=== PATIENT | male | born 1955 | race Two or more races ===

== ENCOUNTER 2020-04-18 20:25 | Inpatient (IN) | payer MEDICARE ==
[~2020-04-18] VITALS: Ht 165.1 cm; Wt 60.8 kg
[2020-04-18] MEDS: D5NS 1,000 ML IV SCH ×2 (20:00)
[2020-04-18 20:25] VITALS: BP 151/90
[2020-04-18] MEDS ORDERED: levETIRAcetam 1,000mg/NS100ml 100 ML IVPB ONE ×2 (20:30→20:47)
--- NOTE | 2020-04-18 20:45 | Emergency Room Report ---
History of Present Illness General Chief Complaint: Seizure Present Illness HPI Disclaimer: Please note that this report is being documented using [employer] technology. This can lead to erroneous entry secondary to incorrect interpretation by the dictating instrument. HPI: 64-year-old male history of seizure disorder, CVA, presents for recurrent seizure. Patient apparently has been noncompliant with his medications at his intermediate facility and had multiple seizures today lasting approximately 1 minute. On EMS arrival patient was actively seizing and given Versed by EMS. Patient does take Keppra. Patient is a full code. Patient was postictal on arrival and could not provide any history. Allergies: Coded Allergies: No Known Allergies (Unverified , 04/18/20) COVID-19 Screening Contact w/high risk pt: No Experienced COVID-19 symptoms?: No COVID-19 Testing performed [employer]: Yes COVID-19 Screening: Negative COVID-19 COVID-19 Testing Source: 04/06 Patient History Reviewed Nursing Documentation: PMH: Agreed; PSxH: Agreed Review of Systems All Other Systems: limited - Patient postictal on arrival Physical Exam Vital Signs Date Time Temp Pulse Resp B/P (MAP) Pulse Ox O2 Delivery O2 Flow Rate FiO2 04/18/20 20:11 144 20 196/102 (133) 100 Non-Rebreather 15.0 Sp02 EP Interpretation: reviewed, other - Normal O2 on oxygen General Appearance: well appearing, no apparent distress Head: normocephalic, atraumatic Eyes: bilateral eye PERRL, bilateral eye EOMI ENT: no angioedema, moist mucus membranes Neck: full range of motion, supple Respiratory: lungs clear, normal breath sounds, no rhonchi, no respiratory distress, no retraction, no wheezing Cardiovascular #1: normal peripheral pulses, no murmur, tachycardia Gastrointestinal: non tender, soft, non-distended, no guarding Musculoskeletal: other - Lower extremities contracted Neurologic: other - Patient lethargic, withdraws to pain, makes incomprehensible sounds, extremities contracted Skin: normal color, warm/dry Medical Decision Making Diagnostic Impression: Primary Impression: Recurrent seizures Additional Impression: Hypokalemia ER Course MDM: Differential included but not limited to medication noncompliance, breakthrough seizure, atrial fibrillation, dehydration potassium repletion ordered for evidence of hypokalemia. Clinical course-IV inserted cardiac monitoring pulse oximetry, IV Keppra ordered. Patient did have A. fib with RVR requiring diltiazem as well. Rate was controlled with IV diltiazem. Has patient had multiple recurrent seizures, hypokalemia, and A. fib with RVR will require admission the hospital for further observation and treatment. Will be admitted to the telemetry floor. At time of me leaving my shift patient pending admission and will be signed out to oncoming physician to discuss with admitting physician. Labs - Laboratory Tests Test 04/18/20 20:45 04/18/20 21:18 White Blood Count 11.0 K/UL (4.8-10.8) H Red Blood Count 4.19 M/UL (4.70-6.10) L Hemoglobin 12.7 G/DL (14.2-18.0) L Hematocrit 38.5 % (42.0-52.0) L Mean Corpuscular Volume 92 FL (80-99) Mean Corpuscular Hemoglobin 30.4 PG (27.0-31.0) Mean Corpuscular Hemoglobin Concent 33.1 G/DL (32.0-36.0) Red Cell Distribution Width 13.6 % (11.6-14.8) Platelet Count 197 K/UL (150-450) Mean Platelet Volume 14.3 FL (6.5-10.1) H Neutrophils (%) (Auto) 69.6 % (45.0-75.0) Lymphocytes (%) (Auto) 20.2 % (20.0-45.0) Monocytes (%) (Auto) 5.3 % (1.0-10.0) Eosinophils (%) (Auto) 3.9 % (0.0-3.0) H Basophils (%) (Auto) 1.0 % (0.0-2.0) Sodium Level 142 MMOL/L (136-145) Potassium Level 2.7 MMOL/L (3.5-5.1) *L Chloride Level 105 MMOL/L (98-107) Carbon Dioxide Level 32 MMOL/L (21-32) Anion Gap 6 mmol/L (5-15) Blood Urea Nitrogen 14 mg/dL (7-18) Creatinine 1.2 MG/DL (0.55-1.30) Estimated Glomerular Filtration Rate > 60 mL/min (>60) Glucose Level 269 MG/DL (74-106) H Calcium Level 8.8 MG/DL (8.5-10.1) Magnesium Level Pending Total Bilirubin 0.3 MG/DL (0.2-1.0) Aspartate Amino Transferase (AST) 77 U/L (15-37) H Alanine Aminotransferase (ALT) 68 U/L (12-78) Alkaline Phosphatase 138 U/L (46-116) H Total Protein 6.9 G/DL (6.4-8.2) Albumin 2.8 G/DL (3.4-5.0) L Globulin 4.1 g/dL Albumin/Globulin Ratio 0.7 (1.0-2.7) L POC Whole Blood Glucose 251 MG/DL (74-106) H Microbiology Date/Time Source Procedure Growth Status 04/18/20 20:45 Nasopharynx SARS-CoV-2 RdRp Gene Assay - Final Complete On reevaluation: Patient resting comfortably in no acute distress Plan-admission to the telemetry floor EKG Diagnostic Results Rate: tachycardiac Rhythm: other - Atrial fibrillation Other Impression Atrial fibrillation with RVR Chest X-Ray Diagnostic Results Chest X-Ray Diagnostic Results : Chest X-Ray Ordered: Yes # of Views/Limited/Complete: 1 View Indication: Shortness of Breath Interpretation: no consolidation, no effusion, no pneumothorax Impression: No acute disease Electronically Signed by: Deonte Babin MD Last Vital Signs Date Time Temp Pulse Resp B/P (MAP) Pulse Ox O2 Delivery O2 Flow Rate FiO2 04/18/20 20:11 144 20 196/102 (133) 100 Non-Rebreather 15.0 Status: improved Disposition: ADMITTED INPATIENT Condition: Serious Deonte Babin M.D. Apr 18, 2020 20:45
[2020-04-18] MEDS ORDERED: dilTIAZem HCl 25mg/5ml Inj IVP ONE (21:00)
[2020-04-18 21:08] LABS: EOSINOPHILS % (AUTO) 3.9 % (0.0-3.0); HEMATOCRIT 38.5 % (42.0-52.0); HEMOGLOBIN 12.7 G/DL (14.2-18.0); LYMPHOCYTES % (AUTO) 20.2 % (20.0-45.0); MEAN CORPUSCULAR VOLUME 92 FL (80-99); MONOCYTES % (AUTO) 5.3 % (1.0-10.0); NEUTROPHILS % (AUTO) 69.6 % (45.0-75.0); PLATELET COUNT 197 K/UL (150-450); RED BLOOD COUNT 4.19 M/UL (4.70-6.10); RED CELL DISTRIBUTION WIDTH 13.6 % (11.6-14.8)
[2020-04-18] MEDS ORDERED: AMLODIPINE BESYL5 MG ORAL (21:41)
[2020-04-18] MEDS ORDERED: MILK OF MA400 MG/51 ORAL (21:41)
[2020-04-18] MEDS ORDERED: LOSARTAN POTASS50 MG ORAL (21:41)
[2020-04-18] MEDS ORDERED: LEVETIRACETAM1000 MG ORAL (21:41)
[2020-04-18] MEDS ORDERED: BISACODYL5 MG ORAL (21:41)
[2020-04-18] MEDS ORDERED: NORCO 5-325 TA1 EAC1 ORAL (21:41)
[2020-04-18] MEDS ORDERED: HUMALOG100 UNIT/3 SUBQ (21:41)
[2020-04-18] MEDS ORDERED: INVANZ1 G1 IM (21:41)
[2020-04-18 21:45] LABS: ALANINE AMINOTRANSFERASE 68 U/L (12-78); ALBUMIN 2.8 G/DL (3.4-5.0); ALBUMIN/GLOBULIN RATIO 0.7 (1.0-2.7); ALKALINE PHOSPHATASE 138 U/L (46-116); ANION GAP 6 mmol/L (5-15); ASPARTATE AMINO TRANSFERASE 77 U/L (15-37); BILIRUBIN,TOTAL 0.3 MG/DL (0.2-1.0); BLOOD UREA NITROGEN 14 mg/dL (7-18); CALCIUM 8.8 MG/DL (8.5-10.1); CARBON DIOXIDE 32 MMOL/L (21-32); CHLORIDE 105 MMOL/L (98-107); CREATININE 1.2 MG/DL (0.55-1.30); SODIUM 142 MMOL/L (136-145)
[2020-04-18 21:46] LABS: POTASSIUM 2.7 MMOL/L (3.5-5.1)
[2020-04-18] MEDS ORDERED: LORazepam Inj 2mg/ml 1ml IV ONE (22:45)
[2020-04-18] MEDS ORDERED: traMADol 50mg tab ORAL PRN (23:00)
[2020-04-18] MEDS ORDERED: LORazepam 1mg tab ORAL PRN (23:00)
[2020-04-18 23:14] VITALS: BP 151/90
[2020-04-19] MEDS ORDERED: LORazepam Inj 2mg/ml 1ml IV PRN (00:30)
[2020-04-19] MEDS: levETIRAcetam 500mg/NS100ml 100 ML IVPB SCH ×3 (00:40→21:00)
[2020-04-19] MEDS: dilTIAZem HCl 25mg/5ml Inj IVP SCH ×6 (01:25→21:00)
[2020-04-19] MEDS ORDERED: traMADol 50mg tab ORAL PRN (01:45)
[2020-04-19 01:52] VITALS: BP 173/91
[2020-04-19 04:00] VITALS: BP 173/90
[2020-04-19 06:48] LABS: HEMATOCRIT 39.5 % (42.0-52.0); HEMOGLOBIN 12.7 G/DL (14.2-18.0); MEAN CORPUSCULAR VOLUME 95 FL (80-99); PLATELET COUNT 165 K/UL (150-450); RED BLOOD COUNT 4.15 M/UL (4.70-6.10); RED CELL DISTRIBUTION WIDTH 13.6 % (11.6-14.8); WHITE BLOOD COUNT 10.6 K/UL (4.8-10.8)
[2020-04-19 07:28] LABS: ALANINE AMINOTRANSFERASE 54 U/L (12-78); ALBUMIN 2.6 G/DL (3.4-5.0); ALBUMIN/GLOBULIN RATIO 0.6 (1.0-2.7); ALKALINE PHOSPHATASE 123 U/L (46-116); ANION GAP 6 mmol/L (5-15); ASPARTATE AMINO TRANSFERASE 43 U/L (15-37); BILIRUBIN,TOTAL 0.4 MG/DL (0.2-1.0); BLOOD UREA NITROGEN 11 mg/dL (7-18); CALCIUM 8.6 MG/DL (8.5-10.1); CARBON DIOXIDE 29 MMOL/L (21-32); CHLORIDE 106 MMOL/L (98-107); CHOLESTEROL 131 MG/DL (< 200); HDL CHOLESTEROL 43 MG/DL (40-60); POTASSIUM 3.3 MMOL/L (3.5-5.1); SODIUM 141 MMOL/L (136-145); TRIGLYCERIDES 43 MG/DL (30-150)
[2020-04-19 08:00] VITALS: BP 159/73
--- NOTE | 2020-04-19 08:06 | History & Physical ---
History and Physical History & Physicial Seen and examined. Full Dictation completed on 800 hrs. David Kaplan MD Apr 19, 2020 08:06
--- NOTE | 2020-04-19 08:08 | General Progress Note ---
Subjective Allergies: Coded Allergies: No Known Allergies (Unverified , 04/18/20) Objective Last 24 Hour Vital Signs Date Time Temp Pulse Resp B/P (MAP) Pulse Ox O2 Delivery O2 Flow Rate FiO2 04/19/20 05:21 81 173/90 04/19/20 04:00 99.0 73 20 173/90 (117) 100 04/19/20 01:52 Nasal Cannula 4.0 04/19/20 01:52 99.1 78 20 173/91 (118) 100 04/19/20 01:52 93 04/19/20 01:25 85 162/84 04/18/20 23:30 98.8 85 18 150/91 100 Nasal Cannula 4.0 04/18/20 23:14 98.8 83 18 151/90 100 Nasal Cannula 4.0 04/18/20 23:12 83 18 151/90 100 04/18/20 22:42 98 16 136/81 98 04/18/20 20:53 128 150/79 04/18/20 20:25 98.8 144 20 151/90 100 Nasal Cannula 4.0 04/18/20 20:25 144 20 Non-Rebreather 15.0 04/18/20 20:11 144 20 196/102 (133) 100 Non-Rebreather 15.0 Intake and Output 04/18/20 04/19/20 19:00 07:00 Intake Total 1100 ml Balance 1100 ml Intake IV Total 1100 ml # Voids 4 Laboratory Tests 04/18/20 20:30: Troponin I 0.290H 04/18/20 20:45: White Blood Count 11.0H, Red Blood Count 4.19L, Hemoglobin 12.7L, Hematocrit 38.5L, Mean Corpuscular Volume 92, Mean Corpuscular Hemoglobin 30.4, Mean Corpuscular Hemoglobin Concent 33.1, Red Cell Distribution Width 13.6, Platelet Count 197, Mean Platelet Volume 14.3H, Neutrophils (%) (Auto) 69.6, Lymphocytes (%) (Auto) 20.2, Monocytes (%) (Auto) 5.3, Eosinophils (%) (Auto) 3.9H, Basophils (%) (Auto) 1.0, Sodium Level 142, Potassium Level 2.7*L, Chloride Level 105, Carbon Dioxide Level 32, Anion Gap 6, Blood Urea Nitrogen 14, Creatinine 1.2, Estimat Glomerular Filtration Rate > 60, Glucose Level 269H, Hemoglobin A1c 6.3H, Calcium Level 8.8, Magnesium Level 1.8, Total Bilirubin 0.3, Aspartate Amino Transf (AST/SGOT) 77H, Alanine Aminotransferase (ALT/SGPT) 68, Alkaline Phosphatase 138H, Total Protein 6.9, Albumin 2.8L, Globulin 4.1, Albumin/Globulin Ratio 0.7L 04/18/20 21:18: POC Whole Blood Glucose 251H 04/19/20 05:50: White Blood Count 10.6, Red Blood Count 4.15L, Hemoglobin 12.7L, Hematocrit 39.5L, Mean Corpuscular Volume 95, Mean Corpuscular Hemoglobin 30.6, Mean Corpus cular Hemoglobin Concent 32.2, Red Cell Distribution Width 13.6, Platelet Count 165, Mean Platelet Volume 13.1H, Neutrophils (%) (Auto) , Lymphocytes (%) (Auto) , Monocytes (%) (Auto) , Eosinophils (%) (Auto) , Basophils (%) (Auto) , Sodium Level 141, Potassium Level 3.3L, Chloride Level 106, Carbon Dioxide Level 29, Anion Gap 6, Blood Urea Nitrogen 11, Creatinine 1.0, Estimat Glomerular Filtration Rate > 60, Glucose Level 283H, Calcium Level 8.6, Total Bilirubin 0.4, Aspartate Amino Transf (AST/SGOT) 43H, Alanine Aminotransferase (ALT/SGPT) 54, Alkaline Phosphatase 123H, Total Protein 7.2, Albumin 2.6L, Globulin 4.6, Albumin/Globulin Ratio 0.6L, Neutrophils % (Manual) [Pending], Lymphocytes % (Manual) [Pending], Platelet Estimate [Pending], Platelet Morphology [Pending], Pro-B-Type Natriuretic Peptide 1001H, Triglycerides Level 43, Cholesterol Level 131, LDL Cholesterol 75, HDL Cholesterol 43, Cholesterol/HDL Ratio 3.0L, Thyroid Stimulating Hormone (TSH) 1.006 Height (Feet): 5 Height (Inches): 5.00 Weight (Pounds): 134 Assessment/Plan Assessment/Plan: Seen and examined. Full Dictation in progress Plan: 1- Sz D/o 2- Abd troponin 3. Non compliance with meds Nephro Cardio ID are consulted and notified David Kaplan MD Apr 19, 2020 08:08
--- NOTE | 2020-04-19 08:52 | Infectious Diseases Prog Note ---
Assessment/Plan Problems: (1) Suspected 2019 novel coronavirus infection Assessment & Plan: will send PCR test to confirm , place in isolation for now (2) Fever Assessment & Plan: rule out infectious etiology , will send blood culture x 2 and UA , obtain COVID 19 PCR test to confirm , start vancomycin and aztreonam empirically (3) Recurrent seizures Assessment & Plan: reloaded with meds, watch out for breakthrough , neurology eval, aspiration precaution (4) Hypoxemia requiring supplemental oxygen Assessment & Plan: rule out viral etiology with negative CXR for infiltration , will send COVID 19 PCR test to confirm and influenza A&B . keep in isolation, monitor CXR and ABG Subjective Allergies: Coded Allergies: No Known Allergies (Unverified , 04/18/20) Objective Last 24 Hour Vital Signs Date Time Temp Pulse Resp B/P (MAP) Pulse Ox O2 Delivery O2 Flow Rate FiO2 04/19/20 05:21 81 173/90 04/19/20 04:00 99.0 73 20 173/90 (117) 100 04/19/20 01:52 Nasal Cannula 4.0 04/19/20 01:52 99.1 78 20 173/91 (118) 100 04/19/20 01:52 93 04/19/20 01:25 85 162/84 04/18/20 23:30 98.8 85 18 150/91 100 Nasal Cannula 4.0 04/18/20 23:14 98.8 83 18 151/90 100 Nasal Cannula 4.0 04/18/20 23:12 83 18 151/90 100 04/18/20 22:42 98 16 136/81 98 04/18/20 20:53 128 150/79 04/18/20 20:25 98.8 144 20 151/90 100 Nasal Cannula 4.0 04/18/20 20:25 144 20 Non-Rebreather 15.0 04/18/20 20:11 144 20 196/102 (133) 100 Non-Rebreather 15.0 Height (Feet): 5 Height (Inches): 5.00 Weight (Pounds): 134 Microbiology Date/Time Source Procedure Growth Status 04/18/20 20:45 Rectal Mucosa Received 04/18/20 20:45 Nasopharynx SARS-CoV-2 RdRp Gene Assay - Final Complete Laboratory Tests Test 04/18/20 20:30 04/18/20 20:45 04/18/20 21:18 04/19/20 05:50 Troponin I 0.290 ng/mL (0.000-0.056) White Blood Count 11.0 K/UL (4.8-10.8) H 10.6 K/UL (4.8-10.8) Red Blood Count 4.19 M/UL (4.70-6.10) L 4.15 M/UL (4.70-6.10) L Hemoglobin 12.7 G/DL (14.2-18.0) L 12.7 G/DL (14.2-18.0) L Hematocrit 38.5 % (42.0-52.0) L 39.5 % (42.0-52.0) L Mean Corpuscular Volume 92 FL (80-99) 95 FL (80-99) Mean Corpuscular Hemoglobin 30.4 PG (27.0-31.0) 30.6 PG (27.0-31.0) Mean Corpuscular Hemoglobin Concent 33.1 G/DL (32.0-36.0) 32.2 G/DL (32.0-36.0) Red Cell Distribution Width 13.6 % (11.6-14.8) 13.6 % (11.6-14.8) Platelet Count 197 K/UL (150-450) 165 K/UL (150-450) Mean Platelet Volume 14.3 FL (6.5-10.1) H 13.1 FL (6.5-10.1) H Neutrophils (%) (Auto) 69.6 % (45.0-75.0) % (45.0-75.0) Lymphocytes (%) (Auto) 20.2 % (20.0-45.0) % (20.0-45.0) Monocytes (%) (Auto) 5.3 % (1.0-10.0) % (1.0-10.0) Eosinophils (%) (Auto) 3.9 % (0.0-3.0) H % (0.0-3.0) Basophils (%) (Auto) 1.0 % (0.0-2.0) % (0.0-2.0) Sodium Level 142 MMOL/L (136-145) 141 MMOL/L (136-145) Potassium Level 2.7 MMOL/L (3.5-5.1) *L 3.3 MMOL/L (3.5-5.1) L Chloride Level 105 MMOL/L (98-107) 106 MMOL/L (98-107) Carbon Dioxide Level 32 MMOL/L (21-32) 29 MMOL/L (21-32) Anion Gap 6 mmol/L (5-15) 6 mmol/L (5-15) Blood Urea Nitrogen 14 mg/dL (7-18) 11 mg/dL (7-18) Creatinine 1.2 MG/DL (0.55-1.30) 1.0 MG/DL (0.55-1.30) Estimat Glomerular Filtration Rate > 60 mL/min (>60) > 60 mL/min (>60) Glucose Level 269 MG/DL (74-106) H 283 MG/DL (74-106) H Hemoglobin A1c 6.3 % (4.3-6.0) H Calcium Level 8.8 MG/DL (8.5-10.1) 8.6 MG/DL (8.5-10.1) Magnesium Level 1.8 MG/DL (1.8-2.4) Total Bilirubin 0.3 MG/DL (0.2-1.0) 0.4 MG/DL (0.2-1.0) Aspartate Amino Transf (AST/SGOT) 77 U/L (15-37) H 43 U/L (15-37) H Alanine Aminotransferase (ALT/SGPT) 68 U/L (12-78) 54 U/L (12-78) Alkaline Phosphatase 138 U/L (46-116) H 123 U/L (46-116) H Total Protein 6.9 G/DL (6.4-8.2) 7.2 G/DL (6.4-8.2) Albumin 2.8 G/DL (3.4-5.0) L 2.6 G/DL (3.4-5.0) L Globulin 4.1 g/dL 4.6 g/dL Albumin/Globulin Ratio 0.7 (1.0-2.7) L 0.6 (1.0-2.7) L POC Whole Blood Glucose 251 MG/DL (74-106) H Neutrophils % (Manual) Pending Lymphocytes % (Manual) Pending Platelet Estimate Pending Platelet Morphology Pending Pro-B-Type Natriuretic Peptide 1001 pg/mL (0-125) H Triglycerides Level 43 MG/DL (30-150) Cholesterol Level 131 MG/DL (< 200) LDL Cholesterol 75 mg/dL (<100) HDL Cholesterol 43 MG/DL (40-60) Cholesterol/HDL Ratio 3.0 (3.3-4.4) L Thyroid Stimulating Hormone (TSH) 1.006 uiU/mL (0.358-3.740) Current Medications Medications (Trade) Dose Ordered Sig/[place] Route PRN Reason Start Time Stop Time Status Last Admin Dose Admin Dextrose (Dextrose 50%) 25 ml Q30M PRN IV Hypoglycemia 04/19/20 07:30 07/18/20 07:29 Dextrose (Dextrose 50%) 50 ml Q30M PRN IV Hypoglycemia 04/19/20 07:30 07/18/20 07:29 Diltiazem HCl (Cardizem) 25 mg Q4HR IVP 04/19/20 01:00 05/19/20 00:59 04/19/20 05:21 Enoxaparin Sodium (Lovenox) 60 mg EVERY 12 HOURS SUBQ 04/19/20 09:00 07/18/20 08:59 Insulin Aspart (NovoLOG) BEFORE MEALS AND HS SUBQ 04/19/20 11:30 07/18/20 11:29 Levetiracetam 100 ml @ 400 mls/hr Q12HR IVPB 04/19/20 00:00 07/18/20 00:00 04/19/20 00:40 Lorazepam (Ativan 2mg/ml 1ml) 1 mg Q1H PRN IV For Seizures 04/19/20 00:30 04/26/20 00:29 Pantoprazole (Protonix) 40 mg DAILY IVP 04/19/20 09:00 05/19/20 08:59 Sodium Chloride 1,000 ml @ 75 mls/hr [id number] IV 04/19/20 08:30 05/19/20 08:29 Tramadol HCl (Ultram) 25 mg BID PRN ORAL For Pain 04/19/20 01:45 04/25/20 22:59 Hermann Blue M.D. Apr 19, 2020 08:52
[2020-04-19] MEDS: Pantoprazole Inj IVP SCH (08:55)
[2020-04-19] MEDS ORDERED: Enoxaparin 40mg Inj SUBQ SCH (09:00)
[2020-04-19] MEDS: Enoxaparin 60mg Inj SUBQ SCH ×2 (09:01→21:00)
[2020-04-19] MEDS ORDERED: Vancomycin 1.5gm/NS Premix IVPB ONE (10:00)
[2020-04-19] MEDS: Nitroglycerin 2% oint pkt TOPIC SCH (10:24)
--- NOTE | 2020-04-19 10:30 | History and Physical Report ---
DATE OF ADMISSION: 04/18/2020 SOURCE OF INFORMATION: EMR. HISTORY OF PRESENT ILLNESS: The patient is a 64-year-old male with history of seizure disorder who was transferred from the intermediate facility after presentation of recurrent seizure. Reportedly, per the emergency room ER attending dictation, the patient had been noncompliant with medications. At the time of evaluation in the emergency room, the patient remained delirious. However, he appears comfortable. No abnormal bleeding or trauma has been reported. ALLERGIES: NKDA. FAMILY HISTORY: Cannot be obtained. SOCIAL HISTORY: The patient is residing in a intermediate facility. Remainder of information cannot be obtained. MEDICATIONS: Current hospital medications including, but not including to tramadol, lorazepam, Keppra, diltiazem. PAST MEDICAL AND SURGICAL HISTORY: Including but not limited to HIV, diabetes, seizure disorder, noncompliance with medication, hypertension. PHYSICAL EXAMINATION: VITAL SIGNS: Blood pressure 200/100, pulse rate 140, respiratory rate 18, temperature 98.8. HEAD AND NECK: Atraumatic and normocephalic. CHEST: Diffuse bronchial breathing sounds. HEART: S1 and S2. Irregular rate and rhythm. ABDOMEN: Soft. No organomegaly. MUSCULOSKELETAL: Spontaneous movement in all four extremities. Limited evaluation. NEUROLOGY: The patient is delirious. LABORATORY DATA: Dated April 18, 2020 shows WBC 11, hemoglobin of 12.7, platelet count of 197. Sodium 142, potassium 2.7, BUN 14, and creatinine 1.2, glucose 269. ASSESSMENT: 1. Breakthrough seizure secondary to noncompliance with medications. 2. Leukocytosis, likely reactive. 3. Chronic anemia. 4. Hypokalemia. 5. Diabetes type 2. 6. Abnormal troponin. 7. Atrial flutter. 8. GI and DVT prophylaxis. 9. We will continue with antiepileptic medication. 10. Continue with neuro checks. 11. We will start the patient on aspirin. 12. We will monitor off the antibiotic for now. 13. Obtain 2D echo. 14. Cardiology, Dr. Ojeda, Nephrology Dr. Doyle, Infectious Diseases, Dr. Blue, they have been consulted and notified. Time of this dictation does not reflect the actual time of encounter occurred on April 18, 2020 at 11 p.m. Millerammamary Kaplan M.D. DR: Jesus JOB#: [id number] CC:
--- NOTE | 2020-04-19 11:45 | Consultation ---
DATE OF CONSULTATION: 04/19/2020 PULMONARY CONSULTATION CONSULTING PHYSICIAN: Saturnino Dalal MD. REFERRING PHYSICIAN: David Kaplan MD. REASON FOR CONSULTATION: 1. Seizure. 2. Rule out COVID. HISTORY OF PRESENT ILLNESS: This is a 64-year-old alf resident with a previous history of CVA and seizure disorder. The patient has been noncompliant with medications per documentation. He was found to have multiple seizures at the nursing facility. When paramedics arrived, he was given Versed. He was a Full Code. He was brought to the hospital. The patient at this time is lethargic, unable to answer questions. PAST MEDICAL HISTORY: Notable for seizure disorder, previous CVA, alf resident. REVIEW OF SYSTEMS: Not reliable. PAST SURGICAL HISTORY: None reported. SOCIAL HISTORY: [facility] resident. HOME MEDICATIONS: Include Keppra. PHYSICAL EXAMINATION: GENERAL: Reveals a 64-year-old male. VITAL SIGNS: Blood pressure 150/70, heart rate 84, respiratory rate 18, O2 saturation saturation 100% on room air. HEENT: Unremarkable. CHEST: Clear breath sounds bilaterally. ABDOMEN: Soft. EXTREMITIES: There is no edema. NEUROLOGIC: Nonfocal. LABORATORY DATA: Lab testing shows white count 10.6, hemoglobin 12.7, . Glucose 251, potassium 3.3. Troponin 0.773. Alkaline phosphatase 123. The patient's rapid COVID-19 testing was negative. IMPRESSION: 1. Low suspicion for COVID-19 pneumonia. 2. Recurrent seizures. 3. Medication noncompliance. 4. CVA. 5. [facility] resident. DISCUSSION: At this point does not need to be isolated for COVID-19 as this is low suspicion and rapid gene assay is negative. Continue medications for seizures. Currently, Keppra would be appropriate 500 mg twice a day. Empiric antibiotics for 24 hours. DVT prophylaxis. We will follow. Saturnino Dalal M.D. DR: Sapphire JOB#: [id number] CC:
[2020-04-19 12:00] VITALS: BP 151/82
[2020-04-19] MEDS: NovoLOG Insulin Flexpen SUBQ SCH ×4 (12:29→21:00)
[2020-04-19 13:09] LABS: APPEARANCE,URINE CLEAR; BILIRUBIN, URINE NEGATIVE (NEGATIVE); COLOR,URINE PALE YELLOW; GLUCOSE, URINE (UA) 4+ (NEGATIVE); KETONES,URINE NEGATIVE (NEGATIVE); LEUKOCYTE ESTERASE ,URINE NEGATIVE (NEGATIVE); NITRITE,URINE NEGATIVE (NEGATIVE); PH,URINE 6 (4.5-8.0); PROTEIN,URINE 3+ (NEGATIVE); UROBILINOGEN,URINE NORMAL MG/DL (0.0-1.0)
[2020-04-19] MEDS: Aztreonam Inj 2 GM in D5W 110 ML IVPB SCH ×2 (13:42→22:23)
--- NOTE | 2020-04-19 14:46 | Cardiology Report ---
APPROVED REPORT EXAM: Two-dimensional and M-mode echocardiogram with Doppler and color Doppler. INDICATION A-FLUTTER M-Mode DIMENSIONS IVSd0.9 (0.7-1.1cm)Left Atrium (MM)3.5 (1.6-4.0cm) LVDd4.3 (3.5-5.6cm)Aortic Root2.6 (2.0-3.7cm) PWd0.9 (0.7-1.1cm)Aortic Cusp Exc.1.8 (1.5-2.0cm) IVSs1.7 cm LVDs2.6 (2.5-4.0cm) PWs1.6 cm <Conclusion> Normal left ventricular chamber size, systolic function and wall motion. Left ventricular ejection fraction estimated to be 60%. Small posterior pericardial effusion. All other cardiac chamber sizes are within normal limits. Calcification of aortic valve with adequate cusp excursion. Moderate thickened mitral valve leaflets with normal excursion,echogenic material noted on anterior mitral valve leaflet. Mitral annulus and aortic root calcification. Pulmonic valve not well visualized. Normal tricuspid valve structure. IVC at normal size with physiologic collapse. A color flow and spectral Doppler study was performed and revealed: Trace mitral regurgitation. Mitral diastolic velocities suggest reduced left ventricular relaxation c/w mild LV diastolic dysfunction (Grade I ). Trace tricuspid regurgitation. Tricuspid systolic velocities suggests peak right ventricular systolic pressure of 10 mmHg. Trace pulmonic regurgitation present.
[2020-04-19 16:00] VITALS: BP 165/78
--- NOTE | 2020-04-19 16:30 | Consultation ---
DATE OF CONSULTATION: 04/19/2020 INTERVENTIONAL CARDIOLOGY CONSULTATION NOTE CONSULTING PHYSICIAN: Andrez Ojeda MD CHIEF COMPLAINT: Seizures, hypokalemia, low fever, hypertensive urgency. HISTORY OF PRESENT ILLNESS: This is a 64-year-old male with past medical history significant for seizure disorder, cerebrovascular accident, aphagia, hypertension, and diabetes mellitus type 2 admitted through the ER after recurrent seizure. Patient was in a shelter facility. Apparently, he has been noncompliant with his medications resulting in a seizure prior to admission. Once in ER, patient was worked up, found to be in atrial fibrillation, atrial flutter with RVR, started on diltiazem, patient has since converted to sinus rhythm. Unclear cardiac history. Unknown whether he has undergone cardiac cath or PCI in the past. At the time of exam, patient is in sinus rhythm, rate controlled, hypertensive. Systolic blood pressure 150 to 160, lying in bed, unable to answer questions. ALLERGIES: No known drug allergies. TEST RESULTS: EKG on admission, AFib/AFlutter with RVR. EKG now, sinus rhythm, T-wave inversions V1, V2, V3. Echocardiogram pending. PAST MEDICAL HISTORY: Seizure disorder, diabetes mellitus type 2, hypertension. SOCIAL HISTORY: Lives at shelter facility. WORKING HISTORY: Unknown. LABORATORY REVIEW: WBC 10.6, hemoglobin 12.7. Sodium 147, potassium 3.3, creatinine 1.0. BNP 1001. LDL 75. Magnesium 1.8. Troponin pending. HOME MEDICATIONS: Significant for amlodipine, insulin, losartan, given diltiazem for rhythm and Lovenox for AFib in the ER. PHYSICAL EXAMINATION: VITAL SIGNS: Blood pressure 173/90, respiratory rate of 18, heart rate 81, temperature 99. GENERAL: No acute distress, calm, lying in bed. HEENT: EOMs are intact. Nonicteric. NECK: No JVD. No bruit. CHEST: Symmetrical expansion. Crackles at lung bases. Bronchial breath sounds. No wheeze. CARDIOVASCULAR: Rhythmic and regular. S1 and S2. Quiet heart sounds. ABDOMEN: Soft, nondistended, nontender. EXTREMITIES: Somewhat contracted, thin, muscle wasting. No obvious lesion. NEUROLOGIC: Lethargic. Does not respond to a command. Unable to answer questions. ASSESSMENT AND PLAN: 1. AFib/AFlutter with RVR, now converted to sinus rhythm after IV diltiazem. 2. Hypertension and hypertensive urgency. 3. Seizure disorder with recent seizure activity due to noncompliance with medications. 4. Diabetes mellitus type 2 with hyperglycemia. 5. Hypokalemia. 6. hypomagnesemia. RECOMMENDATIONS: We will check troponin x3. Rule out acute cardiac syndrome as contributing factor, patient now in sinus rhythm after IV diltiazem. Once 24 hours of diltiazem has , we will transition to p.o. if patient is able to swallow at that time. Patient in fluid overload. Echocardiogram pending. We will start diuresis with Lasix to help alleviate fluid overload. Potassium, magnesium replaced. Chest x-ray pending. Further records to follow. The above assessment and plan was discussed with Dr. Ojeda and agreed to as above. Andrez Ojeda MD Larissa Tavares PA-C DR: SIMONA JOB#: [id number] CC:
--- NOTE | 2020-04-19 17:44 | Consultation ---
DATE OF CONSULTATION: 04/19/2020 INFECTIOUS DISEASE CONSULTATION CONSULTING PHYSICIAN: Hermann Blue MD REFERRING PHYSICIAN: David Kaplan MD REASON FOR CONSULTATION: Fever with hypoxemia, rule out viral etiology. HISTORY OF PRESENT ILLNESS: The patient is a 64-year-old male with past medical history of seizure disorder and CVA, with noncompliance to medication, who was sent [facility] for multiple seizure breakthrough episodes, which lasted 1 minute each. Upon arrival to the ED, the patient was actively seizing and was given Versed by EMS. He normally takes Keppra and he was in postictal state upon arrival with pulse of 144 and blood pressure of 196/102, saturating 100% on non-rebreather mask. The patient was having low-grade fever and he was hypoxemic upon arrival to the ED requiring high-flow oxygen. Chest x-ray showed no consolidation or effusion to explain his hypoxemia, had screening for COVID-19 with rapid gene assay test, the result of which was negative and his WBC was mildly elevated, so the patient was admitted to the medical/surgical floor for seizure breakthrough for further evaluation. Infectious Disease consultation was requested for fever and hypoxemia to rule out viral etiology. As of note, the patient is poor historian. Cannot provide good history at this time. All details were obtained from medical record and nursing staff. REVIEW OF SYSTEMS: Unable to obtain. The patient is poor historian. PAST MEDICAL HISTORY: Significant for seizure disorder and CVA. PAST SURGICAL HISTORY: Not on record. FAMILY HISTORY: Unable to obtain. SOCIAL HISTORY: He is a care home resident. No recent drugs, tobacco, or alcohol. ALLERGIES: No known drug allergies. MEDICATIONS: He is on Keppra, Lasix, nitroglycerin, Lovenox, and Protonix. LABORATORY AND DIAGNOSTIC DATA: Labs showed WBC of 11,000, hemoglobin of 12.7, platelet count of 197,000; neutrophils of 69. BUN of 14, creatinine of 1.2. AST of 77, alkaline phosphatase of 138. Radiology, chest x-ray showed no infiltration or consolidation. Microbiology screening for COVID-19 came back negative. PHYSICAL EXAMINATION: VITAL SIGNS: Temperature 98.8, pulse 98, respirations 16, blood pressure 136/81, saturation 98% on 4 L nasal cannula. GENERAL: Middle-aged male, lying in bed, comfortable, not in acute distress, unresponsive to verbal commands. HEENT: Normocephalic and atraumatic. Pupils are reactive to light, equal. Moist oral mucosa. No exudate or thrush. NECK: Supple. No lymphadenopathy. CARDIOVASCULAR: He was tachycardic. S1, S2 normal. No murmur or gallop. LUNGS: Clear bilaterally. Diminished breathing sounds at the bases. No wheezing or rhonchi. ABDOMEN: Soft, nontender, nondistended. Normal bowel sounds. No hepatosplenomegaly or ascites. EXTREMITIES: No edema or cyanosis. SKIN: No rash. No hives. No ulceration. ASSESSMENT AND RECOMMENDATION: 1. Suspected 2019 novel coronavirus infection. We will send PCR test to confirm and place the patient on isolation for now. Oxygen supplement as needed. 2. Fever, rule out infectious etiology. We will send blood culture x2 and UA, obtain COVID-19 PCR test to confirm. Start vancomycin and aztreonam empiric coverage. 3. Recurrent seizure. The patient was re-loaded with medications. Watch out for breakthrough. Neurology evaluation. Aspiration precaution. 4. Hypoxemia, requiring supplemental oxygen, rule out viral etiology with negative chest x-ray for the infiltration. We will send COVID-19 PCR test to confirm and influenza screening A and B, keep the patient in enhanced droplet isolation for now. Monitor chest x-ray and ABG. Thank you for the consult. ID will continue to follow. Please feel free to call with any question. Hermann Blue M.D. DR: Eliza JOB#: [id number] CC: RIAT
[2020-04-19 20:00] VITALS: BP 164/82
[2020-04-19] MEDS ORDERED: Vancomycin 500mg/D5W 110ml IVPB SCH ×2 (22:00)
[2020-04-19] MEDS: Vancomycin 750mg/NS 275ml IVPB SCH ×2 (22:24)
[2020-04-20] VITALS: BP 145/78
[2020-04-20] MEDS: dilTIAZem HCl 25mg/5ml Inj IVP SCH ×6 (01:22→20:24)
[2020-04-20 04:00] VITALS: BP 150/82
[2020-04-20] MEDS: Aztreonam Inj 2 GM in D5W 110 ML IVPB SCH ×3 (05:39→21:56)
[2020-04-20] MEDS: NovoLOG Insulin Flexpen SUBQ SCH ×4 (06:31→20:26)
[2020-04-20 07:36] LABS: ALANINE AMINOTRANSFERASE 38 U/L (12-78); ALBUMIN 2.5 G/DL (3.4-5.0); ALBUMIN/GLOBULIN RATIO 0.6 (1.0-2.7); ALKALINE PHOSPHATASE 102 U/L (46-116); ANION GAP 7 mmol/L (5-15); ASPARTATE AMINO TRANSFERASE 23 U/L (15-37); BILIRUBIN,TOTAL 0.6 MG/DL (0.2-1.0); BLOOD UREA NITROGEN 8 mg/dL (7-18); CALCIUM 8.1 MG/DL (8.5-10.1); CARBON DIOXIDE 29 MMOL/L (21-32); CHLORIDE 104 MMOL/L (98-107); CREATINE KINASE 287 U/L (26-308); CREATININE 0.8 MG/DL (0.55-1.30); SODIUM 138 MMOL/L (136-145)
[2020-04-20 07:38] LABS: POTASSIUM 2.6 MMOL/L (3.5-5.1)
[2020-04-20 07:41] LABS: BASOPHILS % (AUTO) 0.5 % (0.0-2.0); EOSINOPHILS % (AUTO) 1.4 % (0.0-3.0); HEMATOCRIT 34.8 % (42.0-52.0); HEMOGLOBIN 11.3 G/DL (14.2-18.0); LYMPHOCYTES % (AUTO) 23.1 % (20.0-45.0); MEAN CORPUSCULAR VOLUME 92 FL (80-99); MONOCYTES % (AUTO) 6.5 % (1.0-10.0); NEUTROPHILS % (AUTO) 68.5 % (45.0-75.0); PLATELET COUNT 132 K/UL (150-450); RED CELL DISTRIBUTION WIDTH 13.2 % (11.6-14.8); WHITE BLOOD COUNT 10.5 K/UL (4.8-10.8)
[2020-04-20 08:00] VITALS: BP 183/92
[2020-04-20] MEDS ORDERED: Potassium Phosphate 20 MM in NS 275 ML IV ONE (09:00)
[2020-04-20] MEDS: Pantoprazole Inj IVP SCH (09:10)
[2020-04-20] MEDS: Potassium Chloride 40 MEQ in 1/2 NS 1000ml 1,000 ML IV SCH (09:11)
[2020-04-20] MEDS: Enoxaparin 60mg Inj SUBQ SCH ×2 (09:12→20:25)
[2020-04-20] MEDS: Nitroglycerin 2% oint pkt TOPIC SCH (09:26)
--- NOTE | 2020-04-20 09:54 | General Progress Note ---
Subjective Allergies: Coded Allergies: No Known Allergies (Unverified , 04/18/20) Objective Last 24 Hour Vital Signs Date Time Temp Pulse Resp B/P (MAP) Pulse Ox O2 Delivery O2 Flow Rate FiO2 04/20/20 09:26 183/92 04/20/20 09:09 67 183/92 04/20/20 08:00 98.8 67 18 183/92 (122) 98 04/20/20 04:55 65 150/82 04/20/20 04:00 98.8 65 20 150/82 (104) 100 04/20/20 04:00 68 04/20/20 01:22 76 145/78 04/20/20 00:00 82 04/20/20 00:00 99.3 76 16 145/78 (100) 99 04/19/20 21:00 82 164/82 04/19/20 21:00 Nasal Cannula 4.0 04/19/20 20:00 99.9 82 20 164/82 (109) 100 04/19/20 17:12 81 165/78 04/19/20 16:00 98.6 81 20 165/78 (107) 98 04/19/20 16:00 90 04/19/20 13:41 83 151/82 04/19/20 12:00 74 04/19/20 12:00 99.3 83 20 151/82 (105) 98 04/19/20 10:24 159/73 Intake and Output 04/19/20 04/20/20 19:00 07:00 Output Total 625 ml 550 ml Balance -625 ml -550 ml Output Urine Total 625 ml 550 ml # Voids 2 # Bowel Movements 1 3 Laboratory Tests 04/19/20 11:08: Urine Color Pale yellow, Urine Appearance Clear, Urine pH 6, Urine Specific [place] 1.015, Urine Protein 3+H, Urine Glucose (UA) 4+H, Urine Ketones Negative, Urine Blood 3+H, Urine Nitrite Negative, Urine Bilirubin Negative, Urine Urobilinogen Normal, Urine Leukocyte Esterase Negative, Urine RBC 2-4H, Urine WBC 0-2, Urine Squamous Epithelial Cells Occasional, Urine Bacteria Occasional, Urine Yeast OccasionalH 04/19/20 11:50: POC Whole Blood Glucose 243H 04/19/20 15:03: Potassium Level 3.0L, Magnesium Level 2.1 11/8/20 16:35: POC Whole Blood Glucose 145H 04/20/20 04:00: White Blood Count 10.5, Red Blood Count 3.80L, Hemoglobin 11.3L, Hematocrit 34.8L, Mean Corpuscular Volume 92, Mean Corpuscular Hemoglobin 29.8, Mean Corpuscular Hemoglobin Concent 32.6, Red Cell Distribution Width 13.2, Platelet Count 132L, Mean Platelet Volume 13.4H, Neutrophils (%) (Auto) 68.5, Lymphocytes (%) (Auto) 23.1, Monocytes (%) (Auto) 6.5, Eosinophils (%) (Auto) 1.4, Basophils (%) (Auto) 0.5, Sodium Level 138, Potassium Level 2.6*L, Chloride Level 104, Carbon Dioxide Level 29, Anion Gap 7, Blood Urea Nitrogen 8, Creatinine 0.8, Estimat Glomerular Filtration Rate > 60, Glucose Level 148#H, Uric Acid 3.1, Calcium Level 8.1L, Phosphorus Level 2.0L, Magnesium Level 1.7L, Total Bilirubin 0.6, Aspartate Amino Transf (AST/SGOT) 23, Alanine Aminotransferase (ALT/SGPT) 38, Alkaline Phosphatase 102, Total Creatine Kinase 287, C-Reactive Protein, Quantitative 4.9H, Pro-B-Type Natriuretic Peptide 533H, Total Protein 6.7, Albumin 2.5L, Globulin 4.2, Albumin/Globulin Ratio 0.6L Height (Feet): 5 Height (Inches): 5.00 Weight (Pounds): 134 Assessment/Plan Assessment/Plan: S, O: Limited, patient is delirious PHYSICAL EXAMINATION:HEAD AND NECK: Atraumatic and normocephalic. CHEST: Diffuse bronchial breathing sounds.HEART: S1 and S2. Irregular rate and rhythm. ABDOMEN: Soft. No organomegaly.MUSCULOSKELETAL: Spontaneous movement in all four extremities. Limited evaluation.NEUROLOGY: The patient is delirious. Meds: reviewed and reconciled ASSESSMENT: 1. Breakthrough seizure secondary to noncompliance with medications. 2. Leukocytosis, likely reactive. 3. Chronic anemia. 4. Hypokalemia. 5. Diabetes type 2. 6. Abnormal troponin. 7. Atrial flutter. 8. GI and DVT prophylaxis. 9. We will continue with antiepileptic medication. 10. Continue with neuro checks. 11. We will start the patient on aspirin. 12. We will monitor off the antibiotic for now. 13. Obtain 2D echo. Plan: current empirical abx isolation per ID will optimize BP med, followup with cardiology David Kaplan MD Apr 20, 2020 09:54
[2020-04-20] MEDS ORDERED: HydrALAZINE 25mg tab ORAL SCH (09:58)
[2020-04-20] MEDS: levETIRAcetam 500mg/NS100ml 100 ML IVPB SCH ×2 (10:11→20:24)
--- NOTE | 2020-04-20 10:46 | Pulmonology Progress Note ---
Subjective Interval Events: None new Constitutional: Reports: no symptoms HEENT: Repors: no symptoms Respiratory: Reports: no symptoms Cardiovascular: Reports: no symptoms Gastrointestinal/Abdominal: Reports: no symptoms Allergies: Coded Allergies: No Known Allergies (Unverified , 04/18/20) Objective Last 24 Hour Vital Signs Date Time Temp Pulse Resp B/P (MAP) Pulse Ox O2 Delivery O2 Flow Rate FiO2 04/20/20 09:26 183/92 04/20/20 09:09 67 183/92 04/20/20 08:00 98.8 67 18 183/92 (122) 98 04/20/20 04:55 65 150/82 04/20/20 04:00 98.8 65 20 150/82 (104) 100 04/20/20 04:00 68 04/20/20 01:22 76 145/78 04/20/20 00:00 82 04/20/20 00:00 99.3 76 16 145/78 (100) 99 04/19/20 21:00 82 164/82 04/19/20 21:00 Nasal Cannula 4.0 04/19/20 20:00 99.9 82 20 164/82 (109) 100 04/19/20 17:12 81 165/78 04/19/20 16:00 98.6 81 20 165/78 (107) 98 04/19/20 16:00 90 04/19/20 13:41 83 151/82 04/19/20 12:00 74 04/19/20 12:00 99.3 83 20 151/82 (105) 98 Intake and Output 04/19/20 04/20/20 19:00 07:00 Output Total 625 ml 550 ml Balance -625 ml -550 ml Output Urine Total 625 ml 550 ml # Voids 2 # Bowel Movements 1 3 General Appearance: no acute distress HEENT: normocephalic Respiratory: chest wall non-tender, lungs clear Cardiovascular: normal peripheral pulses Abdomen: normal bowel sounds Microbiology Date/Time Source Procedure Growth Status 04/19/20 14:06 Nasopharynx - Final Complete 04/19/20 14:06 Nasopharynx - Final Complete 04/18/20 20:45 Rectal Mucosa Received 04/18/20 20:45 Nasopharynx SARS-CoV-2 RdRp Gene Assay - Final Complete Laboratory Tests 04/19/20 11:08: Urine Color Pale yellow, Urine Appearance Clear, Urine pH 6, Urine Specific [place] 1.015, Urine Protein 3+H, Urine Glucose (UA) 4+H, Urine Ketones Negative, Urine Blood 3+H, Urine Nitrite Negative, Urine Bilirubin Negative, Urine Urobilinogen Normal, Urine Leukocyte Esterase Negative, Urine RBC 2-4H, Urine WBC 0-2, Urine Squamous Epithelial Cells Occasional, Urine Bacteria Occasional, Urine Yeast OccasionalH 04/19/20 11:50: POC Whole Blood Glucose 243H 04/19/20 15:03: Potassium Level 3.0L, Magnesium Level 2.1 04/19/20 16:35: POC Whole Blood Glucose 145H 04/20/20 04:00: White Blood Count 10.5, Red Blood Count 3.80L, Hemoglobin 11.3L, Hematocrit 34.8L, Mean Corpuscular Volume 92, Mean Corpuscular Hemoglobin 29.8, Mean Corpuscular Hemoglobin Concent 32.6, Red Cell Distribution Width 13.2, Platelet Count 132L, Mean Platelet Volume 13.4H, Neutrophils (%) (Auto) 68.5, Lymphocytes (%) (Auto) 23.1, Monocytes (%) (Auto) 6.5, Eosinophils (%) (Auto) 1.4, Basophils (%) (Auto) 0.5, Sodium Level 138, Potassium Level 2.6*L, Chloride Level 104, Carbon Dioxide Level 29, Anion Gap 7, Blood Urea Nitrogen 8, Creatinine 0.8, Estimat Glomerular Filtration Rate > 60, Glucose Level 148#H, Uric Acid 3.1, Calcium Level 8.1L, Phosphorus Level 2.0L, Magnesium Level 1.7L, Total Bilirubin 0.6, Aspartate Amino Transf (AST/SGOT) 23, Alanine Aminotransferase (ALT/SGPT) 38, Alkaline Phosphatase 102, Total Creatine Kinase 287, C-Reactive Protein, Quantitative 4.9H, Pro-B-Type Natriuretic Peptide 533H, Total Protein 6.7, Albumin 2.5L, Globulin 4.2, Albumin/Globulin Ratio 0.6L Current Medications Medications (Trade) Dose Ordered Sig/Kamron Route PRN Reason Start Time Stop Time Status Last Admin Dose Admin Aztreonam 2 gm/ Dextrose 110 ml @ 220 mls/hr Q8HR IVPB 04/19/20 11:00 04/26/20 10:59 04/20/20 05:39 Dextrose (Dextrose 50%) 25 ml Q30M PRN IV Hypoglycemia 04/19/20 07:30 07/18/20 07:29 Dextrose (Dextrose 50%) 50 ml Q30M PRN IV Hypoglycemia 04/19/20 07:30 07/18/20 07:29 Diltiazem HCl (Cardizem) 25 mg Q4HR IVP 04/19/20 01:00 05/19/20 00:59 04/20/20 09:09 Enoxaparin Sodium (Lovenox) 60 mg EVERY 12 HOURS SUBQ 04/19/20 09:00 07/18/20 08:59 04/20/20 09:12 Hydralazine HCl (Apresoline) 25 mg Q6HR ORAL 04/20/20 09:58 07/19/20 09:57 Insulin Aspart (NovoLOG) BEFORE MEALS AND HS SUBQ 04/19/20 11:30 07/18/20 11:29 04/20/20 06:31 Levetiracetam 100 ml @ 400 mls/hr Q12HR IVPB 04/19/20 00:00 07/18/20 00:00 04/20/20 10:11 Lorazepam (Ativan 2mg/ml 1ml) 1 mg Q1H PRN IV For Seizures 04/19/20 00:30 04/26/20 00:29 Nitroglycerin (Nitro-Bid) 1 inch DAILY TOPIC 04/19/20 09:30 05/19/20 09:29 04/20/20 09:26 Pantoprazole (Protonix) 40 mg DAILY IVP 04/19/20 09:00 05/19/20 08:59 04/20/20 09:10 Potassium Chloride 40 meq/ Sodium Chloride 1,020 ml @ 75 mls/hr [id number] IV 04/20/20 09:00 05/20/20 08:59 04/20/20 09:11 Potassium Phosphate 20 mm/ Sodium Chloride 281.6667 ml @ 46.944 m... ONCE ONCE IV 04/20/20 09:00 04/20/20 14:59 04/20/20 09:11 Tramadol HCl (Ultram) 25 mg BID PRN ORAL For Pain 04/19/20 01:45 04/25/20 22:59 Vancomycin HCl (Vanco pharmacy to dose) 1 ea DAILY PRN MISC Per rx protocol 04/19/20 08:45 05/19/20 08:44 Vancomycin HCl 750 mg/Sodium Chloride 275 ml @ 183.333 mls/hr Q12H IVPB 04/19/20 22:00 04/24/20 21:59 04/19/20 22:24 Assessment/Plan Assessment/Plan IMPRESSION: 1. Low suspicion for COVID-19 pneumonia. 2. Recurrent seizures. 3. Medication noncompliance. 4. CVA. 5. [facility] resident. DISCUSSION: Continue medications for seizures. Currently, Keppra would be appropriate 500 mg twice a day. Empiric antibiotics for for 24 hours. DVT prophylaxis. I will follow. Eddie Miller Omar Syed MD Apr 20, 2020 10:46
[2020-04-20] MEDS: Vancomycin 750mg/NS 275ml IVPB SCH ×2 (10:47)
[2020-04-20 12:00] VITALS: BP 172/86
--- NOTE | 2020-04-20 14:31 | Consultation ---
Consult Note Consult Note Asked to evaluate the patient at the request of Dr. Kaplan for fluid and electrolyte management Chief Complaint: Seizure HPI: 64-year-old male history of seizure disorder, CVA, presents for recurrent seizure. Patient apparently has been noncompliant with his medications at his detention facility and had multiple seizures today lasting approximately 1 minute. On EMS arrival patient was actively seizing and given Versed by EMS. Patient does take Keppra. Patient is a full code. Patient was postictal on arrival and could not provide any history. 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 GENERAL: No acute distress, calm, lying in bed. HEENT: EOMs are intact. Nonicteric. NECK: No JVD. No bruit. CHEST: Symmetrical expansion. Crackles at lung bases. Bronchial breath sounds. No wheeze. CARDIOVASCULAR: Rhythmic and regular. S1 and S2. Quiet heart sounds. ABDOMEN: Soft, nondistended, nontender. EXTREMITIES: Somewhat contracted, thin, muscle wasting. No obvious lesion. NEUROLOGIC: Lethargic. Does not respond to a command. Unable to answer questions. LABORATORY AND DIAGNOSTIC DATA: Labs showed WBC of 11,000, hemoglobin of 12.7, platelet count of 197,000; neutrophils of 69. BUN of 14, creatinine of 1.2. AST of 77, alkaline phosphatase of 138. Radiology, chest x-ray showed no infiltration or consolidation. Microbiology screening for COVID-19 came back negative. . Assessment/Plan Electrolyte imbalance Recurrent seizures. Medication noncompliance. CVA. detention resident. Elevated troponin I Sugg: Magnesium, phosphorus, potassium chloride supplement as needed Monitor electrolytes Continue per consultants Reymundo Doyle MD Apr 20, 2020 14:30
--- NOTE | 2020-04-20 14:40 | Infectious Diseases Prog Note ---
Assessment/Plan Problems: (1) Suspected 2019 novel coronavirus infection Assessment & Plan: await PCR test to confirm , place in isolation for now (2) Fever Assessment & Plan: rule out infectious etiology , monitor blood culture x 2 and UA , await COVID 19 PCR test to confirm , continue vancomycin and aztreonam empirically (3) Recurrent seizures Assessment & Plan: reloaded with meds, watch out for breakthrough , neurology eval, aspiration precaution (4) Hypoxemia requiring supplemental oxygen Assessment & Plan: rule out viral etiology with negative CXR for infiltration , await COVID 19 PCR test to confirm, influenza A&B are both negative. keep in isolation, monitor CXR and ABG Subjective ROS Limited/Unobtainable: Yes Allergies: Coded Allergies: No Known Allergies (Unverified , 04/18/20) he was lying in bed lethargic and minimally responsive, had no fever or chills, no cough or shortness of breath and no diarrhea. Objective Last 24 Hour Vital Signs Date Time Temp Pulse Resp B/P (MAP) Pulse Ox O2 Delivery O2 Flow Rate FiO2 04/20/20 13:24 78 163/87 04/20/20 12:00 97.5 87 18 172/86 (114) 100 04/20/20 10:46 175/92 04/20/20 09:26 183/92 04/20/20 09:09 67 183/92 04/20/20 09:00 Nasal Cannula 4.0 04/20/20 08:00 98.8 67 18 183/92 (122) 98 04/20/20 08:00 75 04/20/20 04:55 65 150/82 04/20/20 04:00 98.8 65 20 150/82 (104) 100 04/20/20 04:00 68 04/20/20 01:22 76 145/78 04/20/20 00:00 82 04/20/20 00:00 99.3 76 16 145/78 (100) 99 04/19/20 21:00 82 164/82 04/19/20 21:00 Nasal Cannula 4.0 04/19/20 20:00 99.9 82 20 164/82 (109) 100 04/19/20 17:12 81 165/78 04/19/20 16:00 98.6 81 20 165/78 (107) 98 04/19/20 16:00 90 Height (Feet): 5 Height (Inches): 5.00 Weight (Pounds): 134 General Appearance: WD/WN, no acute distress HEENT: normocephalic, atraumatic, anicteric, mucous membranes moist Respiratory/Chest: chest wall non-tender, lungs clear, normal breath sounds, no respiratory distress, no accessory muscle use Cardiovascular: normal peripheral pulses, normal rate, regular rhythm, no gallop/murmur, no JVD Abdomen: normal bowel sounds, soft, non tender, no organomegaly, non distended, no mass, no scars Genitourinary: normal external genitalia Extremities: no cyanosis, no clubbing Skin: no rash, no lesions, no ulcers Neurologic/Psychiatric: alert Lymphatic: no neck adenopathy, no groin adenopathy Musculoskeletal: normal muscle bulk, no effusion Microbiology Date/Time Source Procedure Growth Status 04/19/20 14:06 Nasopharynx - Final Complete 04/19/20 14:06 Nasopharynx - Final Complete 04/18/20 20:45 Rectal Mucosa Received 04/18/20 20:45 Nasopharynx SARS-CoV-2 RdRp Gene Assay - Final Complete Laboratory Tests Test 04/19/20 15:03 04/19/20 16:35 04/20/20 04:00 04/20/20 11:07 Potassium Level 3.0 MMOL/L (3.5-5.1) L 2.6 MMOL/L (3.5-5.1) *L Magnesium Level 2.1 MG/DL (1.8-2.4) 1.7 MG/DL (1.8-2.4) L POC Whole Blood Glucose 145 MG/DL (74-106) H 187 MG/DL (74-106) H White Blood Count 10.5 K/UL (4.8-10.8) Red Blood Count 3.80 M/UL (4.70-6.10) L Hemoglobin 11.3 G/DL (14.2-18.0) L Hematocrit 34.8 % (42.0-52.0) L Mean Corpuscular Volume 92 FL (80-99) Mean Corpuscular Hemoglobin 29.8 PG (27.0-31.0) Mean Corpuscular Hemoglobin Concent 32.6 G/DL (32.0-36.0) Red Cell Distribution Width 13.2 % (11.6-14.8) Platelet Count 132 K/UL (150-450) L Mean Platelet Volume 13.4 FL (6.5-10.1) H Neutrophils (%) (Auto) 68.5 % (45.0-75.0) Lymphocytes (%) (Auto) 23.1 % (20.0-45.0) Monocytes (%) (Auto) 6.5 % (1.0-10.0) Eosinophils (%) (Auto) 1.4 % (0.0-3.0) Basophils (%) (Auto) 0.5 % (0.0-2.0) Sodium Level 138 MMOL/L (136-145) Chloride Level 104 MMOL/L (98-107) Carbon Dioxide Level 29 MMOL/L (21-32) Anion Gap 7 mmol/L (5-15) Blood Urea Nitrogen 8 mg/dL (7-18) Creatinine 0.8 MG/DL (0.55-1.30) Estimat Glomerular Filtration Rate > 60 mL/min (>60) Glucose Level 148 MG/DL (74-106) #H Uric Acid 3.1 MG/DL (2.6-7.2) Calcium Level 8.1 MG/DL (8.5-10.1) L Phosphorus Level 2.0 MG/DL (2.5-4.9) L Total Bilirubin 0.6 MG/DL (0.2-1.0) Aspartate Amino Transf (AST/SGOT) 23 U/L (15-37) Alanine Aminotransferase (ALT/SGPT) 38 U/L (12-78) Alkaline Phosphatase 102 U/L (46-116) Total Creatine Kinase 287 U/L (26-308) C-Reactive Protein, Quantitative 4.9 mg/dL (0.00-0.90) H Pro-B-Type Natriuretic Peptide 533 pg/mL (0-125) H Total Protein 6.7 G/DL (6.4-8.2) Albumin 2.5 G/DL (3.4-5.0) L Globulin 4.2 g/dL Albumin/Globulin Ratio 0.6 (1.0-2.7) L Current Medications Medications (Trade) Dose Ordered Sig/Kamron Route PRN Reason Start Time Stop Time Status Last Admin Dose Admin Aztreonam 2 gm/ Dextrose 110 ml @ 220 mls/hr Q8HR IVPB 04/19/20 11:00 04/26/20 10:59 04/20/20 05:39 Dextrose (Dextrose 50%) 25 ml Q30M PRN IV Hypoglycemia 04/19/20 07:30 07/18/20 07:29 Dextrose (Dextrose 50%) 50 ml Q30M PRN IV Hypoglycemia 04/19/20 07:30 07/18/20 07:29 Diltiazem HCl (Cardizem) 25 mg Q4HR IVP 04/19/20 01:00 05/19/20 00:59 04/20/20 13:24 Enoxaparin Sodium (Lovenox) 60 mg EVERY 12 HOURS SUBQ 04/19/20 09:00 07/18/20 08:59 04/20/20 09:12 Hydralazine HCl (Apresoline) 25 mg Q6HR ORAL 04/20/20 09:58 07/19/20 09:57 04/20/20 10:46 Insulin Aspart (NovoLOG) BEFORE MEALS AND HS SUBQ 04/19/20 11:30 07/18/20 11:29 04/20/20 13:14 Levetiracetam 100 ml @ 400 mls/hr Q12HR IVPB 04/19/20 00:00 07/18/20 00:00 04/20/20 10:11 Lorazepam (Ativan 2mg/ml 1ml) 1 mg Q1H PRN IV For Seizures 04/19/20 00:30 04/26/20 00:29 Nitroglycerin (Nitro-Bid) 1 inch DAILY TOPIC 04/19/20 09:30 05/19/20 09:29 04/20/20 09:26 Pantoprazole (Protonix) 40 mg DAILY IVP 04/19/20 09:00 05/19/20 08:59 04/20/20 09:10 Potassium Chloride 40 meq/ Sodium Chloride 1,020 ml @ 75 mls/hr [id number] IV 04/20/20 09:00 05/20/20 08:59 04/20/20 09:11 Potassium Phosphate 20 mm/ Sodium Chloride 281.6667 ml @ 46.944 m... ONCE ONCE IV 04/20/20 09:00 04/20/20 14:59 04/20/20 09:11 Tramadol HCl (Ultram) 25 mg BID PRN ORAL For Pain 04/19/20 01:45 04/25/20 22:59 Vancomycin HCl (Vanco pharmacy to dose) 1 ea DAILY PRN MISC Per rx protocol 04/19/20 08:45 05/19/20 08:44 Vancomycin HCl 750 mg/Sodium Chloride 275 ml @ 183.333 mls/hr Q12H IVPB 04/19/20 22:00 04/24/20 21:59 04/20/20 10:47 Hermann Blue M.D. Apr 20, 2020 14:40
[2020-04-20 16:00] VITALS: BP 161/88
[2020-04-20] MEDS: HydrALAZINE 50mg tab ORAL SCH ×2 (17:26→22:14)
--- NOTE | 2020-04-20 19:15 | Progress Note 2 Sig ---
DATE: 04/20/2020 INTERVENTIONAL CARDIOLOGY PROGRESS NOTE SUPERVISING PHYSICIAN: Andrez Ojeda MD REFERRING PHYSICIAN: David Kaplan MD HISTORY OF PRESENT ILLNESS: A 64-year-old male, originally admitted for recurrent seizures, hypertension, and atrial fibrillation with RVR. Currently rate controlled after IV Cardizem, now on beta-thomas. Afebrile. No acute events. REVIEW OF SYSTEMS: Unable to provide. LABORATORY REVIEW: Potassium 2.6, creatinine 0.8, magnesium 1.7. BNP 533. WBC 10.5, hemoglobin 11.3. IMAGING REVIEW: Echocardiogram ejection fraction 60%. PHYSICAL EXAMINATION: VITAL SIGNS: Blood pressure 163/87, respiratory rate 18, heart rate 78. GENERAL: No acute distress, clam, lying in bed. HEENT: EOMs intact. Sclerae anicteric. NECK: No JVD. No bruit. CHEST: Symmetrical expansion. Bronchial breath sounds. Shallow inspiration. CARDIOVASCULAR: Irregularly irregular rhythm. S1, S2. No significant murmur on auscultation. ABDOMEN: Soft, nondistended. EXTREMITIES: Upper extremities not contracted. Lower extremities, mild dependent edema bilaterally. No lesion. NEUROLOGIC: Unable to answer questions. ASSESSMENT AND PLAN: 1. AFib/AFlutter with RVR, in and out of sinus rhythm after IV diltiazem. 2. Hypertension and hypertensive urgency, on multiple antihypertensives. 3. Seizure disorder with recent seizure activity. 4. Diabetes mellitus type 2. 5. Hypokalemia. 6. Hypomagnesemia. 7. Congestive heart failure, acute on chronic diastolic heart failure with preserved ejection fraction. EF 60%. BNP elevated, diuresis with IV Lasix. RECOMMENDATION: Echocardiogram shows well-preserved left ventricular function. EF 60%, continue diuresis to help alleviate fluid overload. Patient in and out of sinus rhythm. Started on beta-thomas for rate and rhythm control. Antihypertensive regimen adjusted, magnesium and potassium will be replaced. Further recommendations to follow. The above assessment and plan was discussed with Dr. Ojeda who agrees with the above as outlined. Andrez Ojeda MD Larissa Tavares PA-C DR: SIMONA JOB#: [id number] CC:
[2020-04-20 20:00] VITALS: BP 155/77
[2020-04-20] MEDS ORDERED: Vancomycin 1gm/D5W 275ml IVPB SCH ×2 (22:00)
[2020-04-20] MEDS: Vancomycin 1 GM in NS 275 ML IVPB SCH (22:05)
[2020-04-21] VITALS: BP 127/61
[2020-04-21] MEDS: Potassium Chloride 40 MEQ in 1/2 NS 1000ml 1,000 ML IV SCH ×2 (00:02→12:28)
[2020-04-21] MEDS: dilTIAZem HCl 25mg/5ml Inj IVP SCH ×6 (01:07→21:26)
[2020-04-21 04:00] VITALS: BP 141/74
[2020-04-21 04:10] LABS: HEMATOCRIT 36.7 % (42.0-52.0); HEMOGLOBIN 12.1 G/DL (14.2-18.0); LYMPHOCYTES % (AUTO) 18.3 % (20.0-45.0); MEAN CORPUSCULAR VOLUME 93 FL (80-99); MONOCYTES % (AUTO) 7.9 % (1.0-10.0); NEUTROPHILS % (AUTO) 70.9 % (45.0-75.0); PLATELET COUNT 202 K/UL (150-450); RED BLOOD COUNT 3.96 M/UL (4.70-6.10); RED CELL DISTRIBUTION WIDTH 12.9 % (11.6-14.8); WHITE BLOOD COUNT 10.3 K/UL (4.8-10.8)
[2020-04-21 04:24] LABS: GAMMA GLUTAMYL TRANSPEPTIDASE 17 U/L (5-85)
[2020-04-21 04:31] LABS: % IRON SATURATION 16 % (15-50); IRON 31 ug/dL (50-175); TOTAL IRON BINDING CAPACITY 194 ug/dL (250-450)
[2020-04-21 04:39] LABS: ALANINE AMINOTRANSFERASE 27 U/L (12-78); ALBUMIN 2.4 G/DL (3.4-5.0); ALBUMIN/GLOBULIN RATIO 0.6 (1.0-2.7); ALKALINE PHOSPHATASE 94 U/L (46-116); ANION GAP 7 mmol/L (5-15); ASPARTATE AMINO TRANSFERASE 18 U/L (15-37); BILIRUBIN,TOTAL 0.6 MG/DL (0.2-1.0); BLOOD UREA NITROGEN 10 mg/dL (7-18); CALCIUM 8.2 MG/DL (8.5-10.1); CARBON DIOXIDE 25 MMOL/L (21-32); CHLORIDE 104 MMOL/L (98-107); CREATININE 0.8 MG/DL (0.55-1.30); FERRITIN 228 NG/ML (8-388); PHOSPHORUS 2.2 MG/DL (2.5-4.9); POTASSIUM 3.3 MMOL/L (3.5-5.1); SODIUM 136 MMOL/L (136-145)
[2020-04-21] MEDS: Spironolactone 25mg tab ORAL SCH (05:59)
[2020-04-21] MEDS: HydrALAZINE 50mg tab ORAL SCH ×3 (05:59→22:22)
[2020-04-21] MEDS: Aztreonam Inj 2 GM in D5W 110 ML IVPB SCH ×3 (06:00→22:20)
[2020-04-21] MEDS: NovoLOG Insulin Flexpen SUBQ SCH ×4 (06:03→22:22)
[2020-04-21 08:00] VITALS: BP 163/75
[2020-04-21] MEDS ORDERED: VITAMIN A & D113 GM TP (09:06)
[2020-04-21] MEDS ORDERED: ACETAMINOPHEN325 M1 ORAL (09:06)
[2020-04-21] MEDS ORDERED: ZINC OXIDE56.7 G1 TP (09:19)
[2020-04-21] MEDS ORDERED: GLUCOSE SHOT ORAL (09:19)
[2020-04-21] MEDS ORDERED: POVIDONE IODIN TP (09:19)
[2020-04-21] MEDS ORDERED: PRO-STAT LIQUID30 ML ORAL (09:19)
[2020-04-21] MEDS: Enoxaparin 60mg Inj SUBQ SCH ×2 (09:28→21:27)
[2020-04-21] MEDS: Vancomycin 1 GM in NS 275 ML IVPB SCH ×2 (09:29→22:21)
[2020-04-21] MEDS: Pantoprazole Inj IVP SCH (09:29)
[2020-04-21] MEDS: levETIRAcetam 500mg/NS100ml 100 ML IVPB SCH ×2 (09:30→21:26)
[2020-04-21] MEDS: Nitroglycerin 2% oint pkt TOPIC SCH (09:30)
[2020-04-21] MEDS: Potassium Phosphate 15mm/250ml 250 ML IVPB SCH ×2 (09:33→14:03)
--- NOTE | 2020-04-21 10:57 | Pulmonology Progress Note ---
Subjective ROS Limited/Unobtainable: Yes Interval Events: None new Constitutional: Reports: no symptoms HEENT: Repors: no symptoms Respiratory: Reports: no symptoms Cardiovascular: Reports: no symptoms Gastrointestinal/Abdominal: Reports: no symptoms Allergies: Coded Allergies: No Known Allergies (Unverified , 04/18/20) Objective Last 24 Hour Vital Signs Date Time Temp Pulse Resp B/P (MAP) Pulse Ox O2 Delivery O2 Flow Rate FiO2 04/21/20 09:30 94 163/75 04/21/20 09:30 163/75 04/21/20 09:28 94 163/75 04/21/20 08:00 99.0 94 20 163/75 (104) 96 04/21/20 05:59 135/69 04/21/20 05:06 76 141/74 04/21/20 04:00 76 04/21/20 04:00 98.6 76 17 141/74 (96) 97 04/21/20 01:07 77 144/66 04/21/20 00:00 76 04/21/20 00:00 98.8 77 18 127/61 (83) 96 04/20/20 22:14 147/80 04/20/20 21:00 Nasal Cannula 3.0 04/20/20 20:25 99 151/77 04/20/20 20:24 99 151/75 04/20/20 20:00 105 04/20/20 20:00 100.2 99 19 155/77 (103) 98 04/20/20 17:26 161/88 04/20/20 17:24 81 161/88 04/20/20 16:00 81 04/20/20 16:00 99.1 81 16 161/88 (112) 96 04/20/20 13:24 78 163/87 04/20/20 12:00 97.5 87 18 172/86 (114) 100 04/20/20 12:00 110 Intake and Output 04/20/20 04/21/20 19:00 07:00 Intake Total 1774.1667 ml 375 ml Output Total 1200 ml 300 ml Balance 574.1667 ml 75 ml Intake IV Total 1774.1667 ml 375 ml Output Urine Total 1200 ml 300 ml # Voids 1 # Bowel Movements 1 General Appearance: no acute distress HEENT: normocephalic Respiratory: chest wall non-tender, lungs clear Cardiovascular: normal peripheral pulses Abdomen: normal bowel sounds Microbiology Date/Time Source Procedure Growth Status 04/19/20 14:06 Nasopharynx - Final Complete 04/19/20 14:06 Nasopharynx - Final Complete 04/19/20 11:08 Urine,Clean Catch Urine Culture - Preliminary Gram Negative Pasquale Resulted 04/18/20 20:45 Rectum - Final NO CARBAPENEM-RESISTANT ENTEROBACTERI... Complete 04/18/20 20:45 Rectal Mucosa VRE Culture - Final Enterococcus Faecalis - Vre Complete 04/18/20 20:45 Nasopharynx SARS-CoV-2 RdRp Gene Assay - Final Complete Laboratory Tests 04/20/20 11:07: POC Whole Blood Glucose 187H 04/20/20 16:21: POC Whole Blood Glucose 151H 04/20/20 20:19: POC Whole Blood Glucose [Pending] 04/20/20 20:53: Magnesium Level 2.0, Troponin I 0.823H, Pro-B-Type Natriuretic Peptide 583H, Vancomycin Level Trough 12.8H 04/21/20 04:00: White Blood Count 10.3, Red Blood Count 3.96L, Hemoglobin 12.1L, Hematocrit 36.7L, Mean Corpuscular Volume 93, Mean Corpuscular Hemoglobin 30.5, Mean Corpuscular Hemoglobin Concent 32.9, Red Cell Distribution Width 12.9, Platelet Count 202#, Mean Platelet Volume 12.1H, Neutrophils (%) (Auto) 70.9, Lymphocytes (%) (Auto) 18.3L, Monocytes (%) (Auto) 7.9, Eosinophils (%) (Auto) 2.0, Basophils (%) (Auto) 1.0, Sodium Level 136, Potassium Level 3.3L, Chloride Level 104, Carbon Dioxide Level 25, Anion Gap 7, Blood Urea Nitrogen 10, Creatinine 0.8, Estimat Glomerular Filtration Rate > 60, Glucose Level 166H, Uric Acid 3.2, Calcium Level 8.2L, Phosphorus Level 2.2L, Magnesium Level 1.9, Iron Level 31L, Total Iron Binding Capacity 194L, Percent Iron Saturation 16, Unsaturated Iron Binding 163, Ferritin 228, Total Bilirubin 0.6, Gamma Glutamyl Transpeptidase 17, Aspartate Amino Transf (AST/SGOT) 18, Alanine Aminotransferase (ALT/SGPT) 27, Alkaline Phosphatase 94, C-Reactive Protein, Quantitative 4.8H, Pro-B-Type Natriuretic Peptide 683H, Total Protein 6.7, Albumin 2.4L, Globulin 4.3, Albumin/Globulin Ratio 0.6L, Vitamin B12 Level 433, Folate 3.6L 04/21/20 06:01: POC Whole Blood Glucose 164H Current Medications Medications (Trade) Dose Ordered Sig/Kamron Route PRN Reason Start Time Stop Time Status Last Admin Dose Admin Aztreonam 2 gm/ Dextrose 110 ml @ 220 mls/hr Q8HR IVPB 04/19/20 11:00 04/26/20 10:59 04/21/20 06:00 Dextrose (Dextrose 50%) 25 ml Q30M PRN IV Hypoglycemia 04/19/20 07:30 07/18/20 07:29 Dextrose (Dextrose 50%) 50 ml Q30M PRN IV Hypoglycemia 04/19/20 07:30 07/18/20 07:29 Diltiazem HCl (Cardizem) 25 mg Q4HR IVP 04/19/20 01:00 05/19/20 00:59 04/21/20 09:28 Enoxaparin Sodium (Lovenox) 60 mg EVERY 12 HOURS SUBQ 04/19/20 09:00 07/18/20 08:59 04/21/20 09:28 Folic Acid (Folate) 3 mg DAILY ORAL 04/21/20 09:00 05/21/20 08:59 04/21/20 09:28 Hydralazine HCl (Apresoline) 50 mg Q8HR ORAL 04/20/20 16:48 07/19/20 16:47 04/21/20 05:59 Insulin Aspart (NovoLOG) BEFORE MEALS AND HS SUBQ 04/19/20 11:30 07/18/20 11:29 04/21/20 06:03 Levetiracetam 100 ml @ 400 mls/hr Q12HR IVPB 04/19/20 00:00 07/18/20 00:00 04/21/20 09:30 Lorazepam (Ativan 2mg/ml 1ml) 1 mg Q1H PRN IV For Seizures 04/19/20 00:30 04/26/20 00:29 Metoprolol Tartrate (Lopressor) 25 mg Q12HR ORAL 04/20/20 21:00 07/19/20 20:59 04/21/20 09:30 Nitroglycerin (Nitro-Bid) 1 inch DAILY TOPIC 04/19/20 09:30 05/19/20 09:29 04/21/20 09:30 Pantoprazole (Protonix) 40 mg DAILY IVP 04/19/20 09:00 05/19/20 08:59 04/21/20 09:29 Potassium Chloride 40 meq/ Sodium Chloride 1,020 ml @ 75 mls/hr [id number] IV 04/20/20 09:00 05/20/20 08:59 04/21/20 00:02 Potassium Phosphate 250 ml @ 62.5 mls/hr Q4H IVPB 04/21/20 09:00 04/21/20 16:59 04/21/20 09:33 Spironolactone (Aldactone) 25 mg BEFORE BREAKFAST ORAL 04/21/20 06:30 05/21/20 06:29 04/21/20 05:59 Tramadol HCl (Ultram) 25 mg BID PRN ORAL For Pain 04/19/20 01:45 04/25/20 22:59 Vancomycin HCl ([facility] pharmacy to dose) 1 ea DAILY PRN MISC Per rx protocol 04/19/20 08:45 05/19/20 08:44 Vancomycin HCl 1 gm/Sodium Chloride 275 ml @ 183.708 mls/hr Q12HR@1000,2200 IVPB 04/20/20 22:00 04/25/20 21:59 04/21/20 09:29 Assessment/Plan Assessment/Plan IMPRESSION: 1. Negative COVID-19 pneumonia. 2. Recurrent seizures. 3. Medication noncompliance. 4. CVA. 5. skilled nursing resident. DISCUSSION: Continue medications for seizures. Currently, Keppra would be appropriate 500 mg twice a day. DVT prophylaxis. I will follow. Eddie Miller Omar Syed MD Apr 21, 2020 10:57
[2020-04-21 12:00] VITALS: BP 156/72
--- NOTE | 2020-04-21 13:24 | Nephrology Progress Note ---
Assessment/Plan Problem List: (1) Hypokalemia (2) Suspected 2019 novel coronavirus infection (3) Recurrent seizures (4) Elevated troponin I level Assessment Electrolyte imbalance Recurrent seizures. Medication noncompliance. CVA. [facility] resident. Elevated troponin I Plan Add Zestril for better BP control. Reviewed blood pressure medications. Magnesium, phosphorus, potassium chloride supplement as needed Monitor electrolytes Continue per consultants Subjective ROS Limited/Unobtainable: No Constitutional: Reports: malaise, weakness Objective Objective Last 24 Hour Vital Signs Date Time Temp Pulse Resp B/P (MAP) Pulse Ox O2 Delivery O2 Flow Rate FiO2 04/21/20 12:30 75 04/21/20 12:14 73 156/72 04/21/20 12:00 98.8 73 18 156/72 (100) 97 04/21/20 09:30 94 163/75 04/21/20 09:30 163/75 04/21/20 09:28 94 163/75 04/21/20 09:00 Nasal Cannula 3.0 04/21/20 08:00 99.0 94 20 163/75 (104) 96 04/21/20 07:45 89 04/21/20 05:59 135/69 04/21/20 05:06 76 141/74 04/21/20 04:00 76 04/21/20 04:00 98.6 76 17 141/74 (96) 97 04/21/20 01:07 77 144/66 04/21/20 00:00 76 04/21/20 00:00 98.8 77 18 127/61 (83) 96 04/20/20 22:14 147/80 04/20/20 21:00 Nasal Cannula 3.0 04/20/20 20:25 99 151/77 04/20/20 20:24 99 151/75 04/20/20 20:00 105 04/20/20 20:00 100.2 99 19 155/77 (103) 98 04/20/20 17:26 161/88 04/20/20 17:24 81 161/88 04/20/20 16:00 81 04/20/20 16:00 99.1 81 16 161/88 (112) 96 04/20/20 13:24 78 163/87 Intake and Output 04/20/20 04/21/20 19:00 07:00 Intake Total 1774.1667 ml 450 ml Output Total 1200 ml 300 ml Balance 574.1667 ml 150 ml Intake IV Total 1774.1667 ml 450 ml Output Urine Total 1200 ml 300 ml # Voids 1 # Bowel Movements 1 Current Medications Medications (Trade) Dose Ordered Sig/Kamron Route PRN Reason Start Time Stop Time Status Last Admin Dose Admin Aztreonam 2 gm/ Dextrose 110 ml @ 220 mls/hr Q8HR IVPB 04/19/20 11:00 04/26/20 10:59 04/21/20 06:00 Dextrose (Dextrose 50%) 25 ml Q30M PRN IV Hypoglycemia 04/19/20 07:30 07/18/20 07:29 Dextrose (Dextrose 50%) 50 ml Q30M PRN IV Hypoglycemia 04/19/20 07:30 07/18/20 07:29 Diltiazem HCl (Cardizem) 25 mg Q4HR IVP 04/19/20 01:00 05/19/20 00:59 04/21/20 12:14 Enoxaparin Sodium (Lovenox) 60 mg EVERY 12 HOURS SUBQ 04/19/20 09:00 07/18/20 08:59 04/21/20 09:28 Folic Acid (Folate) 3 mg DAILY ORAL 04/21/20 09:00 05/21/20 08:59 04/21/20 09:28 Hydralazine HCl (Apresoline) 50 mg Q8HR ORAL 04/20/20 16:48 07/19/20 16:47 04/21/20 05:59 Insulin Aspart (NovoLOG) BEFORE MEALS AND HS SUBQ 04/19/20 11:30 07/18/20 11:29 04/21/20 11:57 Levetiracetam 100 ml @ 400 mls/hr Q12HR IVPB 04/19/20 00:00 07/18/20 00:00 04/21/20 09:30 Lorazepam (Ativan 2mg/ml 1ml) 1 mg Q1H PRN IV For Seizures 04/19/20 00:30 04/26/20 00:29 Metoprolol Tartrate (Lopressor) 25 mg Q12HR ORAL 04/20/20 21:00 07/19/20 20:59 04/21/20 09:30 Nitroglycerin (Nitro-Bid) 1 inch DAILY TOPIC 04/19/20 09:30 05/19/20 09:29 04/21/20 09:30 Pantoprazole (Protonix) 40 mg DAILY IVP 04/19/20 09:00 05/19/20 08:59 04/21/20 09:29 Potassium Chloride 40 meq/ Sodium Chloride 1,020 ml @ 75 mls/hr [id number] IV 04/20/20 09:00 05/20/20 08:59 04/21/20 12:28 Potassium Phosphate 250 ml @ 62.5 mls/hr Q4H IVPB 04/21/20 09:00 04/21/20 16:59 04/21/20 09:33 Spironolactone (Aldactone) 25 mg BEFORE BREAKFAST ORAL 04/21/20 06:30 05/21/20 06:29 04/21/20 05:59 Tramadol HCl (Ultram) 25 mg BID PRN ORAL For Pain 04/19/20 01:45 04/25/20 22:59 Vancomycin HCl ([facility] pharmacy to dose) 1 ea DAILY PRN MISC Per rx protocol 04/19/20 08:45 05/19/20 08:44 Vancomycin HCl 1 gm/Sodium Chloride 275 ml @ 183.708 mls/hr Q12HR@1000,2200 IVPB 04/20/20 22:00 04/25/20 21:59 04/21/20 09:29 Laboratory Tests 04/20/20 16:21: POC Whole Blood Glucose 151H 04/20/20 20:19: POC Whole Blood Glucose [Pending] 04/20/20 20:53: Magnesium Level 2.0, Troponin I 0.823H, Pro-B-Type Natriuretic Peptide 583H, Vancomycin Level Trough 12.8H 04/21/20 04:00: Magnesium Level 1.9, Pro-B-Type Natriuretic Peptide 683H, White Blood Count 10.3, Red Blood Count 3.96L, Hemoglobin 12.1L, Hematocrit 36.7L, Mean Corpuscular Volume 93, Mean Corpuscular Hemoglobin 30.5, Mean Corpuscular Hemoglobin Concent 32.9, Red Cell Distribution Width 12.9, Platelet Count 202#, Mean Platelet Volume 12.1H, Neutrophils (%) (Auto) 70.9, Lymphocytes (%) (Auto) 18.3L, Monocytes (%) (Auto) 7.9, Eosinophils (%) (Auto) 2.0, Basophils (%) (Auto) 1.0, Sodium Level 136, Potassium Level 3.3L, Chloride Level 104, Carbon D ioxide Level 25, Anion Gap 7, Blood Urea Nitrogen 10, Creatinine 0.8, Estimat Glomerular Filtration Rate > 60, Glucose Level 166H, Uric Acid 3.2, Calcium Level 8.2L, Phosphorus Level 2.2L, Iron Level 31L, Total Iron Binding Capacity 194L, Percent Iron Saturation 16, Unsaturated Iron Binding 163, Ferritin 228, Total Bilirubin 0.6, Gamma Glutamyl Transpeptidase 17, Aspartate Amino Transf (AST/SGOT) 18, Alanine Aminotransferase (ALT/SGPT) 27, Alkaline Phosphatase 94, C-Reactive Protein, Quantitative 4.8H, Total Protein 6.7, Albumin 2.4L, Globulin 4.3, Albumin/Globulin Ratio 0.6L, Vitamin B12 Level 433, Folate 3.6L 04/21/20 06:01: POC Whole Blood Glucose 164H 04/21/20 11:13: POC Whole Blood Glucose 171H Height (Feet): 5 Height (Inches): 5.00 Weight (Pounds): 134 General Appearance: no apparent distress, lethargic Cardiovascular: normal rate Respiratory/Chest: decreased breath sounds Abdomen: soft Reymundo Doyle MD Apr 21, 2020 13:23
[2020-04-21] MEDS: Lisinopril 2.5mg tab ORAL SCH (14:02)
--- NOTE | 2020-04-21 14:47 | Infectious Diseases Prog Note ---
Assessment/Plan Problems: (1) Suspected 2019 novel coronavirus infection Assessment & Plan: await PCR test to confirm , keep in isolation for now (2) Fever Assessment & Plan: rule out infectious etiology , monitor blood culture x 2 and UA , await COVID 19 PCR test to confirm , continue vancomycin and aztreonam empirically (3) Recurrent seizures Assessment & Plan: reloaded with meds, watch out for breakthrough , neurology eval, aspiration precaution (4) Hypoxemia requiring supplemental oxygen Assessment & Plan: rule out viral etiology with negative CXR for infiltration , await COVID 19 PCR test to confirm, influenza A&B are both negative. keep in isolation, monitor CXR and ABG (5) Pseudomonas urinary tract infection Assessment & Plan: already on aztreonam Subjective ROS Limited/Unobtainable: Yes Allergies: Coded Allergies: No Known Allergies (Unverified , 04/18/20) he was lying in bed lethargic and minimally responsive, had no fever or chills, no cough or shortness of breath and no diarrhea. Objective Last 24 Hour Vital Signs Date Time Temp Pulse Resp B/P (MAP) Pulse Ox O2 Delivery O2 Flow Rate FiO2 04/21/20 14:02 156/72 04/21/20 14:02 156/72 04/21/20 12:30 75 04/21/20 12:14 73 156/72 04/21/20 12:00 98.8 73 18 156/72 (100) 97 04/21/20 09:30 94 163/75 04/21/20 09:30 163/75 04/21/20 09:28 94 163/75 04/21/20 09:00 Nasal Cannula 3.0 04/21/20 08:00 99.0 94 20 163/75 (104) 96 04/21/20 07:45 89 04/21/20 05:59 135/69 04/21/20 05:06 76 141/74 04/21/20 04:00 76 04/21/20 04:00 98.6 76 17 141/74 (96) 97 04/21/20 01:07 77 144/66 04/21/20 00:00 76 04/21/20 00:00 98.8 77 18 127/61 (83) 96 04/20/20 22:14 147/80 04/20/20 21:00 Nasal Cannula 3.0 04/20/20 20:25 99 151/77 04/20/20 20:24 99 151/75 04/20/20 20:00 105 04/20/20 20:00 100.2 99 19 155/77 (103) 98 04/20/20 17:26 161/88 04/20/20 17:24 81 161/88 04/20/20 16:00 81 04/20/20 16:00 99.1 81 16 161/88 (112) 96 Height (Feet): 5 Height (Inches): 5.00 Weight (Pounds): 134 General Appearance: WD/WN, no acute distress HEENT: normocephalic, atraumatic, anicteric, mucous membranes moist, PERRL Respiratory/Chest: chest wall non-tender, lungs clear, normal breath sounds, no respiratory distress, no accessory muscle use Cardiovascular: normal peripheral pulses, normal rate, regular rhythm, no gallop/murmur, no JVD Abdomen: normal bowel sounds, soft, non tender, no organomegaly, non distended, no mass, no scars Extremities: no cyanosis, no clubbing Skin: no rash, no lesions, no ulcers 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 Complete 04/18/20 20:45 Rectal Mucosa VRE Culture - Final Enterococcus Faecalis - Vre Complete 04/18/20 20:45 Nasal Nares MRSA Culture - Final NO METHICILLIN RESISTANT STAPH AUREUS... Complete 04/18/20 20:45 Nasopharynx SARS-CoV-2 RdRp Gene Assay - Final Complete Laboratory Tests Test 04/20/20 16:21 04/20/20 20:19 04/20/20 20:53 04/21/20 04:00 POC Whole Blood Glucose 151 MG/DL (74-106) H Pending Magnesium Level 2.0 MG/DL (1.8-2.4) 1.9 MG/DL (1.8-2.4) Troponin I 0.823 ng/mL (0.000-0.056) Pro-B-Type Natriuretic Peptide 583 pg/mL (0-125) H 683 pg/mL (0-125) H Vancomycin Level Trough 12.8 ug/mL (5.0-12.0) H White Blood Count 10.3 K/UL (4.8-10.8) Red Blood Count 3.96 M/UL (4.70-6.10) L Hemoglobin 12.1 G/DL (14.2-18.0) L Hematocrit 36.7 % (42.0-52.0) L Mean Corpuscular Volume 93 FL (80-99) Mean Corpuscular Hemoglobin 30.5 PG (27.0-31.0) Mean Corpuscular Hemoglobin Concent 32.9 G/DL (32.0-36.0) Red Cell Distribution Width 12.9 % (11.6-14.8) Platelet Count 202 K/UL (150-450) # Mean Platelet Volume 12.1 FL (6.5-10.1) H Neutrophils (%) (Auto) 70.9 % (45.0-75.0) Lymphocytes (%) (Auto) 18.3 % (20.0-45.0) L Monocytes (%) (Auto) 7.9 % (1.0-10.0) Eosinophils (%) (Auto) 2.0 % (0.0-3.0) Basophils (%) (Auto) 1.0 % (0.0-2.0) Sodium Level 136 MMOL/L (136-145) Potassium Level 3.3 MMOL/L (3.5-5.1) L Chloride Level 104 MMOL/L (98-107) Carbon Dioxide Level 25 MMOL/L (21-32) Anion Gap 7 mmol/L (5-15) Blood Urea Nitrogen 10 mg/dL (7-18) Creatinine 0.8 MG/DL (0.55-1.30) Estimat Glomerular Filtration Rate > 60 mL/min (>60) Glucose Level 166 MG/DL (74-106) H Uric Acid 3.2 MG/DL (2.6-7.2) Calcium Level 8.2 MG/DL (8.5-10.1) L Phosphorus Level 2.2 MG/DL (2.5-4.9) L Iron Level 31 ug/dL (50-175) L Total Iron Binding Capacity 194 ug/dL (250-450) L Percent Iron Saturation 16 % (15-50) Unsaturated Iron Binding 163 ug/dL (112-346) Ferritin 228 NG/ML (8-388) Total Bilirubin 0.6 MG/DL (0.2-1.0) Gamma Glutamyl Transpeptidase 17 U/L (5-85) Aspartate Amino Transf (AST/SGOT) 18 U/L (15-37) Alanine Aminotransferase (ALT/SGPT) 27 U/L (12-78) Alkaline Phosphatase 94 U/L (46-116) C-Reactive Protein, Quantitative 4.8 mg/dL (0.00-0.90) H Total Protein 6.7 G/DL (6.4-8.2) Albumin 2.4 G/DL (3.4-5.0) L Globulin 4.3 g/dL Albumin/Globulin Ratio 0.6 (1.0-2.7) L Vitamin B12 Level 433 PG/ML (193-986) Folate 3.6 NG/ML (8.6-58.9) L Test 04/21/20 06:01 04/21/20 11:13 POC Whole Blood Glucose 164 MG/DL (74-106) H 171 MG/DL (74-106) H Current Medications Medications (Trade) Dose Ordered Sig/Kamron Route PRN Reason Start Time Stop Time Status Last Admin Dose Admin Aztreonam 2 gm/ Dextrose 110 ml @ 220 mls/hr Q8HR IVPB 04/19/20 11:00 04/26/20 10:59 04/21/20 14:03 Dextrose (Dextrose 50%) 25 ml Q30M PRN IV Hypoglycemia 04/19/20 07:30 07/18/20 07:29 Dextrose (Dextrose 50%) 50 ml Q30M PRN IV Hypoglycemia 04/19/20 07:30 07/18/20 07:29 Diltiazem HCl (Cardizem) 25 mg Q4HR IVP 04/19/20 01:00 05/19/20 00:59 04/21/20 12:14 Enoxaparin Sodium (Lovenox) 60 mg EVERY 12 HOURS SUBQ 04/19/20 09:00 07/18/20 08:59 04/21/20 09:28 Folic Acid (Folate) 3 mg DAILY ORAL 04/21/20 09:00 05/21/20 08:59 04/21/20 09:28 Hydralazine HCl (Apresoline) 50 mg Q8HR ORAL 04/20/20 16:48 07/19/20 16:47 04/21/20 14:02 Insulin Aspart (NovoLOG) BEFORE MEALS AND HS SUBQ 04/19/20 11:30 07/18/20 11:29 04/21/20 11:57 Levetiracetam 100 ml @ 400 mls/hr Q12HR IVPB 04/19/20 00:00 07/18/20 00:00 04/21/20 09:30 Lisinopril (ZestriL) 2.5 mg DAILY ORAL 04/21/20 13:30 05/21/20 13:29 04/21/20 14:02 Lorazepam (Ativan 2mg/ml 1ml) 1 mg Q1H PRN IV For Seizures 04/19/20 00:30 04/26/20 00:29 Metoprolol Tartrate (Lopressor) 25 mg Q12HR ORAL 04/20/20 21:00 07/19/20 20:59 04/21/20 09:30 Nitroglycerin (Nitro-Bid) 1 inch DAILY TOPIC 04/19/20 09:30 05/19/20 09:29 04/21/20 09:30 Pantoprazole (Protonix) 40 mg DAILY IVP 04/19/20 09:00 05/19/20 08:59 04/21/20 09:29 Potassium Chloride 40 meq/ Sodium Chloride 1,020 ml @ 75 mls/hr [id number] IV 04/20/20 09:00 05/20/20 08:59 04/21/20 12:28 Potassium Phosphate 250 ml @ 62.5 mls/hr Q4H IVPB 04/21/20 09:00 04/21/20 16:59 04/21/20 14:03 Spironolactone (Aldactone) 25 mg BEFORE BREAKFAST ORAL 04/21/20 06:30 05/21/20 06:29 04/21/20 05:59 Tramadol HCl (Ultram) 25 mg BID PRN ORAL For Pain 04/19/20 01:45 04/25/20 22:59 Vancomycin HCl ([facility] pharmacy to dose) 1 ea DAILY PRN MISC Per rx protocol 04/19/20 08:45 05/19/20 08:44 Vancomycin HCl 1 gm/Sodium Chloride 275 ml @ 183.708 mls/hr Q12HR@1000,2200 IVPB 04/20/20 22:00 04/25/20 21:59 04/21/20 09:29 Hermann Blue M.D. Apr 21, 2020 14:47
[2020-04-21 16:00] VITALS: BP 145/70
--- NOTE | 2020-04-21 16:10 | General Progress Note ---
Subjective Allergies: Coded Allergies: No Known Allergies (Unverified , 04/18/20) Objective Last 24 Hour Vital Signs Date Time Temp Pulse Resp B/P (MAP) Pulse Ox O2 Delivery O2 Flow Rate FiO2 04/21/20 16:00 98.6 84 20 145/70 (95) 96 04/21/20 14:02 156/72 04/21/20 14:02 156/72 04/21/20 12:30 75 04/21/20 12:14 73 156/72 04/21/20 12:00 98.8 73 18 156/72 (100) 97 04/21/20 09:30 94 163/75 04/21/20 09:30 163/75 04/21/20 09:28 94 163/75 04/21/20 09:00 Nasal Cannula 3.0 04/21/20 08:00 99.0 94 20 163/75 (104) 96 04/21/20 07:45 89 04/21/20 05:59 135/69 04/21/20 05:06 76 141/74 04/21/20 04:00 76 04/21/20 04:00 98.6 76 17 141/74 (96) 97 04/21/20 01:07 77 144/66 04/21/20 00:00 76 04/21/20 00:00 98.8 77 18 127/61 (83) 96 04/20/20 22:14 147/80 04/20/20 21:00 Nasal Cannula 3.0 04/20/20 20:25 99 151/77 04/20/20 20:24 99 151/75 04/20/20 20:00 105 04/20/20 20:00 100.2 99 19 155/77 (103) 98 04/20/20 17:26 161/88 04/20/20 17:24 81 161/88 Intake and Output 04/20/20 04/21/20 19:00 07:00 Intake Total 1774.1667 ml 450 ml Output Total 1200 ml 300 ml Balance 574.1667 ml 150 ml Intake IV Total 1774.1667 ml 450 ml Output Urine Total 1200 ml 300 ml # Voids 1 # Bowel Movements 1 Laboratory Tests 04/20/20 16:21: POC Whole Blood Glucose 151H 04/20/20 20:19: POC Whole Blood Glucose [Pending] 04/20/20 20:53: Magnesium Level 2.0, Troponin I 0.823H, Pro-B-Type Natriuretic Peptide 583H, Vancomycin Level Trough 12.8H 04/21/20 04:00: Magnesium Level 1.9, Pro-B-Type Natriuretic Peptide 683H, White Blood Count 10.3, Red Blood Count 3.96L, Hemoglobin 12.1L, Hematocrit 36.7L, Mean Corpuscular Volume 93, Mean Corpuscular Hemoglobin 30.5, Mean Corpuscular Hemoglobin Concent 32.9, Red Cell Distribution Width 12.9, Platelet Count 202#, Mean Platelet Volume 12.1H, Neutrophils (%) (Auto) 70.9, Lymphocytes (%) (Auto) 18.3L, Monocytes (%) (Auto) 7.9, Eosinophils (%) (Auto) 2.0, Basophils (%) (Auto) 1.0, Sodium Level 136, Potassium Level 3.3L, Chloride Level 104, Carbon Dioxide Level 25, Anion Gap 7, Blood Urea Nitrogen 10, Creatinine 0.8, Estimat Glomerular Filtration Rate > 60, Glucose Level 166H, Uric Acid 3.2, Calcium Level 8.2L, Phosphorus Level 2.2L, Iron Level 31L, Total Iron Binding Capacity 194L, Percent Iron Saturation 16, Unsaturated Iron Binding 163, Ferritin 228, Total Bilirubin 0.6, Gamma Glutamyl Transpeptidase 17, Aspartate Amino Transf (AST/SGOT) 18, Alanine Aminotransferase (ALT/SGPT) 27, Alkaline Phosphatase 94, C-Reactive Protein, Quantitative 4.8H, Total Protein 6.7, Albumin 2.4L, Globulin 4.3, Albumin/Globulin Ratio 0.6L, Vitamin B12 Level 433, Folate 3.6L 04/21/20 06:01: POC Whole Blood Glucose 164H 04/21/20 11:13: POC Whole Blood Glucose 171H Height (Feet): 5 Height (Inches): 5.00 Weight (Pounds): 134 Assessment/Plan Assessment/Plan: S, O: Limited, patient is delirious PHYSICAL EXAMINATION:HEAD AND NECK: Atraumatic and normocephalic. CHEST: Diffuse bronchial breathing sounds.HEART: S1 and S2. Irregular rate and rhythm. ABDOMEN: Soft. No organomegaly.MUSCULOSKELETAL: Spontaneous movement in all four extremities. Limited evaluation.NEUROLOGY: The patient is delirious. Meds: reviewed and reconciled ASSESSMENT: 1. Breakthrough seizure secondary to noncompliance with medications. 2. Leukocytosis, likely reactive. 3. Chronic anemia. 4. Hypokalemia. 5. Diabetes type 2. 6. Abnormal troponin. 7. Atrial flutter. 8. GI and DVT prophylaxis. 9. We will continue with antiepileptic medication. 10. Continue with neuro checks. 11. We will start the patient on aspirin. 12. We will monitor off the antibiotic for now. 13. Obtain 2D echo. Plan: current empirical abx on isolation per ID, Pending COVID-PCR test will optimize BP med, followup with cardiology David Kaplan MD Apr 21, 2020 16:09
[2020-04-21 20:00] VITALS: BP 166/74
--- NOTE | 2020-04-21 23:31 | CDS Physician Query ---
Clarification is required for compliance, coding accuracy, and to reflect severity of illness for this patient. Dear Dr. David Kaplan MD Date: 04/21/20 CDIS: Edson Morris 64-year-old male with history of seizure disorder who was transferred from the [facility] facility after presentation of recurrent seizure. ASSESSMENT: 1. Breakthrough seizure secondary to noncompliance with medications. 2. Leukocytosis, likely reactive. 3. Chronic anemia. 4. Hypokalemia. 5. Diabetes type 2. 6. Abnormal troponin. 7. Atrial flutter. 8. GI and DVT prophylaxis. 9. We will continue with antiepileptic medication. The findings below have been reported on this patient's medical record: VITALS: Blood pressure 200/100, pulse rate 140, respiratory rate 18, temperature 98.8. LABS: (04/18) : WBC 11, hemoglobin of 12.7, platelet count of 197. \ Sodium 142, potassium 2.7, BUN 14, and creatinine 1.2, glucose 269. Troponin I 04/18 - 0.290, 04/19 - 0.773, 04/20 - 0.823 TEST RESULTS: EKG on admission, AFib/AFlutter with RVR. EKG now, sinus rhythm, T-wave inversions V1, V2, V3. Echocardiogram pending. Medication: Nitroglycerin 1 inch DAILY (04/19-05/19) Please Clarify the diagnosis associated with this finding: Diagnosis: Present on Admission: [] Yes [] No [x] Clinically Undetermined David Kaplan 04/22/20 Physician signature Date Please also document in your Progress Notes and/or Discharge Summary and indicate if the condition was present on admission. MTDD
[2020-04-22] VITALS (7 sets, daily range): BP systolic 127–158; BP diastolic 75–91
[2020-04-22] MEDS: dilTIAZem HCl 25mg/5ml Inj IVP SCH ×6 (01:00→22:46)
[2020-04-22] MEDS: Potassium Chloride 40 MEQ in 1/2 NS 1000ml 1,000 ML IV SCH (01:24)
[2020-04-22] MEDS: Aztreonam Inj 2 GM in D5W 110 ML IVPB SCH ×3 (05:26→22:14)
[2020-04-22] MEDS: Spironolactone 25mg tab ORAL SCH (05:27)
[2020-04-22] MEDS: NovoLOG Insulin Flexpen SUBQ SCH ×4 (06:08→21:00)
[2020-04-22] MEDS: HydrALAZINE 50mg tab ORAL SCH ×3 (06:09→22:15)
[2020-04-22 07:45] LABS: ALANINE AMINOTRANSFERASE 17 U/L (12-78); ALBUMIN 2.3 G/DL (3.4-5.0); ALBUMIN/GLOBULIN RATIO 0.5 (1.0-2.7); ALKALINE PHOSPHATASE 90 U/L (46-116); ANION GAP 9 mmol/L (5-15); ASPARTATE AMINO TRANSFERASE 20 U/L (15-37); BILIRUBIN,TOTAL 0.6 MG/DL (0.2-1.0); BLOOD UREA NITROGEN 10 mg/dL (7-18); CARBON DIOXIDE 24 MMOL/L (21-32); CHLORIDE 100 MMOL/L (98-107); CREATININE 0.8 MG/DL (0.55-1.30); PHOSPHORUS 2.6 MG/DL (2.5-4.9); POTASSIUM 3.5 MMOL/L (3.5-5.1); SODIUM 133 MMOL/L (136-145)
[2020-04-22] MEDS: Enoxaparin 60mg Inj SUBQ SCH ×2 (08:34→22:16)
[2020-04-22] MEDS: Pantoprazole Inj IVP SCH (08:35)
[2020-04-22] MEDS: Lisinopril 2.5mg tab ORAL SCH (08:37)
--- NOTE | 2020-04-22 08:40 | Nephrology Progress Note ---
Assessment/Plan Problem List: (1) Hypokalemia (2) Suspected 2019 novel coronavirus infection (3) Recurrent seizures (4) Elevated troponin I level Assessment Electrolyte imbalance Recurrent seizures. Medication noncompliance. CVA. half-way resident. Elevated troponin I Plan April 22: Blood pressure better controlled. Half-normal saline IV fluid discontinued. Continue to monitor electrolytes. Low magnesium replaced. C ontinue per consultants. Previously: Add Zestril for better BP control. Reviewed blood pressure medications. Magnesium, phosphorus, potassium chloride supplement as needed Monitor electrolytes Continue per consultants Subjective ROS Limited/Unobtainable: Yes Objective Objective Last 24 Hour Vital Signs Date Time Temp Pulse Resp B/P (MAP) Pulse Ox O2 Delivery O2 Flow Rate FiO2 04/22/20 08:37 131/90 04/22/20 08:37 96 131/90 04/22/20 08:37 96 131/90 04/22/20 08:00 97.0 96 20 131/90 (104) 97 04/22/20 06:09 158/78 04/22/20 05:26 80 158/78 04/22/20 04:01 80 04/22/20 04:00 98.8 87 20 158/78 (104) 100 04/22/20 01:00 75 158/81 04/22/20 00:00 98.6 74 20 147/75 (99) 98 04/22/20 00:00 75 04/21/20 22:22 166/74 04/21/20 21:26 94 166/74 04/21/20 21:26 94 166/74 04/21/20 21:00 Nasal Cannula 3.0 04/21/20 20:00 99.3 94 20 166/74 (104) 98 04/21/20 20:00 87 04/21/20 17:01 90 145/70 04/21/20 16:23 90 04/21/20 16:00 98.6 84 20 145/70 (95) 96 04/21/20 14:02 156/72 04/21/20 14:02 156/72 04/21/20 12:30 75 04/21/20 12:14 73 156/72 04/21/20 12:00 98.8 73 18 156/72 (100) 97 04/21/20 09:30 94 163/75 04/21/20 09:30 163/75 04/21/20 09:28 94 163/75 04/21/20 09:00 Nasal Cannula 3.0 Intake and Output 04/21/20 04/22/20 19:00 07:00 Intake Total 1610.0 ml Output Total 400 ml 500 ml Balance 1210.0 ml -500 ml Intake IV Total 1610.0 ml Output Urine Total 400 ml 500 ml # Bowel Movements 2 Laboratory Tests 04/21/20 11:13: POC Whole Blood Glucose 171H 04/21/20 16:25: POC Whole Blood Glucose 164H 04/21/20 21:38: POC Whole Blood Glucose [Pending] 04/22/20 05:39: POC Whole Blood Glucose [Pending] 04/22/20 06:12: Sodium Level 133L, Potassium Level 3.5, Chloride Level 100, Carbon Dioxide Level 24, Anion Gap 9, Blood Urea Nitrogen 10, Creatinine 0.8, Estimat Glomerular Filtration Rate > 60, Glucose Level 169H, Calcium Level 8.0L, Phosphorus Level 2.6, Magnesium Level 1.6L, Total Bilirubin 0.6, Aspartate Amino Transf (AST/SGOT) 20, Alanine Aminotransferase (ALT/SGPT) 17, Alkaline Phosphatase 90, Total Protein 6.8, Albumin 2.3L, Globulin 4.5, Albumin/Globulin Ratio 0.5L Height (Feet): 5 Height (Inches): 5.00 Weight (Pounds): 134 General Appearance: no apparent distress Cardiovascular: tachycardia Respiratory/Chest: decreased breath sounds Abdomen: distended Reymundo Doyle MD Apr 22, 2020 08:40
[2020-04-22] MEDS: Nitroglycerin 2% oint pkt TOPIC SCH (08:44)
[2020-04-22] MEDS: levETIRAcetam 500mg/NS100ml 100 ML IVPB SCH ×2 (09:03→22:14)
[2020-04-22] MEDS: Vancomycin 1 GM in NS 275 ML IVPB SCH ×2 (09:03→22:30)
--- NOTE | 2020-04-22 09:31 | Cardiology Progress Note ---
Assessment/Plan Status: stable Status Narrative Improving, hemodynamically stable Assessment/Plan 1. Seizure disorder with recent seizure, on Keppra 2. HTN, under better control 3. Afib/aflutter, converted to SR on diltiazem - rate controlled Lovenox for AC during hospitalization not a good candidate for DOAC due to seizure activity and increased risk of bleeding 4. HFpEF, acute on chronic diastolic HF IV Lasix for diuresis Subjective Cardiovascular: Reports: no symptoms Respiratory: Reports: no symptoms Gastrointestinal/Abdominal: Reports: difficulty swallowing Genitourinary: Reports: no symptoms Subjective no acute events, resting comfortably Objective Last 24 Hour Vital Signs Date Time Temp Pulse Resp B/P (MAP) Pulse Ox O2 Delivery O2 Flow Rate FiO2 04/22/20 08:44 131/90 04/22/20 08:37 131/90 04/22/20 08:37 96 131/90 04/22/20 08:37 96 131/90 04/22/20 08:00 97.0 96 20 131/90 (104) 97 04/22/20 06:09 158/78 04/22/20 05:26 80 158/78 04/22/20 04:01 80 04/22/20 04:00 98.8 87 20 158/78 (104) 100 04/22/20 01:00 75 158/81 04/22/20 00:00 98.6 74 20 147/75 (99) 98 04/22/20 00:00 75 04/21/20 22:22 166/74 04/21/20 21:26 94 166/74 04/21/20 21:26 94 166/74 04/21/20 21:00 Nasal Cannula 3.0 04/21/20 20:00 99.3 94 20 166/74 (104) 98 04/21/20 20:00 87 04/21/20 17:01 90 145/70 04/21/20 16:23 90 04/21/20 16:00 98.6 84 20 145/70 (95) 96 04/21/20 14:02 156/72 04/21/20 14:02 156/72 04/21/20 12:30 75 04/21/20 12:14 73 156/72 04/21/20 12:00 98.8 73 18 156/72 (100) 97 11/10/20 09:30 94 163/75 04/21/20 09:30 163/75 04/21/20 09:28 94 163/75 General Appearance: no apparent distress EENT: PERRL/EOMI, normal ENT inspection Neck: supple, normal inspection, no JVD Rhythm: NSR Cardiovascular: normal peripheral pulses Respiratory/Chest: normal breath sounds, no respiratory distress Abdomen: non tender, soft Extremities: trace edema Neurologic: motor weakness Intake and Output 04/21/20 04/22/20 19:00 07:00 Intake Total 1610.0 ml Output Total 400 ml 500 ml Balance 1210.0 ml -500 ml Intake IV Total 1610.0 ml Output Urine Total 400 ml 500 ml # Bowel Movements 2 Laboratory Tests Test 04/21/20 11:13 04/21/20 16:25 04/21/20 21:38 04/22/20 05:39 POC Whole Blood Glucose 171 MG/DL (74-106) H 164 MG/DL (74-106) H Pending Pending Test 04/22/20 06:12 Sodium Level 133 MMOL/L (136-145) L Potassium Level 3.5 MMOL/L (3.5-5.1) Chloride Level 100 MMOL/L (98-107) Carbon Dioxide Level 24 MMOL/L (21-32) Anion Gap 9 mmol/L (5-15) Blood Urea Nitrogen 10 mg/dL (7-18) Creatinine 0.8 MG/DL (0.55-1.30) Estimat Glomerular Filtration Rate > 60 mL/min (>60) Glucose Level 169 MG/DL (74-106) H Calcium Level 8.0 MG/DL (8.5-10.1) L Phosphorus Level 2.6 MG/DL (2.5-4.9) Magnesium Level 1.6 MG/DL (1.8-2.4) L Total Bilirubin 0.6 MG/DL (0.2-1.0) Aspartate Amino Transf (AST/SGOT) 20 U/L (15-37) Alanine Aminotransferase (ALT/SGPT) 17 U/L (12-78) Alkaline Phosphatase 90 U/L (46-116) Total Protein 6.8 G/DL (6.4-8.2) Albumin 2.3 G/DL (3.4-5.0) L Globulin 4.5 g/dL Albumin/Globulin Ratio 0.5 (1.0-2.7) L Microbiology Date/Time Source Procedure Growth Status 04/19/20 14:06 Nasopharynx - Final Complete 04/19/20 14:06 Nasopharynx - Final Complete 04/19/20 11:37 Nasopharynx Coronavirus COVID-19 PCR ([facility]) - Final Complete 04/19/20 11:08 Urine,Clean Catch Urine Culture - Final Pseudomonas Aeruginosa Complete Larissa Tavares PA-C Apr 22, 2020 09:31
--- NOTE | 2020-04-22 09:58 | Pulmonology Progress Note ---
Subjective ROS Limited/Unobtainable: Yes Interval Events: None new Constitutional: Reports: no symptoms HEENT: Repors: no symptoms Respiratory: Reports: no symptoms Cardiovascular: Reports: no symptoms Gastrointestinal/Abdominal: Reports: no symptoms Allergies: Coded Allergies: No Known Allergies (Unverified , 04/18/20) Objective Last 24 Hour Vital Signs Date Time Temp Pulse Resp B/P (MAP) Pulse Ox O2 Delivery O2 Flow Rate FiO2 04/22/20 08:44 131/90 04/22/20 08:37 131/90 04/22/20 08:37 96 131/90 04/22/20 08:37 96 131/90 04/22/20 08:00 97.0 96 20 131/90 (104) 97 04/22/20 06:09 158/78 04/22/20 05:26 80 158/78 04/22/20 04:01 80 04/22/20 04:00 98.8 87 20 158/78 (104) 100 04/22/20 01:00 75 158/81 04/22/20 00:00 98.6 74 20 147/75 (99) 98 04/22/20 00:00 75 04/21/20 22:22 166/74 04/21/20 21:26 94 166/74 04/21/20 21:26 94 166/74 04/21/20 21:00 Nasal Cannula 3.0 04/21/20 20:00 99.3 94 20 166/74 (104) 98 04/21/20 20:00 87 04/21/20 17:01 90 145/70 04/21/20 16:23 90 04/21/20 16:00 98.6 84 20 145/70 (95) 96 04/21/20 14:02 156/72 04/21/20 14:02 156/72 04/21/20 12:30 75 04/21/20 12:14 73 156/72 04/21/20 12:00 98.8 73 18 156/72 (100) 97 Intake and Output 04/21/20 04/22/20 19:00 07:00 Intake Total 1610.0 ml Output Total 400 ml 500 ml Balance 1210.0 ml -500 ml Intake IV Total 1610.0 ml Output Urine Total 400 ml 500 ml # Bowel Movements 2 General Appearance: no acute distress HEENT: normocephalic Respiratory: chest wall non-tender, lungs clear Cardiovascular: normal peripheral pulses Abdomen: normal bowel sounds Microbiology Date/Time Source Procedure Growth Status 04/19/20 14:06 Nasopharynx - Final Complete 04/19/20 14:06 Nasopharynx - Final Complete 04/19/20 11:37 Nasopharynx Coronavirus COVID-19 PCR ([facility]) - Final Complete 04/19/20 11:08 Urine,Clean Catch Urine Culture - Final Pseudomonas Aeruginosa Complete Laboratory Tests 04/21/20 11:13: POC Whole Blood Glucose 171H 04/21/20 16:25: POC Whole Blood Glucose 164H 04/21/20 21:38: POC Whole Blood Glucose [Pending] 04/22/20 05:39: POC Whole Blood Glucose [Pending] 04/22/20 06:12: Sodium Level 133L, Potassium Level 3.5, Chloride Level 100, Carbon Dioxide Level 24, Anion Gap 9, Blood Urea Nitrogen 10, Creatinine 0.8, Estimat Glomerular Filtration Rate > 60, Glucose Level 169H, Calcium Level 8.0L, Phosphorus Level 2.6, Magnesium Level 1.6L, Total Bilirubin 0.6, Aspartate Amino Transf (AST/SGOT) 20, Alanine Aminotransferase (ALT/SGPT) 17, Alkaline Phosphatase 90, Pro-B-Type Natriuretic Peptide [Pending], Total Protein 6.8, Albumin 2.3L, Globulin 4.5, Albumin/Globulin Ratio 0.5L Current Medications Medications (Trade) Dose Ordered Sig/Kamron Route PRN Reason Start Time Stop Time Status Last Admin Dose Admin Aztreonam 2 gm/ Dextrose 110 ml @ 220 mls/hr Q8HR IVPB 04/19/20 11:00 04/26/20 10:59 04/22/20 05:26 Dextrose (Dextrose 50%) 25 ml Q30M PRN IV Hypoglycemia 04/19/20 07:30 07/18/20 07:29 Dextrose (Dextrose 50%) 50 ml Q30M PRN IV Hypoglycemia 04/19/20 07:30 07/18/20 07:29 Diltiazem HCl (Cardizem) 25 mg Q4HR IVP 04/19/20 01:00 05/19/20 00:59 04/22/20 08:37 Enoxaparin Sodium (Lovenox) 60 mg EVERY 12 HOURS SUBQ 04/19/20 09:00 07/18/20 08:59 04/22/20 08:34 Folic Acid (Folate) 3 mg DAILY ORAL 04/21/20 09:00 05/21/20 08:59 04/22/20 08:37 Hydralazine HCl (Apresoline) 50 mg Q8HR ORAL 04/20/20 16:48 07/19/20 16:47 04/22/20 06:09 Insulin Aspart (NovoLOG) BEFORE MEALS AND HS SUBQ 04/19/20 11:30 07/18/20 11:29 04/22/20 06:08 Levetiracetam 100 ml @ 400 mls/hr Q12HR IVPB 04/19/20 00:00 07/18/20 00:00 04/22/20 09:03 Lisinopril (ZestriL) 2.5 mg DAILY ORAL 04/21/20 13:30 05/21/20 13:29 04/22/20 08:37 Lorazepam (Ativan 2mg/ml 1ml) 1 mg Q1H PRN IV For Seizures 04/19/20 00:30 04/26/20 00:29 Magnesium Sulfate 100 ml @ 100 mls/hr Q1H IVPB 04/22/20 09:00 04/22/20 10:59 04/22/20 09:03 Metoprolol Tartrate (Lopressor) 25 mg Q12HR ORAL 04/20/20 21:00 07/19/20 20:59 04/22/20 08:37 Nitroglycerin (Nitro-Bid) 1 inch DAILY TOPIC 04/19/20 09:30 05/19/20 09:29 04/22/20 08:44 Pantoprazole (Protonix) 40 mg DAILY IVP 04/19/20 09:00 05/19/20 08:59 04/22/20 08:35 Spironolactone (Aldactone) 25 mg BEFORE BREAKFAST ORAL 04/21/20 06:30 05/21/20 06:29 04/22/20 05:27 Tramadol HCl (Ultram) 25 mg BID PRN ORAL For Pain 04/19/20 01:45 04/25/20 22:59 Vancomycin HCl (Vanco pharmacy to dose) 1 ea DAILY PRN MISC Per rx protocol 04/19/20 08:45 05/19/20 08:44 Vancomycin HCl 1 gm/Sodium Chloride 275 ml @ 183.708 mls/hr Q12HR@1000,2200 IVPB 04/20/20 22:00 04/25/20 21:59 04/22/20 09:03 Assessment/Plan Assessment/Plan IMPRESSION: 1. Negative COVID-19 pneumonia. 2. Recurrent seizures. 3. Medication noncompliance. 4. CVA. 5. retirement resident. DISCUSSION: Continue medications for seizures. Currently, Keppra would be appropriate 500 mg twice a day. DVT prophylaxis. I will follow. Saturnino Dalal M.D. Saturnino Dalal MD Apr 22, 2020 09:58
--- NOTE | 2020-04-22 11:25 | General Progress Note ---
Subjective Allergies: Coded Allergies: No Known Allergies (Unverified , 04/18/20) Objective Last 24 Hour Vital Signs Date Time Temp Pulse Resp B/P (MAP) Pulse Ox O2 Delivery O2 Flow Rate FiO2 04/22/20 08:44 131/90 04/22/20 08:37 131/90 04/22/20 08:37 96 131/90 04/22/20 08:37 96 131/90 04/22/20 08:00 95 04/22/20 08:00 97.0 96 20 131/90 (104) 97 04/22/20 06:09 158/78 04/22/20 05:26 80 158/78 04/22/20 04:01 80 04/22/20 04:00 98.8 87 20 158/78 (104) 100 04/22/20 01:00 75 158/81 04/22/20 00:00 98.6 74 20 147/75 (99) 98 04/22/20 00:00 75 04/21/20 22:22 166/74 04/21/20 21:26 94 166/74 04/21/20 21:26 94 166/74 04/21/20 21:00 Nasal Cannula 3.0 04/21/20 20:00 99.3 94 20 166/74 (104) 98 04/21/20 20:00 87 04/21/20 17:01 90 145/70 04/21/20 16:23 90 04/21/20 16:00 98.6 84 20 145/70 (95) 96 04/21/20 14:02 156/72 04/21/20 14:02 156/72 04/21/20 12:30 75 04/21/20 12:14 73 156/72 04/21/20 12:00 98.8 73 18 156/72 (100) 97 Intake and Output 04/21/20 04/22/20 19:00 07:00 Intake Total 1610.0 ml Output Total 400 ml 500 ml Balance 1210.0 ml -500 ml Intake IV Total 1610.0 ml Output Urine Total 400 ml 500 ml # Bowel Movements 2 Laboratory Tests 04/21/20 16:25: POC Whole Blood Glucose 164H 04/21/20 21:38: POC Whole Blood Glucose [Pending] 04/22/20 05:39: POC Whole Blood Glucose [Pending] 04/22/20 06:12: Sodium Level 133L, Potassium Level 3.5, Chloride Level 100, Carbon Dioxide Level 24, Anion Gap 9, Blood Urea Nitrogen 10, Creatinine 0.8, Estimat Glomerular Filtration Rate > 60, Glucose Level 169H, Calcium Level 8.0L, Phosphorus Level 2.6, Magnesium Level 1.6L, Total Bilirubin 0.6, Aspartate Amino Transf (AST/SGOT) 20, Alanine Aminotransferase (ALT/SGPT) 17, Alkaline Phosphatase 90, Pro-B-Type Natriuretic Peptide 1356H, Total Protein 6.8, Albumin 2.3L, Globulin 4.5, Albumin/Globulin Ratio 0.5L Height (Feet): 5 Height (Inches): 5.00 Weight (Pounds): 134 Assessment/Plan Status: stable Assessment/Plan: S, O: Limited, patient is delirious PHYSICAL EXAMINATION:HEAD AND NECK: Atraumatic and normocephalic. CHEST: Diffuse bronchial breathing sounds.HEART: S1 and S2. Irregular rate and rhythm. ABDOMEN: Soft. No organomegaly.MUSCULOSKELETAL: Spontaneous movement in all four extremities. Limited evaluation.NEUROLOGY: The patient is delirious. Meds: reviewed and reconciled ASSESSMENT: 1. Sepsis 2. UTI- Pseudomonas 3. Breakthrough seizure secondary to noncompliance with medications. 2. Leukocytosis, likely reactive. 3. Chronic anemia. 4. Hypokalemia. 5. Diabetes type 2. 6. Abnormal troponin. 7. Atrial flutter. 8. GI and DVT prophylaxis. 9. We will continue with antiepileptic medication. 10. Continue with neuro checks. 11. We will start the patient on aspirin. 12. We will monitor off the antibiotic for now. 13. Obtain 2D echo. Plan: off isolation per ID, Pending COVID-PCR test High Troponin levels, followup with cardiology once clear by cardiology, may continue with current abx in [facility] David Kaplan MD Apr 22, 2020 11:25
[2020-04-22] MEDS ORDERED: Varibar Thin Liquid powder 148gm MC PRN (16:15)
[2020-04-22] MEDS ORDERED: Varibar Honey 250ml MC PRN (16:15)
[2020-04-22] MEDS ORDERED: Varibar Pudding 230ml MC PRN (16:15)
[2020-04-22] MEDS ORDERED: Varibar Nectar 240ml MC PRN (16:15)
--- NOTE | 2020-04-22 17:58 | Infectious Diseases Prog Note ---
Assessment/Plan Problems: (1) Suspected 2019 novel coronavirus infection Assessment & Plan: was ruled out with negative PCR test , MAY DISCONTINUE isolation for now (2) Fever Assessment & Plan: suspect due to UTI already on aztreonam (3) Recurrent seizures Assessment & Plan: reloaded with meds, watch out for breakthrough , neurology eval, aspiration precaution (4) Hypoxemia requiring supplemental oxygen Assessment & Plan: rule out viral etiology with negative CXR for infiltration , await COVID 19 PCR test to confirm, influenza A&B are both negative. keep in isolation, monitor CXR and ABG (5) Pseudomonas urinary tract infection Assessment & Plan: continue aztreonam for 7 days Subjective ROS Limited/Unobtainable: Yes Allergies: Coded Allergies: No Known Allergies (Unverified , 04/18/20) he was lying in bed lethargic and minimally responsive, had no fever or chills, no cough or shortness of breath and no diarrhea. Objective Last 24 Hour Vital Signs Date Time Temp Pulse Resp B/P (MAP) Pulse Ox O2 Delivery O2 Flow Rate FiO2 04/22/20 16:00 72 04/22/20 16:00 97.0 72 20 127/86 (100) 96 04/22/20 14:20 129/80 04/22/20 13:54 82 129/80 04/22/20 12:00 82 04/22/20 12:00 98.2 82 20 129/80 (96) 97 04/22/20 08:44 131/90 04/22/20 08:37 131/90 04/22/20 08:37 96 131/90 04/22/20 08:37 96 131/90 04/22/20 08:00 95 04/22/20 08:00 97.0 96 20 131/90 (104) 97 04/22/20 06:09 158/78 04/22/20 05:26 80 158/78 04/22/20 04:01 80 04/22/20 04:00 98.8 87 20 158/78 (104) 100 04/22/20 01:00 75 158/81 04/22/20 00:00 98.6 74 20 147/75 (99) 98 04/22/20 00:00 75 04/21/20 22:22 166/74 04/21/20 21:26 94 166/74 04/21/20 21:26 94 166/74 04/21/20 21:00 Nasal Cannula 3.0 04/21/20 20:00 99.3 94 20 166/74 (104) 98 04/21/20 20:00 87 Height (Feet): 5 Height (Inches): 5.00 Weight (Pounds): 134 General Appearance: WD/WN, no acute distress HEENT: normocephalic, atraumatic, anicteric, mucous membranes moist, PERRL Respiratory/Chest: chest wall non-tender, lungs clear, normal breath sounds, no respiratory distress, no accessory muscle use Cardiovascular: normal peripheral pulses, normal rate, regular rhythm, no gallop/murmur, no JVD Abdomen: normal bowel sounds, soft, non tender, no organomegaly, non distended, no mass, no scars Genitourinary: normal external genitalia Extremities: no cyanosis, no clubbing Skin: no rash, no lesions 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, alert, unresponsiveness Lymphatic: no neck adenopathy, no groin adenopathy Musculoskeletal: no effusion Laboratory Tests Test 04/21/20 21:38 04/22/20 05:39 04/22/20 06:12 04/22/20 11:46 POC Whole Blood Glucose Pending Pending 172 MG/DL (74-106) H Sodium Level 133 MMOL/L (136-145) L Potassium Level 3.5 MMOL/L (3.5-5.1) Chloride Level 100 MMOL/L (98-107) Carbon Dioxide Level 24 MMOL/L (21-32) Anion Gap 9 mmol/L (5-15) Blood Urea Nitrogen 10 mg/dL (7-18) Creatinine 0.8 MG/DL (0.55-1.30) Estimat Glomerular Filtration Rate > 60 mL/min (>60) Glucose Level 169 MG/DL (74-106) H Calcium Level 8.0 MG/DL (8.5-10.1) L Phosphorus Level 2.6 MG/DL (2.5-4.9) Magnesium Level 1.6 MG/DL (1.8-2.4) L Total Bilirubin 0.6 MG/DL (0.2-1.0) Aspartate Amino Transf (AST/SGOT) 20 U/L (15-37) Alanine Aminotransferase (ALT/SGPT) 17 U/L (12-78) Alkaline Phosphatase 90 U/L (46-116) Pro-B-Type Natriuretic Peptide 1356 pg/mL (0-125) H Total Protein 6.8 G/DL (6.4-8.2) Albumin 2.3 G/DL (3.4-5.0) L Globulin 4.5 g/dL Albumin/Globulin Ratio 0.5 (1.0-2.7) L Test 04/22/20 17:42 POC Whole Blood Glucose 147 MG/DL (74-106) H Current Medications Medications (Trade) Dose Ordered Sig/Kamron Route PRN Reason Start Time Stop Time Status Last Admin Dose Admin Aztreonam 2 gm/ Dextrose 110 ml @ 220 mls/hr Q8HR IVPB 04/19/20 11:00 04/26/20 10:59 04/22/20 13:50 Barium Sulfate (Varibar Honey) 250 ml NOW PRN RAD 04/22/20 16:15 04/25/20 16:13 Barium Sulfate (Varibar [place]) 240 ml NOW PRN RAD 04/22/20 16:15 04/25/20 16:13 Barium Sulfate (Varibar Pudding) 230 ml NOW PRN MC RAD 04/22/20 16:15 04/25/20 16:13 Barium Sulfate (Varibar Thin Liquid powder) 148 gm NOW PRN RAD 04/22/20 16:15 04/25/20 16:13 Chlorhexidine Gluconate (Haylie-Hex 2%) 1 applic DAILY@2000 TOPIC 04/22/20 20:00 07/21/20 19:59 Dextrose (Dextrose 50%) 25 ml Q30M PRN IV Hypoglycemia 04/19/20 07:30 07/18/20 07:29 Dextrose (Dextrose 50%) 50 ml Q30M PRN IV Hypoglycemia 04/19/20 07:30 07/18/20 07:29 Diltiazem HCl (Cardizem) 25 mg Q4HR IVP 04/19/20 01:00 05/19/20 00:59 04/22/20 13:54 Enoxaparin Sodium (Lovenox) 60 mg EVERY 12 HOURS SUBQ 04/19/20 09:00 07/18/20 08:59 04/22/20 08:34 Folic Acid (Folate) 3 mg DAILY ORAL 04/21/20 09:00 05/21/20 08:59 04/22/20 08:37 Hydralazine HCl (Apresoline) 50 mg Q8HR ORAL 04/20/20 16:48 07/19/20 16:47 04/22/20 14:20 Insulin Aspart (NovoLOG) BEFORE MEALS AND HS SUBQ 04/19/20 11:30 07/18/20 11:29 04/22/20 11:53 Levetiracetam 100 ml @ 400 mls/hr Q12HR IVPB 04/19/20 00:00 07/18/20 00:00 04/22/20 09:03 Lisinopril (ZestriL) 2.5 mg DAILY ORAL 04/21/20 13:30 05/21/20 13:29 04/22/20 08:37 Lorazepam (Ativan 2mg/ml 1ml) 1 mg Q1H PRN IV For Seizures 04/19/20 00:30 04/26/20 00:29 Metoprolol Tartrate (Lopressor) 25 mg Q12HR ORAL 04/20/20 21:00 07/19/20 20:59 04/22/20 08:37 Nitroglycerin (Nitro-Bid) 1 inch DAILY TOPIC 04/19/20 09:30 05/19/20 09:29 04/22/20 08:44 Pantoprazole (Protonix) 40 mg DAILY IVP 04/19/20 09:00 05/19/20 08:59 04/22/20 08:35 Spironolactone (Aldactone) 25 mg BEFORE BREAKFAST ORAL 04/21/20 06:30 05/21/20 06:29 04/22/20 05:27 Tramadol HCl (Ultram) 25 mg BID PRN ORAL For Pain 04/19/20 01:45 04/25/20 22:59 Vancomycin HCl (Vanco pharmacy to dose) 1 ea DAILY PRN MISC Per rx protocol 04/19/20 08:45 05/19/20 08:44 Vancomycin HCl 1 gm/Sodium Chloride 275 ml @ 183.708 mls/hr Q12HR@1000,2200 IVPB 04/20/20 22:00 04/25/20 21:59 04/22/20 09:03 Hermann Blue M.D. 11, 2020 17:58
[2020-04-22] MEDS ORDERED: Tubing IV Secondary IV ONE (21:51)
[2020-04-22] MEDS: Dyna-Hex 2% Top Sol 2oz TOPIC SCH (22:15)
[2020-04-23] MEDS: dilTIAZem HCl 25mg/5ml Inj IVP SCH ×2 (02:09→05:00)
[2020-04-23 04:00] VITALS: BP 143/71
[2020-04-23] MEDS: Spironolactone 25mg tab ORAL SCH (06:01)
[2020-04-23] MEDS: HydrALAZINE 50mg tab ORAL SCH ×2 (06:01→13:31)
[2020-04-23] MEDS: Aztreonam Inj 2 GM in D5W 110 ML IVPB SCH ×3 (06:29→22:34)
[2020-04-23] MEDS: NovoLOG Insulin Flexpen SUBQ SCH ×4 (06:30→22:17)
[2020-04-23 08:00] VITALS: BP 155/76
--- NOTE | 2020-04-23 08:44 | Nephrology Progress Note ---
Assessment/Plan Problem List: (1) Hypokalemia (2) Suspected 2019 novel coronavirus infection (3) Recurrent seizures (4) Elevated troponin I level Assessment Electrolyte imbalance Recurrent seizures. Medication noncompliance. CVA. [facility] resident. Elevated troponin I Plan April 23: Today's labs not drawn yet. Meds reviewed. Continue per consultants. April 22: Blood pressure better controlled. Half-normal saline IV fluid discontinued. Continue to monitor electrolytes. Low magnesium replaced. Continue per consultants. Previously: Add Zestril for better BP control. Reviewed blood pressure medications. Magnesium, phosphorus, potassium chloride supplement as needed Monitor electrolytes Continue per consultants Subjective ROS Limited/Unobtainable: No Constitutional: Reports: malaise Objective Objective Last 24 Hour Vital Signs Date Time Temp Pulse Resp B/P (MAP) Pulse Ox O2 Delivery O2 Flow Rate FiO2 04/23/20 06:01 154/87 04/23/20 05:00 73 142/71 04/23/20 04:00 97.5 75 18 143/71 (95) 97 04/23/20 02:09 81 153/77 04/22/20 23:16 98.1 88 20 140/77 (98) 98 04/22/20 22:46 89 157/91 04/22/20 22:15 89 157/91 04/22/20 22:15 157/91 04/22/20 21:00 Nasal Cannula 4.0 04/22/20 20:00 98.2 89 20 157/91 (113) 96 04/22/20 20:00 87 04/22/20 17:52 72 127/86 04/22/20 16:00 72 04/22/20 16:00 97.0 72 20 127/86 (100) 96 04/22/20 14:20 129/80 04/22/20 13:54 82 129/80 04/22/20 12:00 82 04/22/20 12:00 98.2 82 20 129/80 (96) 97 04/22/20 09:00 Nasal Cannula 4.0 04/22/20 08:44 131/90 Intake and Output 04/22/20 04/23/20 19:00 07:00 Intake Total 20 ml 20 ml Output Total 400 ml 300 ml Balance -380 ml -280 ml Intake Oral 20 ml 20 ml Output Urine Total 400 ml 300 ml # Voids 3 # Bowel Movements 1 Current Medications Medications (Trade) Dose Ordered Sig/Kamron Route PRN Reason Start Time Stop Time Status Last Admin Dose Admin Aztreonam 2 gm/ Dextrose 110 ml @ 220 mls/hr Q8HR IVPB 04/19/20 11:00 04/26/20 10:59 04/23/20 06:29 Barium Sulfate (Varibar Honey) 250 ml NOW PRN RAD 04/22/20 16:15 04/25/20 16:13 Barium Sulfate (Varibar [place]) 240 ml NOW PRN RAD 04/22/20 16:15 04/25/20 16:13 Barium Sulfate (Varibar Pudding) 230 ml NOW PRN RAD 04/22/20 16:15 04/25/20 16:13 Barium Sulfate (Varibar Thin Liquid powder) 148 gm NOW PRN RAD 04/22/20 16:15 04/25/20 16:13 Chlorhexidine Gluconate (Haylie-Hex 2%) 1 applic DAILY@2000 TOPIC 04/22/20 20:00 07/21/20 19:59 04/22/20 22:15 Dextrose (Dextrose 50%) 25 ml Q30M PRN IV Hypoglycemia 04/19/20 07:30 07/18/20 07:29 Dextrose (Dextrose 50%) 50 ml Q30M PRN IV Hypoglycemia 04/19/20 07:30 07/18/20 07:29 Diltiazem HCl (Cardizem Tab) 25 mg Q4HR ORAL 04/23/20 09:00 05/23/20 08:59 UNV Enoxaparin Sodium (Lovenox) 60 mg EVERY 12 HOURS SUBQ 04/19/20 09:00 07/18/20 08:59 04/22/20 22:16 Folic Acid (Folate) 3 mg DAILY ORAL 04/21/20 09:00 05/21/20 08:59 04/22/20 08:37 Hydralazine HCl (Apresoline) 50 mg Q8HR ORAL 04/20/20 16:48 07/19/20 16:47 04/23/20 06:01 Insulin Aspart (NovoLOG) BEFORE MEALS AND HS SUBQ 04/19/20 11:30 07/18/20 11:29 04/22/20 17:55 Levetiracetam 100 ml @ 400 mls/hr Q12HR IVPB 04/19/20 00:00 07/18/20 00:00 04/22/20 22:14 Lisinopril (ZestriL) 2.5 mg DAILY ORAL 04/21/20 13:30 05/21/20 13:29 04/22/20 08:37 Lorazepam (Ativan 2mg/ml 1ml) 1 mg Q1H PRN IV For Seizures 04/19/20 00:30 04/26/20 00:29 Metoprolol Tartrate (Lopressor) 25 mg Q12HR ORAL 04/20/20 21:00 07/19/20 20:59 04/22/20 22:15 Nitroglycerin (Nitro-Bid) 1 inch DAILY TOPIC 04/19/20 09:30 05/19/20 09:29 04/22/20 08:44 Pantoprazole (Protonix) 40 mg DAILY IVP 04/19/20 09:00 05/19/20 08:59 04/22/20 08:35 Spironolactone (Aldactone) 25 mg BEFORE BREAKFAST ORAL 04/21/20 06:30 05/21/20 06:29 04/23/20 06:01 Tramadol HCl (Ultram) 25 mg BID PRN ORAL For Pain 04/19/20 01:45 04/25/20 22:59 Vancomycin HCl ([facility] pharmacy to dose) 1 ea DAILY PRN MISC Per rx protocol 04/19/20 08:45 05/19/20 08:44 Vancomycin HCl 1 gm/Sodium Chloride 275 ml @ 183.708 mls/hr Q12HR@1000,2200 IVPB 04/20/20 22:00 04/25/20 21:59 04/22/20 22:30 Laboratory Tests 04/22/20 11:46: POC Whole Blood Glucose 172H 04/22/20 17:42: POC Whole Blood Glucose 147H 04/22/20 23:01: POC Whole Blood Glucose [Pending] 04/23/20 06:26: POC Whole Blood Glucose 166H Height (Feet): 5 Height (Inches): 5.00 Weight (Pounds): 134 General Appearance: no apparent distress Cardiovascular: normal rate Respiratory/Chest: decreased breath sounds Abdomen: soft Reymundo Doyle MD Apr 23, 2020 08:44
[2020-04-23] MEDS ORDERED: dilTIAZem HCl 30mg tab ORAL SCH (09:00)
--- NOTE | 2020-04-23 09:03 | Pulmonology Progress Note ---
Subjective ROS Limited/Unobtainable: No Interval Events: None new Constitutional: Reports: no symptoms HEENT: Repors: no symptoms Respiratory: Reports: no symptoms Cardiovascular: Reports: no symptoms Gastrointestinal/Abdominal: Reports: no symptoms Allergies: Coded Allergies: No Known Allergies (Unverified , 04/18/20) Objective Last 24 Hour Vital Signs Date Time Temp Pulse Resp B/P (MAP) Pulse Ox O2 Delivery O2 Flow Rate FiO2 04/23/20 06:01 154/87 04/23/20 05:00 73 142/71 04/23/20 04:00 97.5 75 18 143/71 (95) 97 04/23/20 02:09 81 153/77 04/22/20 23:16 98.1 88 20 140/77 (98) 98 04/22/20 22:46 89 157/91 04/22/20 22:15 89 157/91 04/22/20 22:15 157/91 04/22/20 21:00 Nasal Cannula 4.0 04/22/20 20:00 98.2 89 20 157/91 (113) 96 04/22/20 20:00 87 04/22/20 17:52 72 127/86 04/22/20 16:00 72 04/22/20 16:00 97.0 72 20 127/86 (100) 96 04/22/20 14:20 129/80 04/22/20 13:54 82 129/80 04/22/20 12:00 82 04/22/20 12:00 98.2 82 20 129/80 (96) 97 Intake and Output 04/22/20 04/23/20 19:00 07:00 Intake Total 20 ml 20 ml Output Total 400 ml 300 ml Balance -380 ml -280 ml Intake Oral 20 ml 20 ml Output Urine Total 400 ml 300 ml # Voids 3 # Bowel Movements 1 General Appearance: no acute distress HEENT: normocephalic Respiratory: chest wall non-tender, lungs clear Cardiovascular: normal peripheral pulses Abdomen: normal bowel sounds Laboratory Tests 04/22/20 11:46: POC Whole Blood Glucose 172H 04/22/20 17:42: POC Whole Blood Glucose 147H 04/22/20 23:01: POC Whole Blood Glucose [Pending] 04/23/20 06:26: POC Whole Blood Glucose 166H Current Medications Medications (Trade) Dose Ordered Sig/[place] Route PRN Reason Start Time Stop Time Status Last Admin Dose Admin Aztreonam 2 gm/ Dextrose 110 ml @ 220 mls/hr Q8HR IVPB 04/19/20 11:00 04/26/20 10:59 04/23/20 06:29 Barium Sulfate (Varibar Honey) 250 ml NOW PRN RAD 04/22/20 16:15 04/25/20 16:13 Barium Sulfate (Varibar [place]) 240 ml NOW PRN RAD 04/22/20 16:15 04/25/20 16:13 Barium Sulfate (Varibar Pudding) 230 ml NOW PRN RAD 04/22/20 16:15 04/25/20 16:13 Barium Sulfate (Varibar Thin Liquid powder) 148 gm NOW PRN RAD 04/22/20 16:15 04/25/20 16:13 Chlorhexidine Gluconate (Haylie-Hex 2%) 1 applic DAILY@2000 TOPIC 04/22/20 20:00 07/21/20 19:59 04/22/20 22:15 Dextrose (Dextrose 50%) 25 ml Q30M PRN IV Hypoglycemia 04/19/20 07:30 07/18/20 07:29 Dextrose (Dextrose 50%) 50 ml Q30M PRN IV Hypoglycemia 04/19/20 07:30 07/18/20 07:29 Diltiazem HCl (Cardizem Tab) 25 mg Q4HR ORAL 04/23/20 09:00 05/23/20 08:59 UNV Enoxaparin Sodium (Lovenox) 60 mg EVERY 12 HOURS SUBQ 04/19/20 09:00 07/18/20 08:59 04/22/20 22:16 Folic Acid (Folate) 3 mg DAILY ORAL 04/21/20 09:00 05/21/20 08:59 04/22/20 08:37 Hydralazine HCl (Apresoline) 50 mg Q8HR ORAL 04/20/20 16:48 07/19/20 16:47 04/23/20 06:01 Insulin Aspart (NovoLOG) BEFORE MEALS AND HS SUBQ 04/19/20 11:30 07/18/20 11:29 04/22/20 17:55 Levetiracetam 100 ml @ 400 mls/hr Q12HR IVPB 04/19/20 00:00 07/18/20 00:00 04/22/20 22:14 Lisinopril (ZestriL) 2.5 mg DAILY ORAL 04/21/20 13:30 05/21/20 13:29 04/22/20 08:37 Lorazepam (Ativan 2mg/ml 1ml) 1 mg Q1H PRN IV For Seizures 04/19/20 00:30 04/26/20 00:29 Metoprolol Tartrate (Lopressor) 25 mg Q12HR ORAL 04/20/20 21:00 07/19/20 20:59 04/22/20 22:15 Nitroglycerin (Nitro-Bid) 1 inch DAILY TOPIC 04/19/20 09:30 05/19/20 09:29 04/22/20 08:44 Pantoprazole (Protonix) 40 mg DAILY IVP 04/19/20 09:00 05/19/20 08:59 04/22/20 08:35 Spironolactone (Aldactone) 25 mg BEFORE BREAKFAST ORAL 04/21/20 06:30 05/21/20 06:29 04/23/20 06:01 Tramadol HCl (Ultram) 25 mg BID PRN ORAL For Pain 04/19/20 01:45 04/25/20 22:59 Vancomycin HCl ([facility] pharmacy to dose) 1 ea DAILY PRN MISC Per rx protocol 04/19/20 08:45 05/19/20 08:44 Vancomycin HCl 1 gm/Sodium Chloride 275 ml @ 183.708 mls/hr Q12HR@1000,2200 IVPB 04/20/20 22:00 04/25/20 21:59 04/22/20 22:30 Assessment/Plan Assessment/Plan IMPRESSION: 1. Negative COVID-19 pneumonia. 2. Recurrent seizures. 3. Medication noncompliance. 4. CVA. 5. [facility] resident. DISCUSSION: Continue medications for seizures. Currently, Keppra would be appropriate 500 mg twice a day. DVT prophylaxis. I will follow. Eddie Miller Omar Syed MD Apr 23, 2020 09:03
[2020-04-23 09:39] LABS: BASOPHILS % (AUTO) 0.8 % (0.0-2.0); EOSINOPHILS % (AUTO) 0.5 % (0.0-3.0); HEMATOCRIT 46.9 % (42.0-52.0); LYMPHOCYTES % (AUTO) 14.1 % (20.0-45.0); MEAN CORPUSCULAR VOLUME 95 FL (80-99); MONOCYTES % (AUTO) 5.7 % (1.0-10.0); PLATELET COUNT 239 K/UL (150-450); RED BLOOD COUNT 4.92 M/UL (4.70-6.10); RED CELL DISTRIBUTION WIDTH 11.1 % (11.6-14.8); WHITE BLOOD COUNT 10.9 K/UL (4.8-10.8)
--- NOTE | 2020-04-23 09:45 | Cardiology Progress Note ---
Assessment/Plan Status: progressing Status Narrative Improving, hemodynamically stable Transferrred to 4th floor, transitioned to PO Cardizem for rate and rhythm control Assessment/Plan 1. Seizure disorder with recent seizure, on Keppra 2. HTN, under better control 3. Afib/aflutter, converted to SR on diltiazem - rate controlled Lovenox for AC during hospitalization not a good candidate for DOAC due to seizure activity and increased risk of bleeding 4. HFpEF, acute on chronic diastolic HF IV Lasix for diuresis Subjective ROS Limited/Unobtainable: Yes Cardiovascular: Reports: no symptoms Subjective no acute events, resting comfortably Objective Last 24 Hour Vital Signs Date Time Temp Pulse Resp B/P (MAP) Pulse Ox O2 Delivery O2 Flow Rate FiO2 04/23/20 06:01 154/87 04/23/20 05:00 73 142/71 04/23/20 04:00 97.5 75 18 143/71 (95) 97 04/23/20 02:09 81 153/77 04/22/20 23:16 98.1 88 20 140/77 (98) 98 04/22/20 22:46 89 157/91 04/22/20 22:15 89 157/91 04/22/20 22:15 157/91 04/22/20 21:00 Nasal Cannula 4.0 04/22/20 20:00 98.2 89 20 157/91 (113) 96 04/22/20 20:00 87 04/22/20 17:52 72 127/86 04/22/20 16:00 72 04/22/20 16:00 97.0 72 20 127/86 (100) 96 04/22/20 14:20 129/80 04/22/20 13:54 82 129/80 04/22/20 12:00 82 04/22/20 12:00 98.2 82 20 129/80 (96) 97 General Appearance: no apparent distress EENT: normal ENT inspection Neck: non-tender, no JVD Rhythm: NSR Cardiovascular: normal rate, regular rhythm Respiratory/Chest: no respiratory distress, no accessory muscle use, decreased breath sounds Abdomen: normal bowel sounds, soft Intake and Output 04/22/20 04/23/20 19:00 07:00 Intake Total 20 ml 20 ml Output Total 400 ml 300 ml Balance -380 ml -280 ml Intake Oral 20 ml 20 ml Output Urine Total 400 ml 300 ml # Voids 3 # Bowel Movements 1 Laboratory Tests Test 04/22/20 11:46 04/22/20 17:42 04/22/20 23:01 04/23/20 06:26 POC Whole Blood Glucose 172 MG/DL (74-106) H 147 MG/DL (74-106) H Pending 166 MG/DL (74-106) H Test 04/23/20 09:10 White Blood Count Pending Red Blood Count Pending Hemoglobin Pending Hematocrit Pending Mean Corpuscular Volume Pending Mean Corpuscular Hemoglobin Pending Mean Corpuscular Hemoglobin Concent Pending Red Cell Distribution Width Pending Platelet Count Pending Mean Platelet Volume Pending Neutrophils (%) (Auto) Pending Lymphocytes (%) (Auto) Pending Monocytes (%) (Auto) Pending Eosinophils (%) (Auto) Pending Basophils (%) (Auto) Pending Sodium Level Pending Potassium Level Pending Chloride Level Pending Carbon Dioxide Level Pending Blood Urea Nitrogen Pending Creatinine Pending Estimat Glomerular Filtration Rate Pending Glucose Level Pending Uric Acid Pending Calcium Level Pending Phosphorus Level Pending Magnesium Level Pending Total Bilirubin Pending Aspartate Amino Transf (AST/SGOT) Pending Alanine Aminotransferase (ALT/SGPT) Pending Alkaline Phosphatase Pending Total Protein Pending Albumin Pending Globulin Pending Vancomycin Level Trough Pending Larissa Tavares PA-C Apr 23, 2020 09:45
[2020-04-23 09:58] LABS: ALANINE AMINOTRANSFERASE 234 U/L (12-78); ALBUMIN 4.2 G/DL (3.4-5.0); ALBUMIN/GLOBULIN RATIO 0.9 (1.0-2.7); ALKALINE PHOSPHATASE 90 U/L (46-116); ANION GAP 12 mmol/L (5-15); ASPARTATE AMINO TRANSFERASE 107 U/L (15-37); BILIRUBIN,TOTAL 2.6 MG/DL (0.2-1.0); BLOOD UREA NITROGEN 11 mg/dL (7-18); CALCIUM 9.5 MG/DL (8.5-10.1); CARBON DIOXIDE 24 MMOL/L (21-32); CHLORIDE 100 MMOL/L (98-107); PHOSPHORUS 3.2 MG/DL (2.5-4.9); POTASSIUM 3.8 MMOL/L (3.5-5.1); SODIUM 136 MMOL/L (136-145)
[2020-04-23] MEDS: Pantoprazole Inj IVP SCH (10:04)
[2020-04-23] MEDS: Enoxaparin 60mg Inj SUBQ SCH ×2 (10:06→22:10)
[2020-04-23] MEDS: Nitroglycerin 2% oint pkt TOPIC SCH (10:06)
[2020-04-23 10:07] LABS: BILIRUBIN,DIRECT 0.5 MG/DL (0.0-0.3)
[2020-04-23] MEDS: dilTIAZem HCl 30mg tab ORAL SCH ×2 (10:08→22:08)
[2020-04-23] MEDS: Lisinopril 10mg tab ORAL SCH (10:09)
[2020-04-23] MEDS: levETIRAcetam 500mg/NS100ml 100 ML IVPB SCH ×2 (10:13→21:47)
[2020-04-23] MEDS: Vancomycin 1 GM in NS 275 ML IVPB SCH (10:14)
[2020-04-23 12:00] VITALS: BP 150/87
[2020-04-23 16:00] VITALS: BP 147/89
[2020-04-23 20:00] VITALS: BP 145/91
--- NOTE | 2020-04-23 20:01 | Infectious Diseases Prog Note ---
Assessment/Plan Problems: (1) Suspected 2019 novel coronavirus infection Assessment & Plan: was ruled out with negative PCR test , MAY DISCONTINUE isolation for now (2) Fever Assessment & Plan: resolved , suspect due to UTI already on aztreonam (3) Recurrent seizures Assessment & Plan: reloaded with meds, watch out for breakthrough , neurology eval, aspiration precaution (4) Hypoxemia requiring supplemental oxygen Assessment & Plan: rule out viral etiology with negative CXR for infiltration , await COVID 19 PCR test to confirm, influenza A&B are both negative. keep in isolation, monitor CXR and ABG (5) Pseudomonas urinary tract infection Assessment & Plan: continue aztreonam for 7 days Subjective ROS Limited/Unobtainable: Yes Allergies: Coded Allergies: No Known Allergies (Unverified , 04/18/20) he was lying in bed lethargic and minimally responsive, had no fever or chills, no cough or shortness of breath and no diarrhea. Objective Last 24 Hour Vital Signs Date Time Temp Pulse Resp B/P (MAP) Pulse Ox O2 Delivery O2 Flow Rate FiO2 04/23/20 16:00 98.4 96 16 147/89 (108) 96 04/23/20 13:31 150/87 04/23/20 12:00 98.1 86 18 150/87 (108) 97 04/23/20 10:09 155/76 04/23/20 10:08 81 155/76 04/23/20 10:06 155/76 04/23/20 10:04 81 155/76 04/23/20 09:00 Room Air 4.0 04/23/20 08:00 98.8 81 18 155/76 (102) 97 04/23/20 06:01 154/87 04/23/20 05:00 73 142/71 04/23/20 04:00 97.5 75 18 143/71 (95) 97 04/23/20 02:09 81 153/77 04/22/20 23:16 98.1 88 20 140/77 (98) 98 04/22/20 22:46 89 157/91 04/22/20 22:15 89 157/91 04/22/20 22:15 157/91 04/22/20 21:00 Nasal Cannula 4.0 04/22/20 20:00 98.2 89 20 157/91 (113) 96 04/22/20 20:00 87 Height (Feet): 5 Height (Inches): 5.00 Weight (Pounds): 134 General Appearance: WD/WN, no acute distress HEENT: normocephalic, atraumatic, anicteric, mucous membranes moist, PERRL Respiratory/Chest: chest wall non-tender, lungs clear, normal breath sounds, no respiratory distress, no accessory muscle use Cardiovascular: normal peripheral pulses, normal rate, no gallop/murmur, no JVD Abdomen: normal bowel sounds, soft, non tender, no organomegaly, non distended, no mass, no scars Genitourinary: normal external genitalia Extremities: no cyanosis, no clubbing Skin: no rash, no lesions, no ulcers 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, alert Lymphatic: no neck adenopathy, no groin adenopathy Musculoskeletal: normal muscle bulk, no effusion Laboratory Tests Test 04/22/20 23:01 04/23/20 06:26 04/23/20 09:10 04/23/20 11:00 POC Whole Blood Glucose Pending 166 MG/DL (74-106) H White Blood Count 10.9 K/UL (4.8-10.8) H Red Blood Count 4.92 M/UL (4.70-6.10) Hemoglobin 16.0 G/DL (14.2-18.0) Hematocrit 46.9 % (42.0-52.0) Mean Corpuscular Volume 95 FL (80-99) Mean Corpuscular Hemoglobin 32.6 PG (27.0-31.0) H Mean Corpuscular Hemoglobin Concent 34.2 G/DL (32.0-36.0) Red Cell Distribution Width 11.1 % (11.6-14.8) L Platelet Count 239 K/UL (150-450) Mean Platelet Volume 6.9 FL (6.5-10.1) Neutrophils (%) (Auto) 79.0 % (45.0-75.0) H Lymphocytes (%) (Auto) 14.1 % (20.0-45.0) L Monocytes (%) (Auto) 5.7 % (1.0-10.0) Eosinophils (%) (Auto) 0.5 % (0.0-3.0) Basophils (%) (Auto) 0.8 % (0.0-2.0) Sodium Level 136 MMOL/L (136-145) Potassium Level 3.8 MMOL/L (3.5-5.1) Chloride Level 100 MMOL/L (98-107) Carbon Dioxide Level 24 MMOL/L (21-32) Anion Gap 12 mmol/L (5-15) Blood Urea Nitrogen 11 mg/dL (7-18) Creatinine 1.0 MG/DL (0.55-1.30) Estimat Glomerular Filtration Rate > 60 mL/min (>60) Glucose Level 110 MG/DL (74-106) H Uric Acid 5.1 MG/DL (2.6-7.2) Calcium Level 9.5 MG/DL (8.5-10.1) Phosphorus Level 3.2 MG/DL (2.5-4.9) Magnesium Level 2.1 MG/DL (1.8-2.4) Total Bilirubin 2.6 MG/DL (0.2-1.0) H Direct Bilirubin 0.5 MG/DL (0.0-0.3) H Aspartate Amino Transf (AST/SGOT) 107 U/L (15-37) H Alanine Aminotransferase (ALT/SGPT) 234 U/L (12-78) H Alkaline Phosphatase 90 U/L (46-116) Total Protein 9.0 G/DL (6.4-8.2) #H Albumin 4.2 G/DL (3.4-5.0) Globulin 4.8 g/dL Albumin/Globulin Ratio 0.9 (1.0-2.7) L Vancomycin Level Trough 0.3 ug/mL (5.0-12.0) L 11.3 ug/mL (5.0-12.0) Test 04/23/20 13:13 04/23/20 16:30 POC Whole Blood Glucose 159 MG/DL (74-106) H 245 MG/DL (74-106) H Current Medications Medications (Trade) Dose Ordered Sig/[place] Route PRN Reason Start Time Stop Time Status Last Admin Dose Admin Aztreonam 2 gm/ Dextrose 110 ml @ 220 mls/hr Q8HR IVPB 04/19/20 11:00 04/26/20 10:59 04/23/20 13:32 Barium Sulfate (Varibar Honey) 250 ml NOW PRN MC RAD 04/22/20 16:15 04/25/20 16:13 Barium Sulfate (Varibar [place]) 240 ml NOW PRN RAD 04/22/20 16:15 04/25/20 16:13 Barium Sulfate (Varibar [place]ud[place]) 230 ml NOW PRN RAD 04/22/20 16:15 04/25/20 16:13 Barium Sulfate (Varibar Thin Liquid powder) 148 gm NOW PRN RAD 04/22/20 16:15 04/25/20 16:13 Chlorhexidine Gluconate (Haylie-Hex 2%) 1 applic DAILY@2000 TOPIC 04/22/20 20:00 07/21/20 19:59 04/22/20 22:15 Dextrose (Dextrose 50%) 25 ml Q30M PRN IV Hypoglycemia 04/19/20 07:30 07/18/20 07:29 Dextrose (Dextrose 50%) 50 ml Q30M PRN IV Hypoglycemia 04/19/20 07:30 07/18/20 07:29 Diltiazem HCl (Cardizem Tab) 30 mg EVERY 12 HOURS ORAL 04/23/20 09:30 05/23/20 09:29 04/23/20 10:08 Enoxaparin Sodium (Lovenox) 60 mg EVERY 12 HOURS SUBQ 04/19/20 09:00 07/18/20 08:59 04/23/20 10:06 Folic Acid (Folate) 3 mg DAILY ORAL 04/21/20 09:00 05/21/20 08:59 04/23/20 10:02 Furosemide (Lasix) 40 mg DAILY IV 04/24/20 09:00 05/24/20 08:59 Hydralazine HCl (Apresoline) 50 mg Q8HR ORAL 04/20/20 16:48 07/19/20 16:47 04/23/20 13:31 Insulin Aspart (NovoLOG) BEFORE MEALS AND HS SUBQ 04/19/20 11:30 07/18/20 11:29 04/23/20 18:36 Levetiracetam 100 ml @ 400 mls/hr Q12HR IVPB 04/19/20 00:00 07/18/20 00:00 04/23/20 10:13 Lisinopril (ZestriL) 10 mg DAILY ORAL 04/23/20 09:30 05/23/20 09:29 04/23/20 10:09 Lorazepam (Ativan 2mg/ml 1ml) 1 mg Q1H PRN IV For Seizures 04/19/20 00:30 04/26/20 00:29 Metoprolol Tartrate (Lopressor) 25 mg Q12HR ORAL 04/20/20 21:00 07/19/20 20:59 04/23/20 10:04 Nitroglycerin (Nitro-Bid) 1 inch DAILY TOPIC 04/19/20 09:30 05/19/20 09:29 04/23/20 10:06 Pantoprazole (Protonix) 40 mg DAILY IVP 04/19/20 09:00 05/19/20 08:59 04/23/20 10:04 Spironolactone (Aldactone) 25 mg BEFORE BREAKFAST ORAL 04/21/20 06:30 05/21/20 06:29 04/23/20 06:01 Tramadol HCl (Ultram) 25 mg BID PRN ORAL For Pain 04/19/20 01:45 04/25/20 22:59 Vancomycin HCl 250 ml @ 166.667 mls/hr Q12H IVPB 04/23/20 22:00 04/28/20 21:59 [facility] 1 ea DAILY PRN MISC Per rx protocol 04/19/20 08:45 05/19/20 08:44 Hermann Blue M.D. Apr 23, 2020 20:01
[2020-04-23] MEDS: Dyna-Hex 2% Top Sol 2oz TOPIC SCH (22:07)
[2020-04-23] MEDS: Vancomycin 1.25gm/250ml Premix IVPB SCH (23:21)
[2020-04-24 01:00] VITALS: BP 171/91
[2020-04-24] MEDS: HydrALAZINE 50mg tab ORAL SCH ×4 (01:08→22:00)
[2020-04-24 04:00] VITALS: BP 124/83
[2020-04-24] MEDS: Aztreonam Inj 2 GM in D5W 110 ML IVPB SCH ×3 (05:38→22:05)
[2020-04-24] MEDS: Spironolactone 25mg tab ORAL SCH (06:07)
[2020-04-24] MEDS: NovoLOG Insulin Flexpen SUBQ SCH ×4 (06:18→22:00)
[2020-04-24] MEDS: Pantoprazole Inj IVP SCH (08:23)
[2020-04-24] MEDS: Nitroglycerin 2% oint pkt TOPIC SCH (08:25)
[2020-04-24] MEDS: levETIRAcetam 500mg/NS100ml 100 ML IVPB SCH ×2 (08:29→21:44)
[2020-04-24] MEDS: dilTIAZem HCl 30mg tab ORAL SCH ×2 (08:30→21:45)
[2020-04-24] MEDS: Lisinopril 10mg tab ORAL SCH (08:30)
[2020-04-24] MEDS: Enoxaparin 60mg Inj SUBQ SCH ×2 (08:31→22:00)
[2020-04-24] MEDS: Vancomycin 1.25gm/250ml Premix IVPB SCH (09:04)
--- NOTE | 2020-04-24 09:08 | Nephrology Progress Note ---
Assessment/Plan Problem List: (1) Hypokalemia (2) Suspected 2019 novel coronavirus infection (3) Recurrent seizures (4) Elevated troponin I level Assessment Electrolyte imbalance Recurrent seizures. Medication noncompliance. CVA. senior care resident. Elevated troponin I Plan April 24: No labs drawn today. Yesterday's labs reviewed. Stable from renal standpoint of view. Continue per consultants. April 23: Today's labs not drawn yet. Meds reviewed. Continue per consultants. April 22: Blood pressure better controlled. Half-normal saline IV fluid discontinued. Continue to monitor electrolytes. Low magnesium replaced. Continue per consultants. Previously: Add Zestril for better BP control. Reviewed blood pressure medications. Magnesium, phosphorus, potassium chloride supplement as needed Monitor electrolytes Continue per consultants Subjective ROS Limited/Unobtainable: No Constitutional: Reports: malaise Objective Objective Last 24 Hour Vital Signs Date Time Temp Pulse Resp B/P (MAP) Pulse Ox O2 Delivery O2 Flow Rate FiO2 04/24/20 08:30 124/83 04/24/20 08:30 106 124/83 04/24/20 08:30 106 124/83 04/24/20 08:25 124/83 04/24/20 05:38 124/83 04/24/20 04:00 98.2 106 20 124/83 (97) 96 04/24/20 01:08 171/91 04/24/20 01:00 97.3 85 18 171/91 (117) 96 04/23/20 22:08 104 145/91 04/23/20 22:07 104 145/91 04/23/20 21:00 Room Air 04/23/20 20:00 97.3 104 18 145/91 (109) 96 04/23/20 16:00 98.4 96 16 147/89 (108) 96 04/23/20 13:31 150/87 04/23/20 12:00 98.1 86 18 150/87 (108) 97 04/23/20 10:09 155/76 04/23/20 10:08 81 155/76 04/23/20 10:06 155/76 04/23/20 10:04 81 155/76 Intake and Output 04/23/20 04/24/20 19:00 07:00 Intake Total 485.0 ml 460.000 ml Output Total 300 ml 1200 ml Balance 185.0 ml -740.000 ml IV Total 485.0 ml 460.000 ml Output Urine Total 300 ml 1200 ml # Bowel Movements 1 Laboratory Tests 04/23/20 09:10: White Blood Count 10.9H, Red Blood Count 4.92, Hemoglobin 16.0, Hematocrit 46.9, Mean Corpuscular Volume 95, Mean Corpuscular Hemoglobin 32.6H, Mean Corpuscular Hemoglobin Concent 34.2, Red Cell Distribution Width 11.1L, Platelet Count 239, Mean Platelet Volume 6.9, Neutrophils (%) (Auto) 79.0H, Lymphocytes (%) (Auto) 14.1L, Monocytes (%) (Auto) 5.7, Eosinophils (%) (Auto) 0.5, Basophils (%) (Auto) 0.8, Sodium Level 136, Potassium Level 3.8, Chloride Level 100, Carbon Dioxide Level 24, Anion Gap 12, Blood Urea Nitrogen 11, Creatinine 1.0, Estimat Glomerular Filtration Rate > 60, Glucose Level 110H, Uric Acid 5.1, Calcium Level 9.5, Phosphorus Level 3.2, Magnesium Level 2.1, Total Bilirubin 2.6H, Direct Bilirubin 0.5H, Aspartate Amino Transf (AST/SGOT) 107H, Alanine Aminotransferase (ALT/SGPT) 234H, Alkaline Phosphatase 90, Total Protein 9.0#H, Albumin 4.2, Globulin 4.8, Albumin/Globulin Ratio 0.9L, Vancomycin Level Trough 0.3L 04/23/20 11:00: Vancomycin Level Trough 11.3 04/23/20 13:13: POC Whole Blood Glucose 159H 04/23/20 16:30: POC Whole Blood Glucose 245H 04/23/20 21:55: POC Whole Blood Glucose [Pending] 04/24/20 06:16: POC Whole Blood Glucose 186H Height (Feet): 5 Height (Inches): 5.00 Weight (Pounds): 134 General Appearance: no apparent distress Cardiovascular: tachycardia Respiratory/Chest: decreased breath sounds Objective No change Reymundo Doyle MD Apr 24, 2020 09:08
[2020-04-24 09:10] VITALS: BP 118/88
--- NOTE | 2020-04-24 09:32 | Pulmonology Progress Note ---
Subjective ROS Limited/Unobtainable: No Interval Events: None new Constitutional: Reports: no symptoms HEENT: Repors: no symptoms Respiratory: Reports: no symptoms Cardiovascular: Reports: no symptoms Gastrointestinal/Abdominal: Reports: no symptoms Allergies: Coded Allergies: No Known Allergies (Unverified , 04/18/20) Objective Last 24 Hour Vital Signs Date Time Temp Pulse Resp B/P (MAP) Pulse Ox O2 Delivery O2 Flow Rate FiO2 04/24/20 09:10 99.3 89 18 118/88 (98) 97 04/24/20 08:30 124/83 04/24/20 08:30 106 124/83 04/24/20 08:30 106 124/83 04/24/20 08:25 124/83 04/24/20 05:38 124/83 04/24/20 04:00 98.2 106 20 124/83 (97) 96 04/24/20 01:08 171/91 04/24/20 01:00 97.3 85 18 171/91 (117) 96 04/23/20 22:08 104 145/91 04/23/20 22:07 104 145/91 04/23/20 21:00 Room Air 04/23/20 20:00 97.3 104 18 145/91 (109) 96 04/23/20 16:00 98.4 96 16 147/89 (108) 96 04/23/20 13:31 150/87 04/23/20 12:00 98.1 86 18 150/87 (108) 97 04/23/20 10:09 155/76 04/23/20 10:08 81 155/76 04/23/20 10:06 155/76 04/23/20 10:04 81 155/76 Intake and Output 04/23/20 04/24/20 19:00 07:00 Intake Total 485.0 ml 460.000 ml Output Total 300 ml 1200 ml Balance 185.0 ml -740.000 ml IV Total 485.0 ml 460.000 ml Output Urine Total 300 ml 1200 ml # Bowel Movements 1 General Appearance: no acute distress HEENT: normocephalic Respiratory: chest wall non-tender, lungs clear Cardiovascular: normal peripheral pulses Abdomen: normal bowel sounds Laboratory Tests 04/23/20 11:00: Vancomycin Level Trough 11.3 04/23/20 13:13: POC Whole Blood Glucose 159H 04/23/20 16:30: POC Whole Blood Glucose 245H 04/23/20 21:55: POC Whole Blood Glucose [Pending] 04/24/20 06:16: POC Whole Blood Glucose 186H Current Medications Medications (Trade) Dose Ordered Sig/Kamron Route PRN Reason Start Time Stop Time Status Last Admin Dose Admin Aztreonam 2 gm/ Dextrose 110 ml @ 220 mls/hr Q8HR IVPB 04/19/20 11:00 04/26/20 10:59 04/23/20 22:34 Barium Sulfate (Varibar Honey) 250 ml NOW PRN RAD 04/22/20 16:15 04/25/20 16:13 Barium Sulfate (Varibar [place]) 240 ml NOW PRN RAD 04/22/20 16:15 04/25/20 16:13 Barium Sulfate (Varibar Pudding) 230 ml NOW PRN RAD 04/22/20 16:15 04/25/20 16:13 Barium Sulfate (Varibar Thin Liquid powder) 148 gm NOW PRN RAD 04/22/20 16:15 04/25/20 16:13 Chlorhexidine Gluconate (Haylei-Hex 2%) 1 applic DAILY@2000 TOPIC 04/22/20 20:00 07/21/20 19:59 04/23/20 22:07 Dextrose (Dextrose 50%) 25 ml Q30M PRN IV Hypoglycemia 04/19/20 07:30 07/18/20 07:29 Dextrose (Dextrose 50%) 50 ml Q30M PRN IV Hypoglycemia 04/19/20 07:30 07/18/20 07:29 Diltiazem HCl (Cardizem Tab) 30 mg EVERY 12 HOURS ORAL 04/23/20 09:30 05/23/20 09:29 04/24/20 08:30 Enoxaparin Sodium (Lovenox) 60 mg EVERY 12 HOURS SUBQ 04/19/20 09:00 07/18/20 08:59 04/24/20 08:31 Folic Acid (Folate) 3 mg DAILY ORAL 04/21/20 09:00 05/21/20 08:59 04/24/20 08:32 Furosemide (Lasix) 40 mg DAILY IV 04/24/20 09:00 05/24/20 08:59 04/24/20 08:27 Hydralazine HCl (Apresoline) 50 mg Q8HR ORAL 04/20/20 16:48 07/19/20 16:47 04/24/20 01:08 Insulin Aspart (NovoLOG) BEFORE MEALS AND HS SUBQ 04/19/20 11:30 07/18/20 11:29 04/24/20 06:18 Levetiracetam 100 ml @ 400 mls/hr Q12HR IVPB 04/19/20 00:00 07/18/20 00:00 04/24/20 08:29 Lisinopril (ZestriL) 10 mg DAILY ORAL 04/23/20 09:30 05/23/20 09:29 04/24/20 08:30 Lorazepam (Ativan 2mg/ml 1ml) 1 mg Q1H PRN IV For Seizures 04/19/20 00:30 04/26/20 00:29 Metoprolol Tartrate (Lopressor) 25 mg Q12HR ORAL 04/20/20 21:00 07/19/20 20:59 04/24/20 08:30 Nitroglycerin (Nitro-Bid) 1 inch DAILY TOPIC 04/19/20 09:30 05/19/20 09:29 04/24/20 08:25 Pantoprazole (Protonix) 40 mg DAILY IVP 04/19/20 09:00 05/19/20 08:59 04/24/20 08:23 Spironolactone (Aldactone) 25 mg BEFORE BREAKFAST ORAL 04/21/20 06:30 05/21/20 06:29 04/24/20 06:07 Tramadol HCl (Ultram) 25 mg BID PRN ORAL For Pain 04/19/20 01:45 04/25/20 22:59 Vancomycin HCl 250 ml @ 166.667 mls/hr Q12H IVPB 04/23/20 22:00 04/28/20 21:59 04/24/20 09:04 Vancomycin HCl ([facility] pharmacy to dose) 1 ea DAILY PRN MISC Per rx protocol 04/19/20 08:45 05/19/20 08:44 Assessment/Plan Assessment/Plan IMPRESSION: 1. Negative COVID-19 pneumonia. 2. Recurrent seizures. 3. Medication noncompliance. 4. CVA. 5. residential resident. DISCUSSION: Continue medications for seizures. DVT prophylaxis. I will follow as needed. Eddie Miller Omar Syed MD Apr 24, 2020 09:32
--- NOTE | 2020-04-24 09:59 | General Progress Note ---
Subjective Allergies: Coded Allergies: No Known Allergies (Unverified , 04/18/20) Objective Last 24 Hour Vital Signs Date Time Temp Pulse Resp B/P (MAP) Pulse Ox O2 Delivery O2 Flow Rate FiO2 04/24/20 09:10 99.3 89 18 118/88 (98) 97 04/24/20 08:30 124/83 04/24/20 08:30 106 124/83 04/24/20 08:30 106 124/83 04/24/20 08:30 Room Air 04/24/20 08:25 124/83 04/24/20 05:38 124/83 04/24/20 04:00 98.2 106 20 124/83 (97) 96 04/24/20 01:08 171/91 04/24/20 01:00 97.3 85 18 171/91 (117) 96 04/23/20 22:08 104 145/91 04/23/20 22:07 104 145/91 04/23/20 21:00 Room Air 04/23/20 20:00 97.3 104 18 145/91 (109) 96 04/23/20 16:00 98.4 96 16 147/89 (108) 96 04/23/20 13:31 150/87 04/23/20 12:00 98.1 86 18 150/87 (108) 97 04/23/20 10:09 155/76 04/23/20 10:08 81 155/76 04/23/20 10:06 155/76 04/23/20 10:04 81 155/76 Intake and Output 04/23/20 04/24/20 19:00 07:00 Intake Total 485.0 ml 460.000 ml Output Total 300 ml 1200 ml Balance 185.0 ml -740.000 ml IV Total 485.0 ml 460.000 ml Output Urine Total 300 ml 1200 ml # Bowel Movements 1 Laboratory Tests 04/23/20 11:00: Vancomycin Level Trough 11.3 04/23/20 13:13: POC Whole Blood Glucose 159H 04/23/20 16:30: POC Whole Blood Glucose 245H 04/23/20 21:55: POC Whole Blood Glucose [Pending] 04/24/20 06:16: POC Whole Blood Glucose 186H Height (Feet): 5 Height (Inches): 5.00 Weight (Pounds): 134 Assessment/Plan Status: progressing Assessment/Plan: S, O: Limited, patient is awake, poor historian PHYSICAL EXAMINATION:HEAD AND NECK: Atraumatic and normocephalic. CHEST: Diffuse bronchial breathing sounds.HEART: S1 and S2. Irregular rate and rhythm. ABDOMEN: Soft. No organomegaly.MUSCULOSKELETAL: Spontaneous movement in all four extremities. Limited evaluation.NEUROLOGY: The patient is delirious. Meds: reviewed and reconciled ASSESSMENT: 1. Sepsis 2. UTI- Pseudomonas 3. Dysphagia 4. Breakthrough seizure secondary to noncompliance with medications. 2. Leukocytosis, likely reactive. 3. Chronic anemia. 4. Hypokalemia. 5. Diabetes type 2. 6. Abnormal troponin. 7. Atrial flutter. 8. GI and DVT prophylaxis. 9. We will continue with antiepileptic medication. 10. Continue with neuro checks. 11. We will start the patient on aspirin. 12. We will monitor off the antibiotic for now. 13. Obtain 2D echo. Plan: off isolation per ID, Pending COVID-PCR test High Troponin levels, followup with cardiology Dysphagia, pending Video swallow David Kaplan MD Apr 24, 2020 09:59
[2020-04-24 12:30] VITALS: BP 118/87
[2020-04-24 16:00] VITALS: BP 121/72
--- NOTE | 2020-04-24 19:33 | Infectious Diseases Prog Note ---
Assessment/Plan Problems: (1) Suspected 2019 novel coronavirus infection Assessment & Plan: was ruled out with negative PCR test , MAY DISCONTINUE isolation for now (2) Fever Assessment & Plan: resolved , suspect due to UTI already on aztreonam (3) Recurrent seizures Assessment & Plan: reloaded with meds, watch out for breakthrough , neurology eval, aspiration precaution (4) Hypoxemia requiring supplemental oxygen Assessment & Plan: with negative COVID 19 PER pcr and negative CXR for infiltration , influenza A&B are both negative. may discontinue isolation, monitor CXR and ABG (5) Pseudomonas urinary tract infection Assessment & Plan: continue aztreonam for 7 days Subjective ROS Limited/Unobtainable: Yes Allergies: Coded Allergies: No Known Allergies (Unverified , 04/18/20) he was lying in bed lethargic and unresponsive to verbal commands , had no fever or chills, no cough or shortness of breath and no diarrhea. Objective Last 24 Hour Vital Signs Date Time Temp Pulse Resp B/P (MAP) Pulse Ox O2 Delivery O2 Flow Rate FiO2 04/24/20 16:00 98.1 81 18 121/72 (88) 98 04/24/20 14:23 118/87 04/24/20 12:30 98.9 79 18 118/87 (97) 98 04/24/20 09:10 99.3 89 18 118/88 (98) 97 04/24/20 08:30 124/83 04/24/20 08:30 106 124/83 04/24/20 08:30 106 124/83 04/24/20 08:30 Room Air 04/24/20 08:25 124/83 04/24/20 05:38 124/83 04/24/20 04:00 98.2 106 20 124/83 (97) 96 04/24/20 01:08 171/91 04/24/20 01:00 97.3 85 18 171/91 (117) 96 04/23/20 22:08 104 145/91 04/23/20 22:07 104 145/91 04/23/20 21:00 Room Air 04/23/20 20:00 97.3 104 18 145/91 (109) 96 Height (Feet): 5 Height (Inches): 5.00 Weight (Pounds): 134 General Appearance: WD/WN, no acute distress HEENT: normocephalic, atraumatic, anicteric, mucous membranes moist, PERRL Respiratory/Chest: chest wall non-tender, lungs clear, normal breath sounds, no respiratory distress, no accessory muscle use Cardiovascular: normal peripheral pulses, normal rate, regular rhythm, no gallop/murmur, no JVD Abdomen: normal bowel sounds, soft, non tender, no organomegaly, non distended, no mass, no scars Genitourinary: normal external genitalia Extremities: no cyanosis, no clubbing Skin: no rash, no lesions Neurologic/Psychiatric: alert, unresponsiveness Lymphatic: no neck adenopathy, no groin adenopathy Musculoskeletal: normal muscle bulk, no effusion Laboratory Tests Test 04/23/20 21:55 04/24/20 06:16 04/24/20 11:06 04/24/20 15:58 POC Whole Blood Glucose Pending 186 MG/DL (74-106) H 183 MG/DL (74-106) H 137 MG/DL (74-106) H Current Medications Medications (Trade) Dose Ordered Sig/Kamron Route PRN Reason Start Time Stop Time Status Last Admin Dose Admin Aztreonam 2 gm/ Dextrose 110 ml @ 220 mls/hr Q8HR IVPB 04/19/20 11:00 04/26/20 10:59 04/24/20 13:12 Barium Sulfate (Varibar Honey) 250 ml NOW PRN MC RAD 04/22/20 16:15 04/25/20 16:13 Barium Sulfate (Varibar [place]) 240 ml NOW PRN MC RAD 04/22/20 16:15 04/25/20 16:13 Barium Sulfate (Varibar Pudding) 230 ml NOW PRN MC RAD 04/22/20 16:15 04/25/20 16:13 Barium Sulfate (Varibar Thin Liquid powder) 148 gm NOW PRN MC RAD 04/22/20 16:15 04/25/20 16:13 Chlorhexidine Gluconate (Haylie-Hex 2%) 1 applic DAILY@2000 TOPIC 04/22/20 20:00 07/21/20 19:59 04/23/20 22:07 Dextrose (Dextrose 50%) 25 ml Q30M PRN IV Hypoglycemia 04/19/20 07:30 07/18/20 07:29 Dextrose (Dextrose 50%) 50 ml Q30M PRN IV Hypoglycemia 04/19/20 07:30 07/18/20 07:29 Diltiazem HCl (Cardizem Tab) 30 mg EVERY 12 HOURS ORAL 04/23/20 09:30 05/23/20 09:29 04/24/20 08:30 Enoxaparin Sodium (Lovenox) 60 mg EVERY 12 HOURS SUBQ 04/19/20 09:00 07/18/20 08:59 04/24/20 08:31 Folic Acid (Folate) 3 mg DAILY ORAL 04/21/20 09:00 05/21/20 08:59 04/24/20 08:32 Furosemide (Lasix) 40 mg DAILY IV 04/24/20 09:00 05/24/20 08:59 04/24/20 08:27 Hydralazine HCl (Apresoline) 50 mg Q8HR ORAL 04/20/20 16:48 07/19/20 16:47 04/24/20 14:23 Insulin Aspart (NovoLOG) BEFORE MEALS AND HS SUBQ 04/19/20 11:30 07/18/20 11:29 04/24/20 11:09 Levetiracetam 100 ml @ 400 mls/hr Q12HR IVPB 04/19/20 00:00 07/18/20 00:00 04/24/20 08:29 Lisinopril (ZestriL) 10 mg DAILY ORAL 04/23/20 09:30 05/23/20 09:29 04/24/20 08:30 Lorazepam (Ativan 2mg/ml 1ml) 1 mg Q1H PRN IV For Seizures 04/19/20 00:30 04/26/20 00:29 Metoprolol Tartrate (Lopressor) 25 mg Q12HR ORAL 04/20/20 21:00 07/19/20 20:59 04/24/20 08:30 Nitroglycerin (Nitro-Bid) 1 inch DAILY TOPIC 04/19/20 09:30 05/19/20 09:29 04/24/20 08:25 Pantoprazole (Protonix) 40 mg DAILY IVP 04/19/20 09:00 05/19/20 08:59 04/24/20 08:23 Spironolactone (Aldactone) 25 mg BEFORE BREAKFAST ORAL 04/21/20 06:30 05/21/20 06:29 04/24/20 06:07 Tramadol HCl (Ultram) 25 mg BID PRN ORAL For Pain 04/19/20 01:45 04/25/20 22:59 Vancomycin HCl 250 ml @ 166.667 mls/hr Q12H IVPB 04/23/20 22:00 04/28/20 21:59 04/24/20 09:04 Vancomycin HCl ([facility] pharmacy to dose) 1 ea DAILY PRN MISC Per rx protocol 04/19/20 08:45 05/19/20 08:44 Hermann Blue M.D. Apr 24, 2020 19:33
[2020-04-24 20:00] VITALS: BP 140/83
[2020-04-24] MEDS: Dyna-Hex 2% Top Sol 2oz TOPIC SCH (21:45)
[2020-04-25] VITALS: BP 148/80
[2020-04-25 04:00] VITALS: BP 158/82
[2020-04-25] MEDS: Aztreonam Inj 2 GM in D5W 110 ML IVPB SCH ×3 (05:17→21:33)
[2020-04-25] MEDS: Spironolactone 25mg tab ORAL SCH (06:14)
[2020-04-25] MEDS: HydrALAZINE 50mg tab ORAL SCH ×3 (06:14→21:33)
[2020-04-25] MEDS: NovoLOG Insulin Flexpen SUBQ SCH ×4 (06:18→20:15)
[2020-04-25 08:00] VITALS: BP 123/69
[2020-04-25 08:36] LABS: BASOPHILS % (AUTO) 0.8 % (0.0-2.0); EOSINOPHILS % (AUTO) 0.8 % (0.0-3.0); HEMATOCRIT 36.1 % (42.0-52.0); HEMOGLOBIN 11.8 G/DL (14.2-18.0); LYMPHOCYTES % (AUTO) 15.1 % (20.0-45.0); MEAN CORPUSCULAR VOLUME 92 FL (80-99); MONOCYTES % (AUTO) 8.4 % (1.0-10.0); NEUTROPHILS % (AUTO) 74.8 % (45.0-75.0); PLATELET COUNT 214 K/UL (150-450); RED BLOOD COUNT 3.91 M/UL (4.70-6.10); RED CELL DISTRIBUTION WIDTH 12.9 % (11.6-14.8); WHITE BLOOD COUNT 9.8 K/UL (4.8-10.8)
[2020-04-25] MEDS: dilTIAZem HCl 30mg tab ORAL SCH ×2 (08:36→20:12)
[2020-04-25] MEDS: Lisinopril 10mg tab ORAL SCH (08:36)
[2020-04-25] MEDS: Pantoprazole Inj IVP SCH (08:36)
[2020-04-25] MEDS: Enoxaparin 60mg Inj SUBQ SCH ×2 (08:37→20:14)
[2020-04-25] MEDS: Nitroglycerin 2% oint pkt TOPIC SCH (08:37)
[2020-04-25] MEDS: levETIRAcetam 500mg/NS100ml 100 ML IVPB SCH ×2 (08:37→20:12)
[2020-04-25 09:13] LABS: ALANINE AMINOTRANSFERASE 32 U/L (12-78); ALBUMIN/GLOBULIN RATIO 0.4 (1.0-2.7); ALKALINE PHOSPHATASE 79 U/L (46-116); ANION GAP 8 mmol/L (5-15); ASPARTATE AMINO TRANSFERASE 39 U/L (15-37); BILIRUBIN,TOTAL 0.4 MG/DL (0.2-1.0); BLOOD UREA NITROGEN 10 mg/dL (7-18); CALCIUM 8.3 MG/DL (8.5-10.1); CARBON DIOXIDE 26 MMOL/L (21-32); CHLORIDE 100 MMOL/L (98-107); CREATININE 0.9 MG/DL (0.55-1.30); PHOSPHORUS 2.7 MG/DL (2.5-4.9); SODIUM 134 MMOL/L (136-145)
[2020-04-25 09:19] LABS: POTASSIUM 2.6 MMOL/L (3.5-5.1)
--- NOTE | 2020-04-25 11:57 | Pulmonology Progress Note ---
Subjective ROS Limited/Unobtainable: Yes Interval Events: None new Constitutional: Reports: no symptoms HEENT: Repors: no symptoms Respiratory: Reports: no symptoms Cardiovascular: Reports: no symptoms Gastrointestinal/Abdominal: Reports: no symptoms Allergies: Coded Allergies: No Known Allergies (Unverified , 04/18/20) Objective Last 24 Hour Vital Signs Date Time Temp Pulse Resp B/P (MAP) Pulse Ox O2 Delivery O2 Flow Rate FiO2 04/25/20 09:00 Room Air 04/25/20 08:37 123/69 04/25/20 08:36 123/69 04/25/20 08:36 90 123/69 04/25/20 08:36 90 123/69 04/25/20 08:00 97.7 90 18 123/69 (87) 96 04/25/20 06:14 158/82 04/25/20 04:00 98.2 92 20 158/82 (107) 96 04/25/20 00:00 99.4 87 20 148/80 (102) 98 04/24/20 22:00 138/71 04/24/20 21:45 102 140/83 04/24/20 21:44 102 140/83 04/24/20 20:13 Room Air 04/24/20 20:00 97.9 102 20 140/83 (102) 97 04/24/20 16:00 98.1 81 18 121/72 (88) 98 04/24/20 14:23 118/87 04/24/20 12:30 98.9 79 18 118/87 (97) 98 Intake and Output 04/24/20 04/25/20 19:00 07:00 Intake Total 250 ml 100 ml Output Total 1100 ml Balance 250 ml -1000 ml Intake Oral 150 ml 100 ml IV Total 100 ml Output Urine Total 1100 ml # Bowel Movements 1 General Appearance: no acute distress HEENT: normocephalic Respiratory: chest wall non-tender, lungs clear Cardiovascular: normal peripheral pulses Abdomen: normal bowel sounds Laboratory Tests 04/24/20 15:58: POC Whole Blood Glucose 137H 04/25/20 06:06: POC Whole Blood Glucose [Pending] 04/25/20 07:50: White Blood Count 9.8, Red Blood Count 3.91L, Hemoglobin 11.8L, Hematocrit 36.1L , Mean Corpuscular Volume 92, Mean Corpuscular Hemoglobin 30.2, Mean Corpuscular Hemoglobin Concent 32.8, Red Cell Distribution Width 12.9, Platelet Count 214, Mean Platelet Volume 11.8H, Neutrophils (%) (Auto) 74.8, Lymphocytes (%) (Auto) 15.1L, Monocytes (%) (Auto) 8.4, Eosinophils (%) (Auto) 0.8, Basophils (%) (Auto) 0.8, Sodium Level 134L, Potassium Level 2.6*L, Chloride Level 100, Carbon Dioxide Level 26, Anion Gap 8, Blood Urea Nitrogen 10, Creatinine 0.9, Estimat Glomerular Filtration Rate > 60, Glucose Level 181H, Calcium Level 8.3L, Phosphorus Level 2.7, Magnesium Level 1.6L, Total Bilirubin 0.4, Aspartate Amino Transf (AST/SGOT) 39H, Alanine Aminotransferase (ALT/SGPT) 32, Alkaline Phosphatase 79, C-Reactive Protein, Quantitative 19.4H, Pro-B-Type Natriuretic Peptide 470H, Total Protein 6.7, Albumin 2.0L, Globulin 4.7, Albumin/Globulin Ratio 0.4L 04/25/20 11:28: POC Whole Blood Glucose 216H Current Medications Medications (Trade) Dose Ordered Sig/Kamron Route PRN Reason Start Time Stop Time Status Last Admin Dose Admin Aztreonam 2 gm/ Dextrose 110 ml @ 220 mls/hr Q8HR IVPB 04/19/20 11:00 04/26/20 10:59 04/25/20 05:17 Barium Sulfate (Varibar Honey) 250 ml NOW PRN RAD 04/22/20 16:15 04/25/20 16:13 Barium Sulfate (Varibar [place]) 240 ml NOW PRN RAD 04/22/20 16:15 04/25/20 16:13 Barium Sulfate (Varibar Pudding) 230 ml NOW PRN RAD 04/22/20 16:15 04/25/20 16:13 Barium Sulfate (Varibar Thin Liquid powder) 148 gm NOW PRN RAD 04/22/20 16:15 04/25/20 16:13 Chlorhexidine Gluconate (Haylie-Hex 2%) 1 applic DAILY@2000 TOPIC 04/22/20 20:00 07/21/20 19:59 04/23/20 22:07 Dextrose (Dextrose 50%) 25 ml Q30M PRN IV Hypoglycemia 04/19/20 07:30 07/18/20 07:29 Dextrose (Dextrose 50%) 50 ml Q30M PRN IV Hypoglycemia 04/19/20 07:30 07/18/20 07:29 Diltiazem HCl (Cardizem Tab) 30 mg EVERY 12 HOURS ORAL 04/23/20 09:30 05/23/20 09:29 04/25/20 08:36 Enoxaparin Sodium (Lovenox) 60 mg EVERY 12 HOURS SUBQ 04/19/20 09:00 07/18/20 08:59 04/25/20 08:37 Folic Acid (Folate) 3 mg DAILY ORAL 04/21/20 09:00 05/21/20 08:59 04/25/20 08:37 Furosemide (Lasix) 40 mg DAILY IV 04/24/20 09:00 05/24/20 08:59 04/25/20 08:36 Hydralazine HCl (Apresoline) 50 mg Q8HR ORAL 04/20/20 16:48 07/19/20 16:47 04/25/20 06:14 Insulin Aspart (NovoLOG) BEFORE MEALS AND HS SUBQ 04/19/20 11:30 07/18/20 11:29 04/25/20 11:38 Levetiracetam 100 ml @ 400 mls/hr Q12HR IVPB 04/19/20 00:00 07/18/20 00:00 04/25/20 08:37 Lisinopril (ZestriL) 10 mg DAILY ORAL 04/23/20 09:30 05/23/20 09:29 04/25/20 08:36 Lorazepam (Ativan 2mg/ml 1ml) 1 mg Q1H PRN IV For Seizures 04/19/20 00:30 04/26/20 00:29 Magnesium Sulfate 100 ml @ 100 mls/hr Q1H IVPB 04/25/20 11:00 04/25/20 14:59 04/25/20 11:13 Metoprolol Tartrate (Lopressor) 25 mg Q12HR ORAL 04/20/20 21:00 07/19/20 20:59 04/25/20 08:36 Nitroglycerin (Nitro-Bid) 1 inch DAILY TOPIC 04/19/20 09:30 05/19/20 09:29 04/25/20 08:37 Pantoprazole (Protonix) 40 mg DAILY IVP 04/19/20 09:00 05/19/20 08:59 04/25/20 08:36 Potassium Chloride 100 ml @ 100 mls/hr Q1HR IVPB 04/25/20 11:00 04/25/20 14:59 04/25/20 11:14 Potassium Chloride 100 ml @ 100 mls/hr Q1HR IVPB 04/25/20 21:00 04/26/20 00:59 Spironolactone (Aldactone) 25 mg BEFORE BREAKFAST ORAL 04/21/20 06:30 05/21/20 06:29 04/25/20 06:14 Tramadol HCl (Ultram) 25 mg BID PRN ORAL For Pain 04/19/20 01:45 04/25/20 22:59 Assessment/Plan Assessment/Plan IMPRESSION: 1. Negative COVID-19 pneumonia. 2. Recurrent seizures. 3. Medication noncompliance. 4. CVA. 5. long-term resident. DISCUSSION: Continue medications for seizures. DVT prophylaxis. I will follow as needed. Eddie Miller Omar Syed MD Apr 25, 2020 11:56
[2020-04-25 11:59] VITALS: BP 102/61
--- NOTE | 2020-04-25 12:51 | Nephrology Progress Note ---
Assessment/Plan Problem List: (1) Hypokalemia (2) Suspected 2019 novel coronavirus infection (3) Recurrent seizures (4) Elevated troponin I level Assessment Electrolyte imbalance Recurrent seizures. Medication noncompliance. CVA. [facility] resident. Elevated troponin I Plan April 25: Labs reviewed. Low magnesium and low potassium addressed. Continue per consultants. Renal parameters stable. April 24: No labs drawn today. Yesterday's labs reviewed. Stable from renal standpoint of view. Continue per consultants. April 23: Today's labs not drawn yet. Meds reviewed. Continue per consultants. April 22: Blood pressure better controlled. Half-normal saline IV fluid discontinued. Continue to monitor electrolytes. Low magnesium replaced. Continue per consultants. Previously: Add Zestril for better BP control. Reviewed blood pressure medications. Magnesium, phosphorus, potassium chloride supplement as needed Monitor electrolytes Continue per consultants Subjective ROS Limited/Unobtainable: No Constitutional: Reports: malaise, weakness Objective Objective Last 24 Hour Vital Signs Date Time Temp Pulse Resp B/P (MAP) Pulse Ox O2 Delivery O2 Flow Rate FiO2 04/25/20 11:59 99.1 100 18 102/61 (75) 97 04/25/20 09:00 Room Air 04/25/20 08:37 123/69 04/25/20 08:36 123/69 04/25/20 08:36 90 123/69 04/25/20 08:36 90 123/69 04/25/20 08:00 97.7 90 18 123/69 (87) 96 04/25/20 06:14 158/82 04/25/20 04:00 98.2 92 20 158/82 (107) 96 04/25/20 00:00 99.4 87 20 148/80 (102) 98 04/24/20 22:00 138/71 04/24/20 21:45 102 140/83 04/24/20 21:44 102 140/83 04/24/20 20:13 Room Air 04/24/20 20:00 97.9 102 20 140/83 (102) 97 04/24/20 16:00 98.1 81 18 121/72 (88) 98 04/24/20 14:23 118/87 Intake and Output 04/24/20 04/25/20 19:00 07:00 Intake Total 250 ml 100 ml Output Total 1100 ml Balance 250 ml -1000 ml Intake Oral 150 ml 100 ml IV Total 100 ml Output Urine Total 1100 ml # Bowel Movements 1 Laboratory Tests 04/24/20 15:58: POC Whole Blood Glucose 137H 04/25/20 06:06: POC Whole Blood Glucose [Pending] 04/25/20 07:50: White Blood Count 9.8, Red Blood Count 3.91L, Hemoglobin 11.8L, Hematocrit 36.1L , Mean Corpuscular Volume 92, Mean Corpuscular Hemoglobin 30.2, Mean Corpuscular Hemoglobin Concent 32.8, Red Cell Distribution Width 12.9, Platelet Count 214, Mean Platelet Volume 11.8H, Neutrophils (%) (Auto) 74.8, Lymphocytes (%) (Auto) 15.1L, Monocytes (%) (Auto) 8.4, Eosinophils (%) (Auto) 0.8, Basophils (%) (Auto) 0.8, Sodium Level 134L, Potassium Level 2.6*L, Chloride Level 100, Carbon Dioxide Level 26, Anion Gap 8, Blood Urea Nitrogen 10, Creatinine 0.9, Estimat Glomerular Filtration Rate > 60, Glucose Level 181H, Calcium Level 8.3L, Phosphorus Level 2.7, Magnesium Level 1.6L, Total Bilirubin 0.4, Aspartate Amino Transf (AST/SGOT) 39H, Alanine Aminotransferase (ALT/SGPT) 32, Alkaline Phosphatase 79, C-Reactive Protein, Quantitative 19.4H, Pro-B-Type Natriuretic Peptide 470H, Total Protein 6.7, Albumin 2.0L, Globulin 4.7, Albumin/Globulin Ratio 0.4L 04/25/20 11:28: POC Whole Blood Glucose 216H Height (Feet): 5 Height (Inches): 5.00 Weight (Pounds): 134 General Appearance: no apparent distress, lethargic Cardiovascular: tachycardia Respiratory/Chest: decreased breath sounds Objective No change Reymundo Doyle MD Apr 25, 2020 12:51
[2020-04-25 16:00] VITALS: BP 135/78
--- NOTE | 2020-04-25 19:29 | Infectious Diseases Prog Note ---
Assessment/Plan Problems: (1) Suspected 2019 novel coronavirus infection Assessment & Plan: was ruled out with negative PCR test , MAY DISCONTINUE isolation for now (2) Fever Assessment & Plan: resolved , suspect due to UTI already on aztreonam (3) Recurrent seizures Assessment & Plan: reloaded with meds, watch out for breakthrough , neurology eval, aspiration precaution (4) Hypoxemia requiring supplemental oxygen Assessment & Plan: with negative COVID 19 PER pcr and negative CXR for infiltration , influenza A&B are both negative. may discontinue isolation, monitor CXR and ABG (5) Pseudomonas urinary tract infection Assessment & Plan: continue aztreonam for 7 days Subjective ROS Limited/Unobtainable: Yes Allergies: Coded Allergies: No Known Allergies (Unverified , 04/18/20) he was lying in bed lethargic and unresponsive to verbal commands , had no fever or chills, no cough or shortness of breath and no diarrhea. Objective Last 24 Hour Vital Signs Date Time Temp Pulse Resp B/P (MAP) Pulse Ox O2 Delivery O2 Flow Rate FiO2 04/25/20 16:00 98.5 101 19 135/78 (97) 95 04/25/20 14:00 102/61 04/25/20 11:59 99.1 100 18 102/61 (75) 97 04/25/20 09:00 Room Air 04/25/20 08:37 123/69 04/25/20 08:36 123/69 04/25/20 08:36 90 123/69 04/25/20 08:36 90 123/69 04/25/20 08:00 97.7 90 18 123/69 (87) 96 04/25/20 06:14 158/82 04/25/20 04:00 98.2 92 20 158/82 (107) 96 04/25/20 00:00 99.4 87 20 148/80 (102) 98 04/24/20 22:00 138/71 04/24/20 21:45 102 140/83 04/24/20 21:44 102 140/83 04/24/20 20:13 Room Air 04/24/20 20:00 97.9 102 20 140/83 (102) 97 Height (Feet): 5 Height (Inches): 5.00 Weight (Pounds): 134 General Appearance: WD/WN, no acute distress HEENT: normocephalic, atraumatic, anicteric, mucous membranes moist, PERRL Respiratory/Chest: chest wall non-tender, lungs clear, normal breath sounds, no respiratory distress, no accessory muscle use Cardiovascular: normal peripheral pulses, normal rate, regular rhythm, no gallop/murmur, no JVD Abdomen: normal bowel sounds, soft, non tender, no organomegaly, non distended, no mass, no scars Genitourinary: normal external genitalia Extremities: no cyanosis, no clubbing Skin: no rash, no lesions Neurologic/Psychiatric: club concierge II-XII 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, alert, responsive Lymphatic: no neck adenopathy, no groin adenopathy Musculoskeletal: normal muscle bulk, no effusion Laboratory Tests Test 04/25/20 06:06 04/25/20 07:50 04/25/20 11:28 04/25/20 16:30 POC Whole Blood Glucose Pending 216 MG/DL (74-106) H 351 MG/DL (74-106) H White Blood Count 9.8 K/UL (4.8-10.8) Red Blood Count 3.91 M/UL (4.70-6.10) L Hemoglobin 11.8 G/DL (14.2-18.0) L Hematocrit 36.1 % (42.0-52.0) L Mean Corpuscular Volume 92 FL (80-99) Mean Corpuscular Hemoglobin 30.2 PG (27.0-31.0) Mean Corpuscular Hemoglobin Concent 32.8 G/DL (32.0-36.0) Red Cell Distribution Width 12.9 % (11.6-14.8) Platelet Count 214 K/UL (150-450) Mean Platelet Volume 11.8 FL (6.5-10.1) H Neutrophils (%) (Auto) 74.8 % (45.0-75.0) Lymphocytes (%) (Auto) 15.1 % (20.0-45.0) L Monocytes (%) (Auto) 8.4 % (1.0-10.0) Eosinophils (%) (Auto) 0.8 % (0.0-3.0) Basophils (%) (Auto) 0.8 % (0.0-2.0) Sodium Level 134 MMOL/L (136-145) L Potassium Level 2.6 MMOL/L (3.5-5.1) *L Chloride Level 100 MMOL/L (98-107) Carbon Dioxide Level 26 MMOL/L (21-32) Anion Gap 8 mmol/L (5-15) Blood Urea Nitrogen 10 mg/dL (7-18) Creatinine 0.9 MG/DL (0.55-1.30) Estimat Glomerular Filtration Rate > 60 mL/min (>60) Glucose Level 181 MG/DL (74-106) H Calcium Level 8.3 MG/DL (8.5-10.1) L Phosphorus Level 2.7 MG/DL (2.5-4.9) Magnesium Level 1.6 MG/DL (1.8-2.4) L Total Bilirubin 0.4 MG/DL (0.2-1.0) Aspartate Amino Transf (AST/SGOT) 39 U/L (15-37) H Alanine Aminotransferase (ALT/SGPT) 32 U/L (12-78) Alkaline Phosphatase 79 U/L (46-116) C-Reactive Protein, Quantitative 19.4 mg/dL (0.00-0.90) H Pro-B-Type Natriuretic Peptide 470 pg/mL (0-125) H Total Protein 6.7 G/DL (6.4-8.2) Albumin 2.0 G/DL (3.4-5.0) L Globulin 4.7 g/dL Albumin/Globulin Ratio 0.4 (1.0-2.7) L Current Medications Medications (Trade) Dose Ordered Sig/Kamron Route PRN Reason Start Time Stop Time Status Last Admin Dose Admin Aztreonam 2 gm/ Dextrose 110 ml @ 220 mls/hr Q8HR IVPB 04/19/20 11:00 04/26/20 10:59 04/25/20 14:12 Chlorhexidine Gluconate (Haylie-Hex 2%) 1 applic DAILY@2000 TOPIC 04/22/20 20:00 07/21/20 19:59 04/23/20 22:07 Dextrose (Dextrose 50%) 25 ml Q30M PRN IV Hypoglycemia 04/19/20 07:30 07/18/20 07:29 Dextrose (Dextrose 50%) 50 ml Q30M PRN IV Hypoglycemia 04/19/20 07:30 07/18/20 07:29 Diltiazem HCl (Cardizem Tab) 30 mg EVERY 12 HOURS ORAL 04/23/20 09:30 05/23/20 09:29 04/25/20 08:36 Enoxaparin Sodium (Lovenox) 60 mg EVERY 12 HOURS SUBQ 04/19/20 09:00 07/18/20 08:59 04/25/20 08:37 Folic Acid (Folate) 3 mg DAILY ORAL 04/21/20 09:00 05/21/20 08:59 04/25/20 08:37 Furosemide (Lasix) 40 mg DAILY IV 04/24/20 09:00 05/24/20 08:59 04/25/20 08:36 Hydralazine HCl (Apresoline) 50 mg Q8HR ORAL 04/20/20 16:48 07/19/20 16:47 04/25/20 06:14 Insulin Aspart (NovoLOG) BEFORE MEALS AND HS SUBQ 04/19/20 11:30 07/18/20 11:29 04/25/20 16:33 Levetiracetam 100 ml @ 400 mls/hr Q12HR IVPB 04/19/20 00:00 07/18/20 00:00 04/25/20 08:37 Lisinopril (ZestriL) 10 mg DAILY ORAL 04/23/20 09:30 05/23/20 09:29 04/25/20 08:36 Lorazepam (Ativan 2mg/ml 1ml) 1 mg Q1H PRN IV For Seizures 04/19/20 00:30 04/26/20 00:29 Metoprolol Tartrate (Lopressor) 25 mg Q12HR ORAL 04/20/20 21:00 07/19/20 20:59 04/25/20 08:36 Nitroglycerin (Nitro-Bid) 1 inch DAILY TOPIC 04/19/20 09:30 05/19/20 09:29 04/25/20 08:37 Pantoprazole (Protonix) 40 mg DAILY IVP 04/19/20 09:00 05/19/20 08:59 04/25/20 08:36 Potassium Chloride 100 ml @ 100 mls/hr Q1HR IVPB 04/25/20 21:00 04/26/20 00:59 Potassium Chloride (K-Dur) 40 meq TWICE A DAY ORAL 04/26/20 09:00 07/25/20 08:59 Spironolactone (Aldactone) 25 mg BEFORE BREAKFAST ORAL 04/21/20 06:30 05/21/20 06:29 04/25/20 06:14 Tramadol HCl (Ultram) 25 mg BID PRN ORAL For Pain 04/19/20 01:45 04/25/20 22:59 Hermann Blue M.D. Apr 25, 2020 19:29
[2020-04-25 20:00] VITALS: BP 149/74
[2020-04-25] MEDS: Dyna-Hex 2% Top Sol 2oz TOPIC SCH (20:13)
--- NOTE | 2020-04-25 22:51 | General Progress Note ---
Subjective Allergies: Coded Allergies: No Known Allergies (Unverified , 04/18/20) Objective Last 24 Hour Vital Signs Date Time Temp Pulse Resp B/P (MAP) Pulse Ox O2 Delivery O2 Flow Rate FiO2 04/25/20 21:33 151/68 04/25/20 21:00 Room Air 04/25/20 20:12 83 149/74 04/25/20 20:12 83 149/74 04/25/20 20:00 97.9 83 20 149/74 (99) 97 04/25/20 16:00 98.5 101 19 135/78 (97) 95 04/25/20 14:00 102/61 04/25/20 11:59 99.1 100 18 102/61 (75) 97 04/25/20 09:00 Room Air 04/25/20 08:37 123/69 04/25/20 08:36 123/69 04/25/20 08:36 90 123/69 04/25/20 08:36 90 123/69 04/25/20 08:00 97.7 90 18 123/69 (87) 96 04/25/20 06:14 158/82 04/25/20 04:00 98.2 92 20 158/82 (107) 96 04/25/20 00:00 99.4 87 20 148/80 (102) 98 Intake and Output 04/24/20 04/25/20 19:00 07:00 Intake Total 250 ml 100 ml Output Total 1100 ml Balance 250 ml -1000 ml Intake Oral 150 ml 100 ml IV Total 100 ml Output Urine Total 1100 ml # Bowel Movements 1 Laboratory Tests 04/25/20 06:06: POC Whole Blood Glucose [Pending] 04/25/20 07:50: White Blood Count 9.8, Red Blood Count 3.91L, Hemoglobin 11.8L, Hematocrit 36.1L , Mean Corpuscular Volume 92, Mean Corpuscular Hemoglobin 30.2, Mean Corpuscular Hemoglobin Concent 32.8, Red Cell Distribution Width 12.9, Platelet Count 214, Mean Platelet Volume 11.8H, Neutrophils (%) (Auto) 74.8, Lymphocytes (%) (Auto) 15.1L, Monocytes (%) (Auto) 8.4, Eosinophils (%) (Auto) 0.8, Basophils (%) (Auto) 0.8, Sodium Level 134L, Potassium Level 2.6*L, Chloride Level 100, Carbon Dioxide Level 26, Anion Gap 8, Blood Urea Nitrogen 10, Creatinine 0.9, Estimat Glomerular Filtration Rate > 60, Glucose Level 181H, Calcium Level 8.3L, Phosphorus Level 2.7, Magnesium Level 1.6L, Total Bilirubin 0.4, Aspartate Amino Transf (AST/SGOT) 39H, Alanine Aminotransferase (ALT/SGPT) 32, Alkaline Phosphatase 79, C-Reactive Protein, Quantitative 19.4H, Pro-B-Type Natriuretic Peptide 470H, Total Protein 6.7, Albumin 2.0L, Globulin 4.7, Albumin/Globulin Ra sameera 0.4L 04/25/20 11:28: POC Whole Blood Glucose 216H 04/25/20 16:30: POC Whole Blood Glucose 351H Height (Feet): 5 Height (Inches): 5.00 Weight (Pounds): 134 Assessment/Plan Status: progressing Assessment/Plan: S, O: Limited, patient is awake, poor historian PHYSICAL EXAMINATION:HEAD AND NECK: Atraumatic and normocephalic. CHEST: Diffuse bronchial breathing sounds.HEART: S1 and S2. Irregular rate and rhythm. ABDOMEN: Soft. No organomegaly.MUSCULOSKELETAL: Spontaneous movement in all four extremities. Limited evaluation.NEUROLOGY: The patient is delirious. Meds: reviewed and reconciled ASSESSMENT: 1. Sepsis 2. UTI- Pseudomonas 3. Dysphagia 4. Breakthrough seizure secondary to noncompliance with medications. 2. Leukocytosis, likely reactive. 3. Chronic anemia. 4. Hypokalemia. 5. Diabetes type 2. 6. Abnormal troponin. 7. Atrial flutter. 8. GI and DVT prophylaxis. 9. We will continue with antiepileptic medication. 10. Continue with neuro checks. 11. We will start the patient on aspirin. 12. We will monitor off the antibiotic for now. 13. Obtain 2D echo. Plan: off isolation per ID, Pending COVID-PCR test High Troponin levels, followup with cardiology Dysphagia, pending Video swallow start low dose Lantus and will monitor blood glucose David Kaplan MD Apr 25, 2020 22:51
[2020-04-25] MEDS: Levemir Flexpen SUBQ SCH (23:52)
[2020-04-26] VITALS: BP 126/57
[2020-04-26 04:00] VITALS: BP 141/63
[2020-04-26] MEDS: Aztreonam Inj 2 GM in D5W 110 ML IVPB SCH (05:37)
[2020-04-26] MEDS: HydrALAZINE 50mg tab ORAL SCH ×3 (05:37→21:25)
[2020-04-26] MEDS: Spironolactone 25mg tab ORAL SCH (05:38)
[2020-04-26] MEDS: NovoLOG Insulin Flexpen SUBQ SCH ×4 (05:38→21:28)
[2020-04-26 07:17] LABS: ALANINE AMINOTRANSFERASE 32 U/L (12-78); ALBUMIN/GLOBULIN RATIO 0.4 (1.0-2.7); ALKALINE PHOSPHATASE 84 U/L (46-116); ANION GAP 8 mmol/L (5-15); ASPARTATE AMINO TRANSFERASE 30 U/L (15-37); BILIRUBIN,TOTAL 0.4 MG/DL (0.2-1.0); BLOOD UREA NITROGEN 8 mg/dL (7-18); CALCIUM 8.2 MG/DL (8.5-10.1); CARBON DIOXIDE 27 MMOL/L (21-32); CHLORIDE 101 MMOL/L (98-107); PHOSPHORUS 2.4 MG/DL (2.5-4.9); SODIUM 136 MMOL/L (136-145)
[2020-04-26 08:00] VITALS: BP 160/76
[2020-04-26] MEDS: levETIRAcetam 500mg/NS100ml 100 ML IVPB SCH ×2 (08:49→21:25)
[2020-04-26] MEDS: Lisinopril 10mg tab ORAL SCH ×2 (08:50→17:28)
[2020-04-26] MEDS: dilTIAZem HCl 30mg tab ORAL SCH (08:50)
[2020-04-26] MEDS: Enoxaparin 60mg Inj SUBQ SCH ×2 (08:51→21:26)
[2020-04-26] MEDS: Pantoprazole Inj IVP SCH (08:52)
[2020-04-26] MEDS: Nitroglycerin 2% oint pkt TOPIC SCH (08:52)
--- NOTE | 2020-04-26 10:33 | Pulmonology Progress Note ---
Subjective ROS Limited/Unobtainable: Yes Interval Events: None new Constitutional: Reports: no symptoms HEENT: Repors: no symptoms Respiratory: Reports: no symptoms Cardiovascular: Reports: no symptoms Gastrointestinal/Abdominal: Reports: no symptoms Allergies: Coded Allergies: No Known Allergies (Unverified , 04/18/20) Objective Last 24 Hour Vital Signs Date Time Temp Pulse Resp B/P (MAP) Pulse Ox O2 Delivery O2 Flow Rate FiO2 04/26/20 08:52 160/76 04/26/20 08:50 160/76 04/26/20 08:50 69 160/76 04/26/20 08:49 69 160/76 04/26/20 08:00 98.3 69 18 160/76 (104) 98 04/26/20 05:37 141/63 04/26/20 04:00 98.4 97 20 141/63 (89) 96 04/26/20 00:00 98.4 89 20 126/57 (80) 96 04/25/20 21:33 151/68 04/25/20 21:00 Room Air 04/25/20 20:12 83 149/74 04/25/20 20:12 83 149/74 04/25/20 20:00 97.9 83 20 149/74 (99) 97 04/25/20 16:00 98.5 101 19 135/78 (97) 95 04/25/20 14:00 102/61 04/25/20 11:59 99.1 100 18 102/61 (75) 97 Intake and Output 04/25/20 04/26/20 19:00 07:00 Intake Total 720 ml Balance 720 ml Intake Oral 720 ml # Voids 3 General Appearance: no acute distress HEENT: normocephalic Respiratory: chest wall non-tender, lungs clear Cardiovascular: normal peripheral pulses Abdomen: normal bowel sounds Laboratory Tests 04/25/20 11:28: POC Whole Blood Glucose 216H 04/25/20 16:30: POC Whole Blood Glucose 351H 04/26/20 05:30: Sodium Level 136, Potassium Level 3.0L, Chloride Level 101, Carbon Dioxide Level 27, Anion Gap 8, Blood Urea Nitrogen 8, Creatinine 1.0, Estimat Glomerular Filtration Rate > 60, Glucose Level 170H, Calcium Level 8.2L, Phosphorus Level 2.4L, Magnesium Level 2.1, Total Bilirubin 0.4, Aspartate Amino Transf (AST/SGOT) 30, Alanine Aminotransferase (ALT/SGPT) 32, Alkaline Phosphatase 84, Total Protein 7.0, Albumin 2.0L, Globulin 5.0, Albumin/Globulin Ratio 0.4L Current Medications Medications (Trade) Dose Ordered Sig/Kamron Route PRN Reason Start Time Stop Time Status Last Admin Dose Admin Aztreonam 2 gm/ Dextrose 110 ml @ 220 mls/hr Q8HR IVPB 04/19/20 11:00 04/26/20 10:59 04/26/20 05:37 Chlorhexidine Gluconate (Haylie-Hex 2%) 1 applic DAILY@2000 TOPIC 04/22/20 20:00 07/21/20 19:59 04/25/20 20:13 Dextrose (Dextrose 50%) 25 ml Q30M PRN IV Hypoglycemia 04/19/20 07:30 07/18/20 07:29 Dextrose (Dextrose 50%) 50 ml Q30M PRN IV Hypoglycemia 04/19/20 07:30 07/18/20 07:29 Diltiazem HCl (Cardizem Tab) 30 mg EVERY 12 HOURS ORAL 04/23/20 09:30 05/23/20 09:29 04/26/20 08:50 Enoxaparin Sodium (Lovenox) 60 mg EVERY 12 HOURS SUBQ 04/19/20 09:00 07/18/20 08:59 04/26/20 08:51 Folic Acid (Folate) 3 mg DAILY ORAL 04/21/20 09:00 05/21/20 08:59 04/26/20 08:51 Furosemide (Lasix) 40 mg DAILY IV 04/24/20 09:00 05/24/20 08:59 04/26/20 08:52 Hydralazine HCl (Apresoline) 50 mg Q8HR ORAL 04/20/20 16:48 07/19/20 16:47 04/26/20 05:37 Insulin Aspart (NovoLOG) BEFORE MEALS AND HS SUBQ 04/19/20 11:30 07/18/20 11:29 04/26/20 05:38 Insulin Detemir (Levemir) 6 units QHS SUBQ 04/25/20 22:45 07/24/20 22:44 04/25/20 23:52 Levetiracetam 100 ml @ 400 mls/hr Q12HR IVPB 04/19/20 00:00 07/18/20 00:00 04/26/20 08:49 Lisinopril (ZestriL) 10 mg DAILY ORAL 04/23/20 09:30 05/23/20 09:29 04/26/20 08:50 Metoprolol Tartrate (Lopressor) 25 mg Q12HR ORAL 04/20/20 21:00 07/19/20 20:59 04/26/20 08:49 Nitroglycerin (Nitro-Bid) 1 inch DAILY TOPIC 04/19/20 09:30 05/19/20 09:29 04/26/20 08:52 Pantoprazole (Protonix) 40 mg DAILY IVP 04/19/20 09:00 05/19/20 08:59 04/26/20 08:52 Potassium Chloride (K-Dur) 40 meq TWICE A DAY ORAL 04/26/20 09:00 07/25/20 08:59 04/26/20 08:51 Spironolactone (Aldactone) 25 mg BEFORE BREAKFAST ORAL 04/21/20 06:30 05/21/20 06:29 04/26/20 05:38 Assessment/Plan Assessment/Plan IMPRESSION: 1. Negative COVID-19 pneumonia. 2. Recurrent seizures. 3. Medication noncompliance. 4. CVA. 5. detention resident. DISCUSSION: Continue medications for seizures. DVT prophylaxis. I will follow as needed. Eddie Miller Omar Syed MD Apr 26, 2020 10:33
[2020-04-26 12:00] VITALS: BP 145/73
--- NOTE | 2020-04-26 14:32 | Nephrology Progress Note ---
Assessment/Plan Problem List: (1) Hypokalemia (2) Suspected 2019 novel coronavirus infection (3) Recurrent seizures (4) Elevated troponin I level Assessment Electrolyte imbalance Recurrent seizures. Medication noncompliance. CVA. halfway resident. Elevated troponin I Plan April 26: Labs reviewed. Medication list reviewed. Discussed with PMD. IV Lasix, cardiazem, spironolactone was all discontinued. Lisinopril increased to twice daily with proper BP parameters. Potassium supplement given. Continue to monitor renal parameters and electrolytes. Per orders. April 25: Labs reviewed. Low magnesium and low potassium addressed. Continue per consultants. Renal parameters stable. April 24: No labs drawn today. Yesterday's labs reviewed. Stable from renal standpoint of view. Continue per consultants. April 23: Today's labs not drawn yet. Meds reviewed. Continue per consultants. April 22: Blood pressure better controlled. Half-normal saline IV fluid discontinued. Continue to monitor electrolytes. Low magnesium replaced. Continue per consultants. Previously: Add Zestril for better BP control. Reviewed blood pressure medications. Magnesium, phosphorus, potassium chloride supplement as needed Monitor electrolytes Continue per consultants Subjective ROS Limited/Unobtainable: No Constitutional: Reports: malaise Objective Objective Last 24 Hour Vital Signs Date Time Temp Pulse Resp B/P (MAP) Pulse Ox O2 Delivery O2 Flow Rate FiO2 04/26/20 13:50 145/73 04/26/20 12:00 98.3 71 18 145/73 (97) 97 04/26/20 09:00 Room Air 04/26/20 08:52 160/76 04/26/20 08:50 160/76 04/26/20 08:50 69 160/76 04/26/20 08:49 69 160/76 04/26/20 08:00 98.3 69 18 160/76 (104) 98 04/26/20 05:37 141/63 04/26/20 04:00 98.4 97 20 141/63 (89) 96 04/26/20 00:00 98.4 89 20 126/57 (80) 96 04/25/20 21:33 151/68 04/25/20 21:00 Room Air 04/25/20 20:12 83 149/74 04/25/20 20:12 83 149/74 04/25/20 20:00 97.9 83 20 149/74 (99) 97 04/25/20 16:00 98.5 101 19 135/78 (97) 95 Intake and Output 04/25/20 04/26/20 19:00 07:00 Intake Total 720 ml Balance 720 ml Intake Oral 720 ml # Voids 3 Laboratory Tests 04/25/20 16:30: POC Whole Blood Glucose 351H 04/26/20 05:30: Sodium Level 136, Potassium Level 3.0L, Chloride Level 101, Carbon Dioxide Level 27, Anion Gap 8, Blood Urea Nitrogen 8, Creatinine 1.0, Estimat Glomerular Filtration Rate > 60, Glucose Level 170H, Calcium Level 8.2L, Phosphorus Level 2.4L, Magnesium Level 2.1, Total Bilirubin 0.4, Aspartate Amino Transf (AST/SGOT) 30, Alanine Aminotransferase (ALT/SGPT) 32, Alkaline Phosphatase 84, Total Protein 7.0, Albumin 2.0L, Globulin 5.0, Albumin/Globulin Ratio 0.4L 04/26/20 12:17: POC Whole Blood Glucose [Pending] Height (Feet): 5 Height (Inches): 5.00 Weight (Pounds): 134 General Appearance: no apparent distress Cardiovascular: normal rate Respiratory/Chest: decreased breath sounds Abdomen: soft Objective No change Reymundo Doyle MD Apr 26, 2020 14:32
[2020-04-26] MEDS ORDERED: Tubing IV Secondary IV ONE (15:16)
[2020-04-26] MEDS ORDERED: Potassium Phosphate 20 MM in NS 275 ML IV ONE (15:30)
[2020-04-26 16:00] VITALS: BP 145/76
--- NOTE | 2020-04-26 17:31 | Cardiology Progress Note ---
Assessment/Plan Status: stable Status Narrative Still hypokalemic, replaced today In SR, hemodynamically stable Seen on 4th floor, not on tele, PO Cardizem for rate and rhythm control Assessment/Plan 1. Seizure disorder with recent seizure, on Keppra 2. HTN, under better control 3. Afib/aflutter, converted to SR on diltiazem - rate controlled Lovenox for AC during hospitalization not a good candidate for DOAC due to seizure activity and increased risk of bleeding 4. HFpEF, acute on chronic diastolic HF IV Lasix for diuresis Repeat BNP pending 5. DMII 6. Hypokalemia - persistent Subjective ROS Limited/Unobtainable: Yes Cardiovascular: Reports: no symptoms Respiratory: Reports: no symptoms Gastrointestinal/Abdominal: Reports: no symptoms Subjective no acute events, resting comfortably Objective Last 24 Hour Vital Signs Date Time Temp Pulse Resp B/P (MAP) Pulse Ox O2 Delivery O2 Flow Rate FiO2 04/26/20 16:00 98.7 76 18 145/76 (99) 96 04/26/20 13:50 145/73 04/26/20 12:00 98.3 71 18 145/73 (97) 97 04/26/20 09:00 Room Air 04/26/20 08:52 160/76 04/26/20 08:50 160/76 04/26/20 08:50 69 160/76 04/26/20 08:49 69 160/76 04/26/20 08:00 98.3 69 18 160/76 (104) 98 04/26/20 05:37 141/63 04/26/20 04:00 98.4 97 20 141/63 (89) 96 04/26/20 00:00 98.4 89 20 126/57 (80) 96 04/25/20 21:33 151/68 04/25/20 21:00 Room Air 04/25/20 20:12 83 149/74 04/25/20 20:12 83 149/74 04/25/20 20:00 97.9 83 20 149/74 (99) 97 General Appearance: no apparent distress, lethargic EENT: normal ENT inspection Neck: non-tender, no JVD Rhythm: NSR Cardiovascular: regular rhythm, no gallop/murmur Respiratory/Chest: normal breath sounds, no respiratory distress, no accessory muscle use Abdomen: non tender Extremities: no swelling Neurologic: motor weakness, aphasia Intake and Output 04/25/20 04/26/20 19:00 07:00 Intake Total 720 ml Balance 720 ml Intake Oral 720 ml # Voids 3 Laboratory Tests Test 04/26/20 05:30 04/26/20 12:17 04/26/20 16:01 Sodium Level 136 MMOL/L (136-145) Potassium Level 3.0 MMOL/L (3.5-5.1) L Chloride Level 101 MMOL/L (98-107) Carbon Dioxide Level 27 MMOL/L (21-32) Anion Gap 8 mmol/L (5-15) Blood Urea Nitrogen 8 mg/dL (7-18) Creatinine 1.0 MG/DL (0.55-1.30) Estimat Glomerular Filtration Rate > 60 mL/min (>60) Glucose Level 170 MG/DL (74-106) H Calcium Level 8.2 MG/DL (8.5-10.1) L Phosphorus Level 2.4 MG/DL (2.5-4.9) L Magnesium Level 2.1 MG/DL (1.8-2.4) Total Bilirubin 0.4 MG/DL (0.2-1.0) Aspartate Amino Transf (AST/SGOT) 30 U/L (15-37) Alanine Aminotransferase (ALT/SGPT) 32 U/L (12-78) Alkaline Phosphatase 84 U/L (46-116) Total Protein 7.0 G/DL (6.4-8.2) Albumin 2.0 G/DL (3.4-5.0) L Globulin 5.0 g/dL Albumin/Globulin Ratio 0.4 (1.0-2.7) L POC Whole Blood Glucose Pending Pending Larissa Tavares PA-C Apr 26, 2020 17:31
--- NOTE | 2020-04-26 19:55 | Infectious Diseases Prog Note ---
Assessment/Plan Problems: (1) Pseudomonas urinary tract infection Assessment & Plan: continue aztreonam for 7-10 days (2) Hypoxemia requiring supplemental oxygen Assessment & Plan: with negative COVID 19 PER pcr and negative CXR for infiltration , influenza A&B are both negative. may discontinue isolation, monitor CXR and ABG (3) Fever Assessment & Plan: resolved , suspect due to UTI already on aztreonam (4) Recurrent seizures Assessment & Plan: reloaded with meds, watch out for breakthrough , neurology eval, aspiration precaution Subjective ROS Limited/Unobtainable: Yes Allergies: Coded Allergies: No Known Allergies (Unverified , 04/18/20) he was lying in bed awake but unresponsive to verbal commands , had no fever or chills, no cough or shortness of breath and no diarrhea. Objective Last 24 Hour Vital Signs Date Time Temp Pulse Resp B/P (MAP) Pulse Ox O2 Delivery O2 Flow Rate FiO2 04/26/20 17:28 145/76 04/26/20 16:00 98.7 76 18 145/76 (99) 96 04/26/20 13:50 145/73 04/26/20 12:00 98.3 71 18 145/73 (97) 97 04/26/20 09:00 Room Air 04/26/20 08:52 160/76 04/26/20 08:50 160/76 04/26/20 08:50 69 160/76 04/26/20 08:49 69 160/76 04/26/20 08:00 98.3 69 18 160/76 (104) 98 04/26/20 05:37 141/63 04/26/20 04:00 98.4 97 20 141/63 (89) 96 04/26/20 00:00 98.4 89 20 126/57 (80) 96 04/25/20 21:33 151/68 04/25/20 21:00 Room Air 04/25/20 20:12 83 149/74 04/25/20 20:12 83 149/74 04/25/20 20:00 97.9 83 20 149/74 (99) 97 Height (Feet): 5 Height (Inches): 5.00 Weight (Pounds): 134 General Appearance: WD/WN, no acute distress HEENT: normocephalic, atraumatic, anicteric, mucous membranes moist, PERRL Respiratory/Chest: chest wall non-tender, lungs clear, normal breath sounds, no respiratory distress, no accessory muscle use Cardiovascular: normal peripheral pulses, normal rate, regular rhythm, no gallop/murmur, no JVD Abdomen: normal bowel sounds, soft, non tender, no organomegaly, non distended, no mass, no scars Genitourinary: normal external genitalia Extremities: no cyanosis, no clubbing Skin: no rash, no lesions Neurologic/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: 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, alert Lymphatic: no neck adenopathy, no groin adenopathy Musculoskeletal: normal muscle bulk, no effusion Laboratory Tests Test 04/26/20 05:30 04/26/20 12:17 04/26/20 16:01 Sodium Level 136 MMOL/L (136-145) Potassium Level 3.0 MMOL/L (3.5-5.1) L Chloride Level 101 MMOL/L (98-107) Carbon Dioxide Level 27 MMOL/L (21-32) Anion Gap 8 mmol/L (5-15) Blood Urea Nitrogen 8 mg/dL (7-18) Creatinine 1.0 MG/DL (0.55-1.30) Estimat Glomerular Filtration Rate > 60 mL/min (>60) Glucose Level 170 MG/DL (74-106) H Calcium Level 8.2 MG/DL (8.5-10.1) L Phosphorus Level 2.4 MG/DL (2.5-4.9) L Magnesium Level 2.1 MG/DL (1.8-2.4) Total Bilirubin 0.4 MG/DL (0.2-1.0) Aspartate Amino Transf (AST/SGOT) 30 U/L (15-37) Alanine Aminotransferase (ALT/SGPT) 32 U/L (12-78) Alkaline Phosphatase 84 U/L (46-116) Total Protein 7.0 G/DL (6.4-8.2) Albumin 2.0 G/DL (3.4-5.0) L Globulin 5.0 g/dL Albumin/Globulin Ratio 0.4 (1.0-2.7) L POC Whole Blood Glucose Pending Pending Current Medications Medications (Trade) Dose Ordered Sig/Kamron Route PRN Reason Start Time Stop Time Status Last Admin Dose Admin Chlorhexidine Gluconate (Haylie-Hex 2%) 1 applic DAILY@1999 TOPIC 04/22/20 20:00 07/21/20 19:59 04/25/20 20:13 Dextrose (Dextrose 50%) 25 ml Q30M PRN IV Hypoglycemia 04/19/20 07:30 07/18/20 07:29 Dextrose (Dextrose 50%) 50 ml Q30M PRN IV Hypoglycemia 04/19/20 07:30 07/18/20 07:29 Enoxaparin Sodium (Lovenox) 60 mg EVERY 12 HOURS SUBQ 04/19/20 09:00 07/18/20 08:59 04/26/20 08:51 Folic Acid (Folate) 3 mg DAILY ORAL 04/21/20 09:00 05/21/20 08:59 04/26/20 08:51 Furosemide (Lasix) 40 mg DAILY IV 04/27/20 09:00 05/27/20 08:59 Hydralazine HCl (Apresoline) 50 mg Q8HR ORAL 04/20/20 16:48 07/19/20 16:47 04/26/20 13:50 Insulin Aspart (NovoLOG) BEFORE MEALS AND HS SUBQ 04/19/20 11:30 07/18/20 11:29 04/26/20 17:31 Insulin Detemir (Levemir) 6 units QHS SUBQ 04/25/20 22:45 07/24/20 22:44 04/25/20 23:52 Levetiracetam 100 ml @ 400 mls/hr Q12HR IVPB 04/19/20 00:00 07/18/20 00:00 04/26/20 08:49 Lisinopril (ZestriL) 10 mg BID ORAL 04/26/20 18:00 05/23/20 09:29 04/26/20 17:28 Metoprolol Tartrate (Lopressor) 25 mg Q12HR ORAL 04/20/20 21:00 07/19/20 20:59 04/26/20 08:49 Nitroglycerin (Nitro-Bid) 1 inch DAILY TOPIC 04/19/20 09:30 05/19/20 09:29 04/26/20 08:52 Pantoprazole (Protonix) 40 mg DAILY IVP 04/19/20 09:00 05/19/20 08:59 04/26/20 08:52 Potassium Phosphate 20 mm/ Sodium Chloride 281.6667 ml @ 46.944 m... ONCE ONCE IV 04/26/20 15:30 04/26/20 21:29 04/26/20 15:57 Potassium Chloride (K-Dur) 40 meq TWICE A DAY ORAL 04/26/20 09:00 07/25/20 08:59 04/26/20 17:29 Hermann Blue M.D. Apr 26, 2020 19:55
[2020-04-26 20:00] VITALS: BP 137/76
[2020-04-26] MEDS: Levemir Flexpen SUBQ SCH (21:00)
[2020-04-26] MEDS: Dyna-Hex 2% Top Sol 2oz TOPIC SCH (21:39)
--- NOTE | 2020-04-26 22:07 | General Progress Note ---
Subjective Allergies: Coded Allergies: No Known Allergies (Unverified , 04/18/20) Objective Last 24 Hour Vital Signs Date Time Temp Pulse Resp B/P (MAP) Pulse Ox O2 Delivery O2 Flow Rate FiO2 04/26/20 21:25 95 137/76 04/26/20 21:25 137/76 04/26/20 17:28 145/76 04/26/20 16:00 98.7 76 18 145/76 (99) 96 04/26/20 13:50 145/73 04/26/20 12:00 98.3 71 18 145/73 (97) 97 04/26/20 09:00 Room Air 04/26/20 08:52 160/76 04/26/20 08:50 160/76 04/26/20 08:50 69 160/76 04/26/20 08:49 69 160/76 04/26/20 08:00 98.3 69 18 160/76 (104) 98 04/26/20 05:37 141/63 04/26/20 04:00 98.4 97 20 141/63 (89) 96 04/26/20 00:00 98.4 89 20 126/57 (80) 96 Intake and Output 04/25/20 04/26/20 19:00 07:00 Intake Total 720 ml Balance 720 ml Intake Oral 720 ml # Voids 3 Laboratory Tests 04/26/20 05:30: Sodium Level 136, Potassium Level 3.0L, Chloride Level 101, Carbon Dioxide Level 27, Anion Gap 8, Blood Urea Nitrogen 8, Creatinine 1.0, Estimat Glomerular Filtration Rate > 60, Glucose Level 170H, Calcium Level 8.2L, Phosphorus Level 2.4L, Magnesium Level 2.1, Total Bilirubin 0.4, Aspartate Amino Transf (AST/SGOT) 30, Alanine Aminotransferase (ALT/SGPT) 32, Alkaline Phosphatase 84, Total Protein 7.0, Albumin 2.0L, Globulin 5.0, Albumin/Globulin Ratio 0.4L 04/26/20 12:17: POC Whole Blood Glucose [Pending] 04/26/20 16:01: POC Whole Blood Glucose [Pending] 04/26/20 21:20: POC Whole Blood Glucose 152H Height (Feet): 5 Height (Inches): 5.00 Weight (Pounds): 134 Assessment/Plan Status: stable Assessment/Plan: S, O: Limited, patient is awake, poor historian PHYSICAL EXAMINATION:HEAD AND NECK: Atraumatic and normocephalic. CHEST: Diffuse bronchial breathing sounds.HEART: S1 and S2. Irregular rate and rhythm. ABDOMEN: Soft. No organomegaly.MUSCULOSKELETAL: Spontaneous movement in all four extremities. Limited evaluation.NEUROLOGY: The patient is delirious. Meds: reviewed and reconciled ASSESSMENT: 1. Sepsis 2. UTI- Pseudomonas 3. Dysphagia 4. Breakthrough seizure secondary to noncompliance with medications. 2. Leukocytosis, likely reactive. 3. Chronic anemia. 4. Hypokalemia. 5. Diabetes type 2. 6. Abnormal troponin. 7. Atrial flutter. 8. GI and DVT prophylaxis. 9. We will continue with antiepileptic medication. 10. Continue with neuro checks. 11. We will start the patient on aspirin. 12. We will monitor off the antibiotic for now. 13. Obtain 2D echo. Plan: off isolation per ID, Pending COVID-PCR test High Troponin levels, followup with cardiology Dysphagia, pending Video swallow start low dose Lantus and will monitor blood glucose Resolution of abnormal leukocytosis David Kaplan MD Apr 26, 2020 22:07
[2020-04-27] VITALS (7 sets, daily range): BP systolic 125–145; BP diastolic 65–83
[2020-04-27] MEDS: HydrALAZINE 50mg tab ORAL SCH (05:58)
[2020-04-27] MEDS: NovoLOG Insulin Flexpen SUBQ SCH ×4 (06:42→22:24)
[2020-04-27 07:51] LABS: BASOPHILS % (AUTO) 0.7 % (0.0-2.0); EOSINOPHILS % (AUTO) 0.5 % (0.0-3.0); HEMATOCRIT 38.3 % (42.0-52.0); HEMOGLOBIN 12.5 G/DL (14.2-18.0); LYMPHOCYTES % (AUTO) 10.1 % (20.0-45.0); MEAN CORPUSCULAR VOLUME 93 FL (80-99); MONOCYTES % (AUTO) 8.1 % (1.0-10.0); NEUTROPHILS % (AUTO) 80.6 % (45.0-75.0); PLATELET COUNT 304 K/UL (150-450); RED BLOOD COUNT 4.12 M/UL (4.70-6.10); RED CELL DISTRIBUTION WIDTH 13.1 % (11.6-14.8); WHITE BLOOD COUNT 10.4 K/UL (4.8-10.8)
[2020-04-27 08:21] LABS: ALANINE AMINOTRANSFERASE 19 U/L (12-78); ALBUMIN 2.1 G/DL (3.4-5.0); ALBUMIN/GLOBULIN RATIO 0.4 (1.0-2.7); ALKALINE PHOSPHATASE 84 U/L (46-116); ANION GAP 8 mmol/L (5-15); ASPARTATE AMINO TRANSFERASE 22 U/L (15-37); BILIRUBIN,TOTAL 0.5 MG/DL (0.2-1.0); BLOOD UREA NITROGEN 14 mg/dL (7-18); CALCIUM 8.7 MG/DL (8.5-10.1); CARBON DIOXIDE 27 MMOL/L (21-32); CHLORIDE 101 MMOL/L (98-107); CREATININE 0.9 MG/DL (0.55-1.30); PHOSPHORUS 3.7 MG/DL (2.5-4.9); POTASSIUM 3.6 MMOL/L (3.5-5.1); SODIUM 136 MMOL/L (136-145)
[2020-04-27] MEDS ORDERED: Metoprolol Succinate XL 50mg tab ORAL SCH (09:00)
[2020-04-27] MEDS: levETIRAcetam 500mg/NS100ml 100 ML IVPB SCH ×2 (09:44→22:16)
[2020-04-27] MEDS: Pantoprazole Inj IVP SCH (09:44)
[2020-04-27] MEDS: Lisinopril 10mg tab ORAL SCH ×2 (09:45→17:36)
[2020-04-27] MEDS: Nitroglycerin 2% oint pkt TOPIC SCH (09:46)
[2020-04-27] MEDS: Metoprolol Tartrate 50mg tab ORAL SCH ×2 (09:46→22:24)
[2020-04-27] MEDS: Enoxaparin 60mg Inj SUBQ SCH ×2 (09:47→22:17)
--- NOTE | 2020-04-27 09:57 | General Progress Note ---
Subjective Allergies: Coded Allergies: No Known Allergies (Unverified , 04/18/20) Objective Last 24 Hour Vital Signs Date Time Temp Pulse Resp B/P (MAP) Pulse Ox O2 Delivery O2 Flow Rate FiO2 04/27/20 09:46 101 126/83 04/27/20 09:46 126/83 04/27/20 09:45 126/83 04/27/20 08:00 98.7 101 18 126/83 (97) 99 04/27/20 06:00 98.8 100 20 145/76 (99) 95 04/27/20 05:58 138/76 04/27/20 04:00 98.8 100 20 145/76 (99) 95 04/27/20 00:00 98.5 90 20 137/73 (94) 98 04/26/20 21:25 95 137/76 04/26/20 21:25 137/76 04/26/20 21:00 Room Air 04/26/20 20:00 98.5 95 20 137/76 (96) 98 04/26/20 17:28 145/76 04/26/20 16:00 98.7 76 18 145/76 (99) 96 04/26/20 13:50 145/73 04/26/20 12:00 98.3 71 18 145/73 (97) 97 Intake and Output 04/26/20 04/27/20 19:00 07:00 Intake Total 300 ml 200 ml Output Total 1800 ml 700 ml Balance -1500 ml -500 ml Intake Oral 100 ml IV Total 100 ml 100 ml Other 200 ml Output Urine Total 1800 ml 700 ml # Bowel Movements 1 Laboratory Tests 04/26/20 12:17: POC Whole Blood Glucose [Pending] 04/26/20 16:01: POC Whole Blood Glucose [Pending] 04/26/20 21:20: POC Whole Blood Glucose 152H 04/27/20 06:38: POC Whole Blood Glucose 183H 04/27/20 07:30: White Blood Count 10.4, Red Blood Count 4.12L, Hemoglobin 12.5L, Hematocrit 38.3L, Mean Corpuscular Volume 93, Mean Corpuscular Hemoglobin 30.3, Mean Corpuscular Hemoglobin Concent 32.6, Red Cell Distribution Width 13.1, Platelet Count 304, Mean Platelet Volume 10.1, Neutrophils (%) (Auto) 80.6H, Lymphocytes (%) (Auto) 10.1L, Monocytes (%) (Auto) 8.1, Eosinophils (%) (Auto) 0.5, Basophils (%) (Auto) 0.7, Sodium Level 136, Potassium Level 3.6, Chloride Level 101, Carbon Dioxide Level 27, Anion Gap 8, Blood Urea Nitrogen 14, Creatinine 0.9, Estimat Glomerular Filtration Rate > 60, Glucose Level 201H, Uric Acid 3.4, Calcium Level 8.7, Phosphorus Level 3.7, Magnesium Level 1.8, Total Bilirubin 0.5, Aspartate Amino Transf (AST/SGOT) 22, Alanine Aminotransferase (ALT/SGPT) 19, Alkaline Phosphatase 84, C-Reactive Protein, Quantitative 17.0H, Pro-B-Type Natriuretic Peptide 393H, Total Protein 7.3, Albumin 2.1L, Globulin 5.2, Albumin/Globulin Ratio 0.4L Height (Feet): 5 Height (Inches): 5.00 Weight (Pounds): 134 Assessment/Plan Status: stable Assessment/Plan: S, O: Limited, patient is awake, poor historian PHYSICAL EXAMINATION:HEAD AND NECK: Atraumatic and normocephalic. CHEST: Diffuse bronchial breathing sounds.HEART: S1 and S2. Irregular rate and rhythm. ABDOMEN: Soft. No organomegaly.MUSCULOSKELETAL: Spontaneous movement in all four extremities. Limited evaluation.NEUROLOGY: The patient is delirious. Meds: reviewed and reconciled ASSESSMENT: 1. Sepsis 2. UTI- Pseudomonas 3. Dysphagia 4. Breakthrough seizure secondary to noncompliance with medications. 2. Leukocytosis, likely reactive. 3. Chronic anemia. 4. Hypokalemia. 5. Diabetes type 2. 6. Abnormal troponin. 7. Atrial flutter. 8. GI and DVT prophylaxis. 9. We will continue with antiepileptic medication. 10. Continue with neuro checks. 11. We will start the patient on aspirin. 12. We will monitor off the antibiotic for now. 13. Obtain 2D echo. Plan: off isolation per ID, Pending COVID-PCR test High Troponin levels, followup with cardiology Dysphagia, pending Video swallow start low dose Lantus and will monitor blood glucose Resolution of abnormal leukocytosis Discusssion: Modification of current BP medication , in conjunction with severe hypokalemia. Optimization of medication completed. I will hold DC and reassess BP and electrolytes tomorrow Rezvani,Mohammad MD Apr 27, 2020 09:57
--- NOTE | 2020-04-27 10:12 | Nephrology Progress Note ---
Assessment/Plan Problem List: (1) Hypokalemia (2) Suspected 2019 novel coronavirus infection (3) Recurrent seizures (4) Elevated troponin I level Assessment Electrolyte imbalance Recurrent seizures. Medication noncompliance. CVA. half-way resident. Elevated troponin I Plan April 27: Labs reviewed. Electrolyte within normal limits. Medication list reviewed. BP medication dosages adjusted with parameters as needed. April 26: Labs reviewed. Medication list reviewed. Discussed with PMD. IV Lasix, cardiazem, spironolactone was all discontinued. Lisinopril increased to twice daily with proper BP parameters. Potassium supplement given. Continue to monitor renal parameters and electrolytes. Per orders. April 25: Labs reviewed. Low magnesium and low potassium addressed. Continue per consultants. Renal parameters stable. April 24: No labs drawn today. Yesterday's labs reviewed. Stable from renal standpoint of view. Continue per consultants. April 23: Today's labs not drawn yet. Meds reviewed. Continue per consultants. April 22: Blood pressure better controlled. Half-normal saline IV fluid discontinued. Continue to monitor electrolytes. Low magnesium replaced. Continue per consultants. Previously: Add Zestril for better BP control. Reviewed blood pressure medications. Magnesium, phosphorus, potassium chloride supplement as needed Monitor electrolytes Continue per consultants Subjective ROS Limited/Unobtainable: Yes Objective Objective Last 24 Hour Vital Signs Date Time Temp Pulse Resp B/P (MAP) Pulse Ox O2 Delivery O2 Flow Rate FiO2 04/27/20 09:46 101 126/83 04/27/20 09:46 126/83 04/27/20 09:45 126/83 04/27/20 08:00 98.7 101 18 126/83 (97) 99 04/27/20 06:00 98.8 100 20 145/76 (99) 95 04/27/20 05:58 138/76 04/27/20 04:00 98.8 100 20 145/76 (99) 95 04/27/20 00:00 98.5 90 20 137/73 (94) 98 04/26/20 21:25 95 137/76 04/26/20 21:25 137/76 04/26/20 21:00 Room Air 04/26/20 20:00 98.5 95 20 137/76 (96) 98 04/26/20 17:28 145/76 04/26/20 16:00 98.7 76 18 145/76 (99) 96 04/26/20 13:50 145/73 04/26/20 12:00 98.3 71 18 145/73 (97) 97 Intake and Output 04/26/20 04/27/20 19:00 07:00 Intake Total 300 ml 200 ml Output Total 1800 ml 700 ml Balance -1500 ml -500 ml Intake Oral 100 ml IV Total 100 ml 100 ml Other 200 ml Output Urine Total 1800 ml 700 ml # Bowel Movements 1 Current Medications Medications (Trade) Dose Ordered Sig/Kamron Route PRN Reason Start Time Stop Time Status Last Admin Dose Admin Chlorhexidine Gluconate (Haylie-Hex 2%) 1 applic DAILY@2000 TOPIC 04/22/20 20:00 07/21/20 19:59 04/26/20 21:39 Dextrose (Dextrose 50%) 25 ml Q30M PRN IV Hypoglycemia 04/19/20 07:30 07/18/20 07:29 Dextrose (Dextrose 50%) 50 ml Q30M PRN IV Hypoglycemia 04/19/20 07:30 07/18/20 07:29 Enoxaparin Sodium (Lovenox) 60 mg EVERY 12 HOURS SUBQ 04/19/20 09:00 07/18/20 08:59 04/27/20 09:47 Folic Acid (Folate) 3 mg DAILY ORAL 04/21/20 09:00 05/21/20 08:59 04/27/20 09:46 Hydralazine HCl (Apresoline) 25 mg TID ORAL 04/27/20 13:00 07/26/20 12:59 Insulin Aspart (NovoLOG) BEFORE MEALS AND HS SUBQ 04/19/20 11:30 07/18/20 11:29 04/27/20 06:42 Insulin Detemir (Levemir) 6 units QHS SUBQ 04/25/20 22:45 07/24/20 22:44 04/26/20 21:00 Levetiracetam 100 ml @ 400 mls/hr Q12HR IVPB 04/19/20 00:00 07/18/20 00:00 04/27/20 09:44 Lisinopril (ZestriL) 10 mg BID ORAL 04/26/20 18:00 05/23/20 09:29 04/27/20 09:45 Metoprolol Tartrate (Lopressor) 50 mg Q12HR ORAL 04/27/20 09:00 07/26/20 08:59 04/27/20 09:46 Nitroglycerin (Nitro-Bid) 1 inch DAILY TOPIC 04/19/20 09:30 05/19/20 09:29 04/27/20 09:46 Pantoprazole (Protonix) 40 mg DAILY IVP 04/19/20 09:00 05/19/20 08:59 04/27/20 09:44 Laboratory Tests 04/26/20 12:17: POC Whole Blood Glucose [Pending] 04/26/20 16:01: POC Whole Blood Glucose [Pending] 04/26/20 21:20: POC Whole Blood Glucose 152H 04/27/20 06:38: POC Whole Blood Glucose 183H 04/27/20 07:30: White Blood Count 10.4, Red Blood Count 4.12L, Hemoglobin 12.5L, Hematocrit 38.3L, Mean Corpuscular Volume 93, Mean Corpuscular Hemoglobin 30.3, Mean Corpuscular Hemoglobin Concent 32.6, Red Cell Distribution Width 13.1, Platelet Count 304, Mean Platelet Volume 10.1, Neutrophils (%) (Auto) 80.6H, Lymphocytes (%) (Auto) 10.1L, Monocytes (%) (Auto) 8.1, Eosinophils (%) (Auto) 0.5, Basophils (%) (Auto) 0.7, Sodium Level 136, Potassium Level 3.6, Chloride Level 101, Carbon Dioxide Level 27, Anion Gap 8, Blood Urea Nitrogen 14, Creatinine 0.9, Estimat Glomerular Filtration Rate > 60, Glucose Level 201H, Uric Acid 3.4, Calcium Level 8.7, Phosphorus Level 3.7, Magnesium Level 1.8, Total Bilirubin 0.5, Aspartate Amino Transf (AST/SGOT) 22, Alanine Aminotransferase (ALT/SGPT) 19, Alkaline Phosphatase 84, C-Reactive Protein, Quantitative 17.0H, Pro-B-Type Natriuretic Peptide 393H, Total Protein 7.3, Albumin 2.1L, Globulin 5.2, Albumin/Globulin Ratio 0.4L Height (Feet): 5 Height (Inches): 5.00 Weight (Pounds): 134 General Appearance: no apparent distress Cardiovascular: normal rate, tachycardia Respiratory/Chest: decreased breath sounds Abdomen: soft Objective No change Reymundo Doyle MD Apr 27, 2020 10:12
--- NOTE | 2020-04-27 10:42 | Pulmonology Progress Note ---
Subjective ROS Limited/Unobtainable: Yes Interval Events: None new Constitutional: Reports: no symptoms HEENT: Repors: no symptoms Respiratory: Reports: no symptoms Cardiovascular: Reports: no symptoms Gastrointestinal/Abdominal: Reports: no symptoms Allergies: Coded Allergies: No Known Allergies (Unverified , 04/18/20) Objective Last 24 Hour Vital Signs Date Time Temp Pulse Resp B/P (MAP) Pulse Ox O2 Delivery O2 Flow Rate FiO2 04/27/20 09:46 101 126/83 04/27/20 09:46 126/83 04/27/20 09:45 126/83 04/27/20 08:00 98.7 101 18 126/83 (97) 99 04/27/20 06:00 98.8 100 20 145/76 (99) 95 04/27/20 05:58 138/76 04/27/20 04:00 98.8 100 20 145/76 (99) 95 04/27/20 00:00 98.5 90 20 137/73 (94) 98 04/26/20 21:25 95 137/76 04/26/20 21:25 137/76 04/26/20 21:00 Room Air 04/26/20 20:00 98.5 95 20 137/76 (96) 98 04/26/20 17:28 145/76 04/26/20 16:00 98.7 76 18 145/76 (99) 96 04/26/20 13:50 145/73 04/26/20 12:00 98.3 71 18 145/73 (97) 97 Intake and Output 04/26/20 04/27/20 19:00 07:00 Intake Total 300 ml 200 ml Output Total 1800 ml 700 ml Balance -1500 ml -500 ml Intake Oral 100 ml IV Total 100 ml 100 ml Other 200 ml Output Urine Total 1800 ml 700 ml # Bowel Movements 1 General Appearance: no acute distress HEENT: normocephalic Respiratory: chest wall non-tender, lungs clear Cardiovascular: normal peripheral pulses Abdomen: normal bowel sounds Laboratory Tests 04/26/20 12:17: POC Whole Blood Glucose [Pending] 04/26/20 16:01: POC Whole Blood Glucose [Pending] 04/26/20 21:20: POC Whole Blood Glucose 152H 04/27/20 06:38: POC Whole Blood Glucose 183H 04/27/20 07:30: White Blood Count 10.4, Red Blood Count 4.12L, Hemoglobin 12.5L, Hematocrit 38.3L, Mean Corpuscular Volume 93, Mean Corpuscular Hemoglobin 30.3, Mean Corpuscular Hemoglobin Concent 32.6, Red Cell Distribution Width 13.1, Platelet Count 304, Mean Platelet Volume 10.1, Neutrophils (%) (Auto) 80.6H, Lymphocytes (%) (Auto) 10.1L, Monocytes (%) (Auto) 8.1, Eosinophils (%) (Auto) 0.5, Basophils (%) (Auto) 0.7, Sodium Level 136, Potassium Level 3.6, Chloride Level 101, Carbon Dioxide Level 27, Anion Gap 8, Blood Urea Nitrogen 14, Creatinine 0.9, Estimat Glomerular Filtration Rate > 60, Glucose Level 201H, Uric Acid 3.4, Calcium Level 8.7, Phosphorus Level 3.7, Magnesium Level 1.8, Total Bilirubin 0.5, Aspartate Amino Transf (AST/SGOT) 22, Alanine Aminotransferase (ALT/SGPT) 19, Alkaline Phosphatase 84, C-Reactive Protein, Quantitative 17.0H, Pro-B-Type Natriuretic Peptide 393H, Total Protein 7.3, Albumin 2.1L, Globulin 5.2, Albumin/Globulin Ratio 0.4L Current Medications Medications (Trade) Dose Ordered Sig/Kamron Route PRN Reason Start Time Stop Time Status Last Admin Dose Admin Chlorhexidine Gluconate (Haylie-Hex 2%) 1 applic DAILY@1999 TOPIC 04/22/20 20:00 07/21/20 19:59 04/26/20 21:39 Dextrose (Dextrose 50%) 25 ml Q30M PRN IV Hypoglycemia 04/19/20 07:30 07/18/20 07:29 Dextrose (Dextrose 50%) 50 ml Q30M PRN IV Hypoglycemia 04/19/20 07:30 07/18/20 07:29 Enoxaparin Sodium (Lovenox) 60 mg EVERY 12 HOURS SUBQ 04/19/20 09:00 07/18/20 08:59 04/27/20 09:47 Famotidine (Pepcid) 20 mg BID ORAL 04/27/20 18:00 07/26/20 17:59 Folic Acid (Folate) 3 mg DAILY ORAL 04/21/20 09:00 05/21/20 08:59 04/27/20 09:46 Hydralazine HCl (Apresoline) 25 mg Q8HR ORAL 04/27/20 14:00 07/26/20 12:59 Insulin Aspart (NovoLOG) BEFORE MEALS AND HS SUBQ 04/19/20 11:30 07/18/20 11:29 04/27/20 06:42 Insulin Detemir (Levemir) 6 units QHS SUBQ 04/25/20 22:45 07/24/20 22:44 04/26/20 21:00 Levetiracetam 100 ml @ 400 mls/hr Q12HR IVPB 04/19/20 00:00 07/18/20 00:00 04/27/20 09:44 Lisinopril (ZestriL) 10 mg BID ORAL 04/26/20 18:00 05/23/20 09:29 04/27/20 09:45 Metoprolol Tartrate (Lopressor) 50 mg Q12HR ORAL 04/27/20 09:00 07/26/20 08:59 04/27/20 09:46 Nitroglycerin (Nitro-Bid) 1 inch DAILY TOPIC 04/19/20 09:30 05/19/20 09:29 04/27/20 09:46 Assessment/Plan Assessment/Plan IMPRESSION: 1. Negative COVID-19 pneumonia. 2. Recurrent seizures. 3. Medication noncompliance. 4. CVA. 5. retirement resident. DISCUSSION: Continue medications for seizures. DVT prophylaxis. I will follow as needed. Eddie Miller Omar Syed MD Apr 27, 2020 10:42
[2020-04-27] MEDS ORDERED: HydrALAZINE 25mg tab ORAL SCH (13:00)
[2020-04-27] MEDS: HydrALAZINE 25mg tab ORAL SCH ×2 (15:05→22:24)
--- NOTE | 2020-04-27 17:22 | Cardiology Progress Note ---
Assessment/Plan Status: stable Status Narrative Potassium replaced In SR, hemodynamically stable PO metoprolol dose increased for better rate control Cardizem discontinued BNP improved, transitioned to PO Lasix Assessment/Plan 1. Seizure disorder with recent seizure, on Keppra 2. HTN, under better control 3. Afib/aflutter, converted to SR s/p diltiazem - rate controlled in SR Bb for rate and rhythm control Lovenox for AC during hospitalization for PAF not a good candidate for DOAC due to seizure activity and increased risk of bleeding 4. HFpEF, acute on chronic diastolic HF PO Lasix for diuresis BNP improved 5. DMII 6. Hypokalemia - persistent 7. CKD Subjective ROS Limited/Unobtainable: Yes Cardiovascular: Reports: no symptoms Respiratory: Reports: no symptoms Gastrointestinal/Abdominal: Reports: no symptoms Subjective no acute events, resting comfortably Objective Last 24 Hour Vital Signs Date Time Temp Pulse Resp B/P (MAP) Pulse Ox O2 Delivery O2 Flow Rate FiO2 04/27/20 15:27 97.6 89 19 127/79 (95) 96 04/27/20 15:05 129/71 04/27/20 12:00 98.5 79 18 129/71 (90) 98 04/27/20 09:46 101 126/83 04/27/20 09:46 126/83 04/27/20 09:45 126/83 04/27/20 09:00 Room Air 04/27/20 08:00 98.7 101 18 126/83 (97) 99 04/27/20 06:00 98.8 100 20 145/76 (99) 95 04/27/20 05:58 138/76 04/27/20 04:00 98.8 100 20 145/76 (99) 95 04/27/20 00:00 98.5 90 20 137/73 (94) 98 04/26/20 21:25 95 137/76 04/26/20 21:25 137/76 04/26/20 21:00 Room Air 04/26/20 20:00 98.5 95 20 137/76 (96) 98 04/26/20 17:28 145/76 General Appearance: no apparent distress, lethargic Neck: no JVD Rhythm: NSR Cardiovascular: normal rate, regular rhythm Respiratory/Chest: no respiratory distress, no accessory muscle use Abdomen: soft Extremities: no swelling Neurologic: motor weakness, aphasia Intake and Output 04/26/20 04/27/20 19:00 07:00 Intake Total 300 ml 200 ml Output Total 1800 ml 700 ml Balance -1500 ml -500 ml Intake Oral 100 ml IV Total 100 ml 100 ml Other 200 ml Output Urine Total 1800 ml 700 ml # Bowel Movements 1 Laboratory Tests Test 04/26/20 21:20 04/27/20 06:38 04/27/20 07:30 04/27/20 11:45 POC Whole Blood Glucose 152 MG/DL (74-106) H 183 MG/DL (74-106) H Pending White Blood Count 10.4 K/UL (4.8-10.8) Red Blood Count 4.12 M/UL (4.70-6.10) L Hemoglobin 12.5 G/DL (14.2-18.0) L Hematocrit 38.3 % (42.0-52.0) L Mean Corpuscular Volume 93 FL (80-99) Mean Corpuscular Hemoglobin 30.3 PG (27.0-31.0) Mean Corpuscular Hemoglobin Concent 32.6 G/DL (32.0-36.0) Red Cell Distribution Width 13.1 % (11.6-14.8) Platelet Count 304 K/UL (150-450) Mean Platelet Volume 10.1 FL (6.5-10.1) Neutrophils (%) (Auto) 80.6 % (45.0-75.0) H Lymphocytes (%) (Auto) 10.1 % (20.0-45.0) L Monocytes (%) (Auto) 8.1 % (1.0-10.0) Eosinophils (%) (Auto) 0.5 % (0.0-3.0) Basophils (%) (Auto) 0.7 % (0.0-2.0) Sodium Level 136 MMOL/L (136-145) Potassium Level 3.6 MMOL/L (3.5-5.1) Chloride Level 101 MMOL/L (98-107) Carbon Dioxide Level 27 MMOL/L (21-32) Anion Gap 8 mmol/L (5-15) Blood Urea Nitrogen 14 mg/dL (7-18) Creatinine 0.9 MG/DL (0.55-1.30) Estimat Glomerular Filtration Rate > 60 mL/min (>60) Glucose Level 201 MG/DL (74-106) H Uric Acid 3.4 MG/DL (2.6-7.2) Calcium Level 8.7 MG/DL (8.5-10.1) Phosphorus Level 3.7 MG/DL (2.5-4.9) Magnesium Level 1.8 MG/DL (1.8-2.4) Total Bilirubin 0.5 MG/DL (0.2-1.0) Aspartate Amino Transf (AST/SGOT) 22 U/L (15-37) Alanine Aminotransferase (ALT/SGPT) 19 U/L (12-78) Alkaline Phosphatase 84 U/L (46-116) C-Reactive Protein, Quantitative 17.0 mg/dL (0.00-0.90) H Pro-B-Type Natriuretic Peptide 393 pg/mL (0-125) H Total Protein 7.3 G/DL (6.4-8.2) Albumin 2.1 G/DL (3.4-5.0) L Globulin 5.2 g/dL Albumin/Globulin Ratio 0.4 (1.0-2.7) L Test 04/27/20 16:25 POC Whole Blood Glucose Pending Larissa Tavares PA-C Apr 27, 2020 17:22
--- NOTE | 2020-04-27 21:03 | Infectious Diseases Prog Note ---
Assessment/Plan Problems: (1) Pseudomonas urinary tract infection Assessment & Plan: S/P aztreonam for 7 days , RESOLVED (2) Hypoxemia requiring supplemental oxygen Assessment & Plan: with negative COVID 19 PER pcr and negative CXR for infiltration , influenza A&B are both negative. OFF isolation (3) Fever Assessment & Plan: resolved , suspect due to UTI already on aztreonam (4) Recurrent seizures Assessment & Plan: reloaded with meds, watch out for breakthrough , neurology eval, aspiration precaution Subjective ROS Limited/Unobtainable: Yes Allergies: Coded Allergies: No Known Allergies (Unverified , 04/18/20) he was lying in bed awake but unresponsive to verbal commands , had no fever or chills, no cough or shortness of breath and no diarrhea. Objective Last 24 Hour Vital Signs Date Time Temp Pulse Resp B/P (MAP) Pulse Ox O2 Delivery O2 Flow Rate FiO2 04/27/20 17:36 127/79 04/27/20 15:27 97.6 89 19 127/79 (95) 96 04/27/20 15:05 129/71 04/27/20 12:00 98.5 79 18 129/71 (90) 98 04/27/20 09:46 101 126/83 04/27/20 09:46 126/83 04/27/20 09:45 126/83 04/27/20 09:00 Room Air 04/27/20 08:00 98.7 101 18 126/83 (97) 99 04/27/20 06:00 98.8 100 20 145/76 (99) 95 04/27/20 05:58 138/76 04/27/20 04:00 98.8 100 20 145/76 (99) 95 04/27/20 00:00 98.5 90 20 137/73 (94) 98 04/26/20 21:25 95 137/76 04/26/20 21:25 137/76 Height (Feet): 5 Height (Inches): 5.00 Weight (Pounds): 134 General Appearance: WD/WN, no acute distress HEENT: normocephalic, atraumatic, anicteric, mucous membranes moist, PERRL Respiratory/Chest: chest wall non-tender, lungs clear, normal breath sounds, no respiratory distress, no accessory muscle use Cardiovascular: normal peripheral pulses, normal rate, regular rhythm, no gallop/murmur, no JVD Abdomen: normal bowel sounds, soft, non tender, no organomegaly, non distended, no mass, no scars Genitourinary: normal external genitalia Extremities: no cyanosis, no clubbing Skin: no rash, no lesions, no ulcers Neurologic/Psychiatric: 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, alert, responsive Lymphatic: no neck adenopathy, no groin adenopathy Musculoskeletal: normal muscle bulk, no effusion Laboratory Tests Test 04/26/20 21:20 04/27/20 06:38 04/27/20 07:30 04/27/20 11:45 POC Whole Blood Glucose 152 MG/DL (74-106) H 183 MG/DL (74-106) H Pending White Blood Count 10.4 K/UL (4.8-10.8) Red Blood Count 4.12 M/UL (4.70-6.10) L Hemoglobin 12.5 G/DL (14.2-18.0) L Hematocrit 38.3 % (42.0-52.0) L Mean Corpuscular Volume 93 FL (80-99) Mean Corpuscular Hemoglobin 30.3 PG (27.0-31.0) Mean Corpuscular Hemoglobin Concent 32.6 G/DL (32.0-36.0) Red Cell Distribution Width 13.1 % (11.6-14.8) Platelet Count 304 K/UL (150-450) Mean Platelet Volume 10.1 FL (6.5-10.1) Neutrophils (%) (Auto) 80.6 % (45.0-75.0) H Lymphocytes (%) (Auto) 10.1 % (20.0-45.0) L Monocytes (%) (Auto) 8.1 % (1.0-10.0) Eosinophils (%) (Auto) 0.5 % (0.0-3.0) Basophils (%) (Auto) 0.7 % (0.0-2.0) Sodium Level 136 MMOL/L (136-145) Potassium Level 3.6 MMOL/L (3.5-5.1) Chloride Level 101 MMOL/L (98-107) Carbon Dioxide Level 27 MMOL/L (21-32) Anion Gap 8 mmol/L (5-15) Blood Urea Nitrogen 14 mg/dL (7-18) Creatinine 0.9 MG/DL (0.55-1.30) Estimat Glomerular Filtration Rate > 60 mL/min (>60) Glucose Level 201 MG/DL (74-106) H Uric Acid 3.4 MG/DL (2.6-7.2) Calcium Level 8.7 MG/DL (8.5-10.1) Phosphorus Level 3.7 MG/DL (2.5-4.9) Magnesium Level 1.8 MG/DL (1.8-2.4) Total Bilirubin 0.5 MG/DL (0.2-1.0) Aspartate Amino Transf (AST/SGOT) 22 U/L (15-37) Alanine Aminotransferase (ALT/SGPT) 19 U/L (12-78) Alkaline Phosphatase 84 U/L (46-116) C-Reactive Protein, Quantitative 17.0 mg/dL (0.00-0.90) H Pro-B-Type Natriuretic Peptide 393 pg/mL (0-125) H Total Protein 7.3 G/DL (6.4-8.2) Albumin 2.1 G/DL (3.4-5.0) L Globulin 5.2 g/dL Albumin/Globulin Ratio 0.4 (1.0-2.7) L Test 04/27/20 16:25 POC Whole Blood Glucose Pending Current Medications Medications (Trade) Dose Ordered Sig/Kamron Route PRN Reason Start Time Stop Time Status Last Admin Dose Admin Chlorhexidine Gluconate (Haylie-Hex 2%) 1 applic DAILY@2000 TOPIC 04/22/20 20:00 07/21/20 19:59 04/26/20 21:39 Dextrose (Dextrose 50%) 25 ml Q30M PRN IV Hypoglycemia 04/19/20 07:30 07/18/20 07:29 Dextrose (Dextrose 50%) 50 ml Q30M PRN IV Hypoglycemia 04/19/20 07:30 07/18/20 07:29 Enoxaparin Sodium (Lovenox) 60 mg EVERY 12 HOURS SUBQ 04/19/20 09:00 07/18/20 08:59 04/27/20 09:47 Famotidine (Pepcid) 20 mg BID ORAL 04/27/20 18:00 07/26/20 17:59 04/27/20 17:36 Folic Acid (Folate) 3 mg DAILY ORAL 04/21/20 09:00 05/21/20 08:59 04/27/20 09:46 Hydralazine HCl (Apresoline) 25 mg Q8HR ORAL 04/27/20 14:00 07/26/20 12:59 04/27/20 15:05 Insulin Aspart (NovoLOG) BEFORE MEALS AND HS SUBQ 04/19/20 11:30 07/18/20 11:29 04/27/20 17:41 Insulin Detemir (Levemir) 6 units QHS SUBQ 04/25/20 22:45 07/24/20 22:44 04/26/20 21:00 Levetiracetam 100 ml @ 400 mls/hr Q12HR IVPB 04/19/20 00:00 07/18/20 00:00 04/27/20 09:44 Lisinopril (ZestriL) 10 mg BID ORAL 04/26/20 18:00 05/23/20 09:29 04/27/20 17:36 Metoprolol Tartrate (Lopressor) 50 mg Q12HR ORAL 04/27/20 09:00 07/26/20 08:59 04/27/20 09:46 Nitroglycerin (Nitro-Bid) 1 inch DAILY TOPIC 04/19/20 09:30 05/19/20 09:29 04/27/20 09:46 Hermann Blue M.D. Apr 27, 2020 21:03
[2020-04-27] MEDS: Levemir Flexpen SUBQ SCH (22:22)
[2020-04-27] MEDS: Dyna-Hex 2% Top Sol 2oz TOPIC SCH (22:23)
[2020-04-28] VITALS: BP 112/40
[2020-04-28 04:00] VITALS: BP 116/59
[2020-04-28] MEDS: HydrALAZINE 25mg tab ORAL SCH ×2 (06:00→14:02)
[2020-04-28] MEDS: NovoLOG Insulin Flexpen SUBQ SCH ×3 (06:15→17:34)
[2020-04-28 07:46] LABS: ALANINE AMINOTRANSFERASE 19 U/L (12-78); ALBUMIN/GLOBULIN RATIO 0.4 (1.0-2.7); ALKALINE PHOSPHATASE 84 U/L (46-116); ANION GAP 10 mmol/L (5-15); ASPARTATE AMINO TRANSFERASE 34 U/L (15-37); BILIRUBIN,TOTAL 0.5 MG/DL (0.2-1.0); BLOOD UREA NITROGEN 12 mg/dL (7-18); CALCIUM 8.4 MG/DL (8.5-10.1); CARBON DIOXIDE 26 MMOL/L (21-32); CHLORIDE 103 MMOL/L (98-107); CREATININE 1.1 MG/DL (0.55-1.30); POTASSIUM 3.1 MMOL/L (3.5-5.1); SODIUM 139 MMOL/L (136-145)
[2020-04-28 08:00] VITALS: BP 132/90
[2020-04-28 08:49] LABS: PHOSPHORUS 3.1 MG/DL (2.5-4.9)
--- NOTE | 2020-04-28 09:26 | Cardiology Progress Note ---
Assessment/Plan Status Narrative Awake and calm, aphasic Potassium still low Magnesium low In SR with PVCs, hemodynamically stable Assessment/Plan 1. Seizure disorder with recent seizure, on Keppra 2. HTN, under better control on current plan 3. Afib/aflutter, converted to SR s/p diltiazem - rate controlled in SR with PVCs Bb for rate and rhythm control Lovenox for AC during hospitalization for PAF not a good candidate for DOAC due to seizure activity and increased risk of bleeding ASA 81mg daily at discharge Not on amiodarone for rhythm due to Keppa interaction 4. HFpEF, acute on chronic diastolic HF PO Lasix for diuresis BNP improved 5. DMII 6. Hypokalemia - persistent 7. CKD 8. Hypomagnesemic 9. UTI s/p IV abx per ID Subjective ROS Limited/Unobtainable: Yes Cardiovascular: Reports: no symptoms Respiratory: Reports: no symptoms Gastrointestinal/Abdominal: Reports: no symptoms Subjective no acute events, resting comfortably Objective Last 24 Hour Vital Signs Date Time Temp Pulse Resp B/P (MAP) Pulse Ox O2 Delivery O2 Flow Rate FiO2 04/28/20 08:00 98.2 99 20 132/90 (104) 95 04/28/20 04:00 99.7 89 18 116/59 (78) 95 04/28/20 00:00 98.2 81 17 112/40 (64) 96 04/27/20 22:24 155/93 04/27/20 22:24 103 155/93 04/27/20 21:00 Room Air 04/27/20 20:00 98.2 93 20 125/65 (85) 96 04/27/20 17:36 127/79 04/27/20 15:27 97.6 89 19 127/79 (95) 96 04/27/20 15:05 129/71 04/27/20 12:00 98.5 79 18 129/71 (90) 98 04/27/20 09:46 101 126/83 04/27/20 09:46 126/83 04/27/20 09:45 126/83 General Appearance: no apparent distress, alert EENT: PERRL/EOMI, normal ENT inspection Neck: supple, no JVD Rhythm: NSR, PVCs Cardiovascular: normal rate, regular rhythm Respiratory/Chest: no respiratory distress, no accessory muscle use Abdomen: non tender, soft Extremities: no swelling Pulses: decreased: PT (L), PT (R) Neurologic: alert, motor weakness Intake and Output 04/27/20 04/28/20 19:00 07:00 Intake Total 300 ml 400 ml Output Total 900 ml 600 ml Balance -600 ml -200 ml IV Total 400 ml Other 300 ml Output Urine Total 900 ml 600 ml # Bowel Movements 1 Laboratory Tests Test 04/27/20 11:45 04/27/20 16:25 04/27/20 22:20 04/28/20 06:00 POC Whole Blood Glucose Pending Pending 285 MG/DL (74-106) H 168 MG/DL (74-106) H Test 04/28/20 06:03 Sodium Level 139 MMOL/L (136-145) Potassium Level 3.1 MMOL/L (3.5-5.1) L Chloride Level 103 MMOL/L (98-107) Carbon Dioxide Level 26 MMOL/L (21-32) Anion Gap 10 mmol/L (5-15) Blood Urea Nitrogen 12 mg/dL (7-18) Creatinine 1.1 MG/DL (0.55-1.30) Estimat Glomerular Filtration Rate > 60 mL/min (>60) Glucose Level 176 MG/DL (74-106) H Calcium Level 8.4 MG/DL (8.5-10.1) L Phosphorus Level 3.1 MG/DL (2.5-4.9) Magnesium Level 1.8 MG/DL (1.8-2.4) Total Bilirubin 0.5 MG/DL (0.2-1.0) Aspartate Amino Transf (AST/SGOT) 34 U/L (15-37) Alanine Aminotransferase (ALT/SGPT) 19 U/L (12-78) Alkaline Phosphatase 84 U/L (46-116) Total Protein 7.2 G/DL (6.4-8.2) Albumin 2.0 G/DL (3.4-5.0) L Globulin 5.2 g/dL Albumin/Globulin Ratio 0.4 (1.0-2.7) Larissa Woodward PA-C Apr 28, 2020 09:26
--- NOTE | 2020-04-28 09:57 | Pulmonology Progress Note ---
Subjective ROS Limited/Unobtainable: Yes Interval Events: None new Constitutional: Reports: no symptoms HEENT: Repors: no symptoms Respiratory: Reports: no symptoms Cardiovascular: Reports: no symptoms Gastrointestinal/Abdominal: Reports: no symptoms Allergies: Coded Allergies: No Known Allergies (Unverified , 04/18/20) Objective Last 24 Hour Vital Signs Date Time Temp Pulse Resp B/P (MAP) Pulse Ox O2 Delivery O2 Flow Rate FiO2 04/28/20 08:00 98.2 99 20 132/90 (104) 95 04/28/20 04:00 99.7 89 18 116/59 (78) 95 04/28/20 00:00 98.2 81 17 112/40 (64) 96 04/27/20 22:24 155/93 04/27/20 22:24 103 155/93 04/27/20 21:00 Room Air 04/27/20 20:00 98.2 93 20 125/65 (85) 96 04/27/20 17:36 127/79 04/27/20 15:27 97.6 89 19 127/79 (95) 96 04/27/20 15:05 129/71 04/27/20 12:00 98.5 79 18 129/71 (90) 98 Intake and Output 04/27/20 04/28/20 19:00 07:00 Intake Total 300 ml 400 ml Output Total 900 ml 600 ml Balance -600 ml -200 ml IV Total 400 ml Other 300 ml Output Urine Total 900 ml 600 ml # Bowel Movements 1 General Appearance: no acute distress HEENT: normocephalic Respiratory: chest wall non-tender, lungs clear Cardiovascular: normal peripheral pulses Abdomen: normal bowel sounds Laboratory Tests 04/27/20 11:45: POC Whole Blood Glucose [Pending] 04/27/20 16:25: POC Whole Blood Glucose [Pending] 04/27/20 22:20: POC Whole Blood Glucose 285H 04/28/20 06:00: POC Whole Blood Glucose 168H 04/28/20 06:03: Sodium Level 139, Potassium Level 3.1L, Chloride Level 103, Carbon Dioxide Level 26, Anion Gap 10, Blood Urea Nitrogen 12, Creatinine 1.1, Estimat Glomerular Filtration Rate > 60, Glucose Level 176H, Calcium Level 8.4L, Phosphorus Level 3.1, Magnesium Level 1.8, Total Bilirubin 0.5, Aspartate Amino Transf (AST/SGOT) 34, Alanine Aminotransferase (ALT/SGPT) 19, Alkaline Phosphatase 84, Total Protein 7.2, Albumin 2.0L, Globulin 5.2, Albumin/Globulin Ratio 0.4L Current Medications Medications (Trade) Dose Ordered Sig/Kamron Route PRN Reason Start Time Stop Time Status Last Admin Dose Admin Chlorhexidine Gluconate (Haylie-Hex 2%) 1 applic DAILY@2000 TOPIC 04/22/20 20:00 07/21/20 19:59 04/27/20 22:23 Dextrose (Dextrose 50%) 25 ml Q30M PRN IV Hypoglycemia 04/19/20 07:30 07/18/20 07:29 Dextrose (Dextrose 50%) 50 ml Q30M PRN IV Hypoglycemia 04/19/20 07:30 07/18/20 07:29 Enoxaparin Sodium (Lovenox) 60 mg EVERY 12 HOURS SUBQ 04/19/20 09:00 07/18/20 08:59 04/27/20 22:17 Famotidine (Pepcid) 20 mg BID ORAL 04/27/20 18:00 07/26/20 17:59 04/27/20 17:36 Folic Acid (Folate) 3 mg DAILY ORAL 04/21/20 09:00 05/21/20 08:59 04/27/20 09:46 Hydralazine HCl (Apresoline) 25 mg Q8HR ORAL 04/27/20 14:00 07/26/20 12:59 04/27/20 22:24 Insulin Aspart (NovoLOG) BEFORE MEALS AND HS SUBQ 04/19/20 11:30 07/18/20 11:29 04/28/20 06:15 Insulin Detemir (Levemir) 6 units QHS SUBQ 04/25/20 22:45 07/24/20 22:44 04/27/20 22:22 Levetiracetam 100 ml @ 400 mls/hr Q12HR IVPB 04/19/20 00:00 07/18/20 00:00 04/27/20 22:16 Lisinopril (ZestriL) 10 mg BID ORAL 04/26/20 18:00 05/23/20 09:29 04/27/20 17:36 Magnesium Sulfate 100 ml @ 100 mls/hr ONCE IVPB 04/28/20 10:00 04/28/20 12:00 Metoprolol Tartrate (Lopressor) 50 mg Q12HR ORAL 04/27/20 09:00 07/26/20 08:59 04/27/20 22:24 Nitroglycerin (Nitro-Bid) 1 inch DAILY TOPIC 04/19/20 09:30 05/19/20 09:29 04/27/20 09:46 Potassium Chloride (K-Dur) 40 meq TWICE A DAY ORAL 04/28/20 09:00 07/27/20 08:59 Assessment/Plan Assessment/Plan IMPRESSION: 1. Negative COVID-19 pneumonia. 2. Recurrent seizures. 3. Medication noncompliance. 4. CVA. 5. jail resident. DISCUSSION: Continue medications for seizures. DVT prophylaxis. I will follow as needed. Eddie Miller Omar Syed MD Apr 28, 2020 09:57
[2020-04-28] MEDS: levETIRAcetam 500mg/NS100ml 100 ML IVPB SCH (09:59)
[2020-04-28] MEDS: Lisinopril 10mg tab ORAL SCH ×2 (10:00→17:35)
[2020-04-28] MEDS: Metoprolol Tartrate 50mg tab ORAL SCH (10:00)
[2020-04-28] MEDS: Nitroglycerin 2% oint pkt TOPIC SCH (10:02)
[2020-04-28] MEDS: Enoxaparin 60mg Inj SUBQ SCH (10:03)
[2020-04-28 12:00] VITALS: BP 147/97
--- NOTE | 2020-04-28 12:23 | Nephrology Progress Note ---
Assessment/Plan Problem List: (1) Hypokalemia (2) Suspected 2019 novel coronavirus infection (3) Recurrent seizures (4) Elevated troponin I level Assessment Electrolyte imbalance Recurrent seizures. Medication noncompliance. CVA. intermediate resident. Elevated troponin I Plan April 28: Labs reviewed. Potassium supplement given. Medication list reviewed. Continue per consultants. April 27: Labs reviewed. Electrolyte within normal limits. Medication list reviewed. BP medication dosages adjusted with parameters as needed. April 26: Labs reviewed. Medication list reviewed. Discussed with PMD. IV Lasix, cardiazem, spironolactone was all discontinued. Lisinopril increased to twice daily with proper BP parameters. Potassium supplement given. Continue to monitor renal parameters and electrolytes. Per orders. April 25: Labs reviewed. Low magnesium and low potassium addressed. Continue per consultants. Renal parameters stable. April 24: No labs drawn today. Yesterday's labs reviewed. Stable from renal standpoint of view. Continue per consultants. April 23: Today's labs not drawn yet. Meds reviewed. Continue per consultants. April 22: Blood pressure better controlled. Half-normal saline IV fluid discontinued. Continue to monitor electrolytes. Low magnesium replaced. Co ntinue per consultants. Previously: Add Zestril for better BP control. Reviewed blood pressure medications. Magnesium, phosphorus, potassium chloride supplement as needed Monitor electrolytes Continue per consultants Subjective ROS Limited/Unobtainable: Yes Objective Objective Last 24 Hour Vital Signs Date Time Temp Pulse Resp B/P (MAP) Pulse Ox O2 Delivery O2 Flow Rate FiO2 04/28/20 10:02 132/90 04/28/20 10:00 99 132/90 04/28/20 10:00 132/90 04/28/20 09:00 Room Air 04/28/20 08:00 98.2 99 20 132/90 (104) 95 04/28/20 04:00 99.7 89 18 116/59 (78) 95 04/28/20 00:00 98.2 81 17 112/40 (64) 96 04/27/20 22:24 155/93 04/27/20 22:24 103 155/93 04/27/20 21:00 Room Air 04/27/20 20:00 98.2 93 20 125/65 (85) 96 04/27/20 17:36 127/79 04/27/20 15:27 97.6 89 19 127/79 (95) 96 04/27/20 15:05 129/71 Intake and Output 04/27/20 04/28/20 19:00 07:00 Intake Total 300 ml 400 ml Output Total 900 ml 600 ml Balance -600 ml -200 ml IV Total 400 ml Other 300 ml Output Urine Total 900 ml 600 ml # Bowel Movements 1 Current Medications Medications (Trade) Dose Ordered Sig/Kamron Route PRN Reason Start Time Stop Time Status Last Admin Dose Admin Chlorhexidine Gluconate (Haylie-Hex 2%) 1 applic DAILY@2000 TOPIC 04/22/20 20:00 07/21/20 19:59 04/27/20 22:23 Dextrose (Dextrose 50%) 25 ml Q30M PRN IV Hypoglycemia 04/19/20 07:30 07/18/20 07:29 Dextrose (Dextrose 50%) 50 ml Q30M PRN IV Hypoglycemia 04/19/20 07:30 07/18/20 07:29 Enoxaparin Sodium (Lovenox) 60 mg EVERY 12 HOURS SUBQ 04/19/20 09:00 07/18/20 08:59 04/28/20 10:03 Famotidine (Pepcid) 20 mg BID ORAL 04/27/20 18:00 07/26/20 17:59 04/28/20 10:01 Folic Acid (Folate) 3 mg DAILY ORAL 04/21/20 09:00 05/21/20 08:59 04/28/20 10:00 Hydralazine HCl (Apresoline) 25 mg Q8HR ORAL 04/27/20 14:00 07/26/20 12:59 04/27/20 22:24 Insulin Aspart (NovoLOG) BEFORE MEALS AND HS SUBQ 04/19/20 11:30 07/18/20 11:29 04/28/20 12:13 Insulin Detemir (Levemir) 6 units QHS SUBQ 04/25/20 22:45 07/24/20 22:44 04/27/20 22:22 Levetiracetam 100 ml @ 400 mls/hr Q12HR IVPB 04/19/20 00:00 07/18/20 00:00 04/28/20 09:59 Lisinopril (ZestriL) 10 mg BID ORAL 04/26/20 18:00 05/23/20 09:29 04/28/20 10:00 Metoprolol Tartrate (Lopressor) 50 mg Q12HR ORAL 04/27/20 09:00 07/26/20 08:59 04/28/20 10:00 Nitroglycerin (Nitro-Bid) 1 inch DAILY TOPIC 04/19/20 09:30 05/19/20 09:29 04/28/20 10:02 Potassium Chloride (K-Dur) 40 meq TWICE A DAY ORAL 04/28/20 09:00 07/27/20 08:59 04/28/20 10:01 Laboratory Tests 04/27/20 16:25: POC Whole Blood Glucose [Pending] 04/27/20 22:20: POC Whole Blood Glucose 285H 04/28/20 06:00: POC Whole Blood Glucose 168H 04/28/20 06:03: Sodium Level 139, Potassium Level 3.1L, Chloride Level 103, Carbon Dioxide Level 26, Anion Gap 10, Blood Urea Nitrogen 12, Creatinine 1.1, Estimat Glomerular Filtration Rate > 60, Glucose Level 176H, Calcium Level 8.4L, Phosphorus Level 3.1, Magnesium Level 1.8, Total Bilirubin 0.5, Aspartate Amino Transf (AST/SGOT) 34, Alanine Aminotransferase (ALT/SGPT) 19, Alkaline Phosphatase 84, Total Protein 7.2, Albumin 2.0L, Globulin 5.2, Albumin/Globulin Ratio 0.4L 04/28/20 12:09: POC Whole Blood Glucose 262H Height (Feet): 5 Height (Inches): 5.00 Weight (Pounds): 134 General Appearance: no apparent distress Cardiovascular: tachycardia Respiratory/Chest: decreased breath sounds Abdomen: distended Objective No change Reymundo Doyle MD Apr 28, 2020 12:23
[2020-04-28] MEDS ORDERED: ZESTRIL10 M1 ORAL (14:28)
[2020-04-28] MEDS ORDERED: LEVEMIR FL100 UNIT/1 SUBQ (14:28)
[2020-04-28] MEDS ORDERED: HYDRALAZINE HCL25 M1 ORAL (14:28)
[2020-04-28] MEDS ORDERED: K-TAB ER20 MEQ ORAL (14:28)
[2020-04-28] MEDS ORDERED: LOVENOX10 M1 SUBQ (14:28)
[2020-04-28] MEDS ORDERED: METOPROLOL TART50 MG ORAL (14:28)
[2020-04-28] MEDS ORDERED: LEVETIRACETAM500 M1 ORAL (14:28)
[2020-04-28] MEDS ORDERED: FAMOTIDINE20 MG ORAL (14:28)
--- NOTE | 2020-04-28 14:30 | General Progress Note ---
Subjective Allergies: Coded Allergies: No Known Allergies (Unverified , 04/18/20) Objective Last 24 Hour Vital Signs Date Time Temp Pulse Resp B/P (MAP) Pulse Ox O2 Delivery O2 Flow Rate FiO2 04/28/20 14:02 147/97 04/28/20 12:00 98.2 94 147/97 (114) 04/28/20 10:02 132/90 04/28/20 10:00 99 132/90 04/28/20 10:00 132/90 04/28/20 09:00 Room Air 04/28/20 08:00 98.2 99 20 132/90 (104) 95 04/28/20 04:00 99.7 89 18 116/59 (78) 95 04/28/20 00:00 98.2 81 17 112/40 (64) 96 04/27/20 22:24 155/93 04/27/20 22:24 103 155/93 04/27/20 21:00 Room Air 04/27/20 20:00 98.2 93 20 125/65 (85) 96 04/27/20 17:36 127/79 04/27/20 15:27 97.6 89 19 127/79 (95) 96 04/27/20 15:05 129/71 Intake and Output 04/27/20 04/28/20 19:00 07:00 Intake Total 300 ml 400 ml Output Total 900 ml 600 ml Balance -600 ml -200 ml IV Total 400 ml Other 300 ml Output Urine Total 900 ml 600 ml # Bowel Movements 1 Laboratory Tests 04/27/20 16:25: POC Whole Blood Glucose [Pending] 04/27/20 22:20: POC Whole Blood Glucose 285H 04/28/20 06:00: POC Whole Blood Glucose 168H 04/28/20 06:03: Sodium Level 139, Potassium Level 3.1L, Chloride Level 103, Carbon Dioxide Level 26, Anion Gap 10, Blood Urea Nitrogen 12, Creatinine 1.1, Estimat Glomerular Filtration Rate > 60, Glucose Level 176H, Calcium Level 8.4L, Phosphorus Level 3 .1, Magnesium Level 1.8, Total Bilirubin 0.5, Aspartate Amino Transf (AST/SGOT) 34, Alanine Aminotransferase (ALT/SGPT) 19, Alkaline Phosphatase 84, Total Protein 7.2, Albumin 2.0L, Globulin 5.2, Albumin/Globulin Ratio 0.4L 11/17/20 12:09: POC Whole Blood Glucose 262H Height (Feet): 5 Height (Inches): 5.00 Weight (Pounds): 134 Assessment/Plan Status: stable Assessment/Plan: S, O: Limited, patient is awake, poor historian PHYSICAL EXAMINATION:HEAD AND NECK: Atraumatic and normocephalic. CHEST: Diffuse bronchial breathing sounds.HEART: S1 and S2. Irregular rate and rhythm. ABDOMEN: Soft. No organomegaly.MUSCULOSKELETAL: Spontaneous movement in all four extremities. Limited evaluation.NEUROLOGY: The patient is delirious. Meds: reviewed and reconciled ASSESSMENT: 1. Sepsis 2. UTI- Pseudomonas 3. Dysphagia 4. Breakthrough seizure secondary to noncompliance with medications. 2. Leukocytosis, likely reactive. 3. Chronic anemia. 4. Hypokalemia. 5. Diabetes type 2. 6. Abnormal troponin. 7. Atrial flutter. 8. GI and DVT prophylaxis. 9. We will continue with antiepileptic medication. 10. Continue with neuro checks. 11. We will start the patient on aspirin. 12. We will monitor off the antibiotic for now. 13. Obtain 2D echo. Plan: off isolation per ID, Pending COVID-PCR test High Troponin levels, followup with cardiology Dysphagia, pending Video swallow start low dose Lantus and will monitor blood glucose Resolution of abnormal leukocytosis Discusssion: Modification of current BP medication , in conjunction with severe hypokalemia. Optimization of medication completed. Medically stable to continue optimization of ATC and BP and DM medication as an outpatient . David Kaplan MD Apr 28, 2020 14:30
--- NOTE | 2020-04-28 14:54 | Infectious Diseases Prog Note ---
Assessment/Plan Problems: (1) Pseudomonas urinary tract infection Assessment & Plan: S/P aztreonam for 7 days , RESOLVED . we will continue to monitor patient clinically and make recommendations as needed since he is high risk for reinfection (2) Hypoxemia requiring supplemental oxygen Assessment & Plan: with negative COVID 19 PER pcr and negative CXR for infiltration , influenza A&B are both negative. OFF isolation (3) Fever Assessment & Plan: resolved , suspect due to UTI already on aztreonam (4) Recurrent seizures Assessment & Plan: reloaded with meds, watch out for breakthrough , neurology eval, aspiration precaution Subjective ROS Limited/Unobtainable: Yes Allergies: Coded Allergies: No Known Allergies (Unverified , 04/18/20) he was lying in bed awake but unresponsive to verbal commands , had no fever or chills, no cough or shortness of breath and no diarrhea. Objective Last 24 Hour Vital Signs Date Time Temp Pulse Resp B/P (MAP) Pulse Ox O2 Delivery O2 Flow Rate FiO2 04/28/20 14:02 147/97 04/28/20 12:00 98.2 94 147/97 (114) 04/28/20 10:02 132/90 04/28/20 10:00 99 132/90 04/28/20 10:00 132/90 04/28/20 09:00 Room Air 04/28/20 08:00 98.2 99 20 132/90 (104) 95 04/28/20 04:00 99.7 89 18 116/59 (78) 95 04/28/20 00:00 98.2 81 17 112/40 (64) 96 04/27/20 22:24 155/93 04/27/20 22:24 103 155/93 04/27/20 21:00 Room Air 04/27/20 20:00 98.2 93 20 125/65 (85) 96 04/27/20 17:36 127/79 04/27/20 15:27 97.6 89 19 127/79 (95) 96 04/27/20 15:05 129/71 Height (Feet): 5 Height (Inches): 5.00 Weight (Pounds): 134 General Appearance: WD/WN, no acute distress HEENT: normocephalic, atraumatic, anicteric, mucous membranes moist, PERRL Respiratory/Chest: chest wall non-tender, lungs clear, normal breath sounds, no respiratory distress, no accessory muscle use Cardiovascular: normal peripheral pulses, normal rate, regular rhythm, no gallop/murmur, no JVD Abdomen: normal bowel sounds, soft, non tender, no organomegaly, non distended, no mass, no scars Genitourinary: normal external genitalia Extremities: no cyanosis, no clubbing Skin: no rash, no lesions, no ulcers Neurologic/Psychiatric: alert, responsive Lymphatic: no neck adenopathy, no groin adenopathy Musculoskeletal: normal muscle bulk, no effusion Laboratory Tests Test 04/27/20 16:25 04/27/20 22:20 04/28/20 06:00 04/28/20 06:03 POC Whole Blood Glucose Pending 285 MG/DL (74-106) H 168 MG/DL (74-106) H Sodium Level 139 MMOL/L (136-145) Potassium Level 3.1 MMOL/L (3.5-5.1) L Chloride Level 103 MMOL/L (98-107) Carbon Dioxide Level 26 MMOL/L (21-32) Anion Gap 10 mmol/L (5-15) Blood Urea Nitrogen 12 mg/dL (7-18) Creatinine 1.1 MG/DL (0.55-1.30) Estimat Glomerular Filtration Rate > 60 mL/min (>60) Glucose Level 176 MG/DL (74-106) H Calcium Level 8.4 MG/DL (8.5-10.1) L Phosphorus Level 3.1 MG/DL (2.5-4.9) Magnesium Level 1.8 MG/DL (1.8-2.4) Total Bilirubin 0.5 MG/DL (0.2-1.0) Aspartate Amino Transf (AST/SGOT) 34 U/L (15-37) Alanine Aminotransferase (ALT/SGPT) 19 U/L (12-78) Alkaline Phosphatase 84 U/L (46-116) Total Protein 7.2 G/DL (6.4-8.2) Albumin 2.0 G/DL (3.4-5.0) L Globulin 5.2 g/dL Albumin/Globulin Ratio 0.4 (1.0-2.7) L Test 04/28/20 12:09 POC Whole Blood Glucose 262 MG/DL (74-106) H Current Medications Medications (Trade) Dose Ordered Sig/Kamron Route PRN Reason Start Time Stop Time Status Last Admin Dose Admin Chlorhexidine Gluconate (Haylie-Hex 2%) 1 applic DAILY@1999 TOPIC 04/22/20 20:00 07/21/20 19:59 04/27/20 22:23 Dextrose (Dextrose 50%) 25 ml Q30M PRN IV Hypoglycemia 04/19/20 07:30 07/18/20 07:29 Dextrose (Dextrose 50%) 50 ml Q30M PRN IV Hypoglycemia 04/19/20 07:30 07/18/20 07:29 Enoxaparin Sodium (Lovenox) 60 mg EVERY 12 HOURS SUBQ 04/19/20 09:00 07/18/20 08:59 04/28/20 10:03 Famotidine (Pepcid) 20 mg BID ORAL 04/27/20 18:00 07/26/20 17:59 04/28/20 10:01 Folic Acid (Folate) 3 mg DAILY ORAL 04/21/20 09:00 05/21/20 08:59 04/28/20 10:00 Hydralazine HCl (Apresoline) 25 mg Q8HR ORAL 04/27/20 14:00 07/26/20 12:59 04/28/20 14:02 Insulin Aspart (NovoLOG) BEFORE MEALS AND HS SUBQ 04/19/20 11:30 07/18/20 11:29 04/28/20 12:13 Insulin Detemir (Levemir) 10 units QHS SUBQ 04/28/20 21:00 07/27/20 20:59 Levetiracetam 100 ml @ 400 mls/hr Q12HR IVPB 04/19/20 00:00 07/18/20 00:00 04/28/20 09:59 Lisinopril (ZestriL) 10 mg BID ORAL 04/26/20 18:00 05/23/20 09:29 04/28/20 10:00 Metoprolol Tartrate (Lopressor) 50 mg Q12HR ORAL 04/27/20 09:00 07/26/20 08:59 04/28/20 10:00 Nitroglycerin (Nitro-Bid) 1 inch DAILY TOPIC 04/19/20 09:30 05/19/20 09:29 04/28/20 10:02 Potassium Chloride (K-Dur) 40 meq DAILY ORAL 04/29/20 09:00 07/27/20 08:59 Hermann Blue M.D. Apr 28, 2020 14:54
[2020-04-28 16:00] VITALS: BP 124/56
[2020-04-28 17:35] VITALS: BP 147/97
[2020-04-28] MEDS ORDERED: Levemir Flexpen SUBQ SCH (21:00)
--- NOTE | 2020-04-29 15:25 | Discharge Summary ---
Discharge Summary Discharge Summary _ DATE OF ADMISSION: 04/18/2020 DATE OF DISCHARGE: 04/28/2020 DISCHARGED BY: Dr. Kaplan REASON FOR ADMISSION: 64 years old male with past medical history of CVA, seizure disorder, presented for recurrent seizure. Patient apparently was noncompliant with his medication at the facility and had multiply seizures prior to presentation to ED , lasting approximately 1 minute. On arrival of paramedics, patient was actively seizing and received Versed given by paramedics. Upon arrival to ED patient was postictal and unable to provide any history. Patient was tachycardic with heart rate 144, blood pressure was elevated 196/102. Patient was hypoxic and required 100% nonrebreather mask. Laboratory work-up revealed mild leukocytosis WBC 11, hemoglobin 12.7, hematocrit 30.5, platelet count 197. Potassium 2.7. BUN 14, creatinine 1.2. Glucose 269. Troponin 0.29. EKG revealed atrial fibrillation with rapid ventricular response. AST 77, ALT 68. Rapid COVID-19 was negative. Chest x-ray revealed no acute cardiopulmonary pathology. Urinalysis revealed no pyuria, occasional yeast and occasional bacteria, +3 protein. In emergency department patient received IV diltiazem with achieving stable heart rate. Potassium was replaced. Patient loaded with Keppra and received Ativan, IV hydration. Patient subsequently admitted for further management. CONSULTANTS: reo asset manager Dr. Ojeda pulmonary Dr. Dalal ID specialist Dr. Blue solar project engineer Dr. Doyle [facility]SE: Patient admitted to monitored floor. Echocardiogram demonstrated preserved ejection fraction 60%. No evidence of wall motion abnormality. Repeated troponin showed elevation 0.773 and 0.823. Patient was on aspirin. and beta thomas. Lipid panel was stable. Per reo asset manager, patient had acute on chronic diastolic congestive heart failure. Patient was on diuretic with close monitoring of volumes. Blood pressure was managed with multiple antihypertensives, including hydralazine , beta-thomas , diuretic, SARAH inhibitor and Cardizem. Rate was controlled with diltiazem. During hospitalization patient hospitalization patient received Lovenox for anticoagulation. However patient was not a good candidate for DOAC due to seizure activity and increased risk of bleeding. Blood pressure was better controlled. Repeated Covid was negative as well. Urine culture revealed Pseudomonas aeruginosa . Patient completed treatment for UTI. Influenza a and B were negative. Fever resolved, likely was due to UTI. Supplemental oxygen provided and titrated to keep pulse oximetry above 92%. Pulmonary toilet provided. As patient clinically improved , he was able to be weaned from nonrebreather mask to nasal cannula and eventually to room air. Pulse oximetry remained stable on room air prior to discharge. Renal parameters and electrolytes were closely monitored, electrolytes corrected as needed . Magnesium, phosphorus and potassium were supplemented.. Blood sugar was managed with long-acting Levemir and sliding scale of insulin as needed. Seizure precaution maintained. Keppra continued. Ativan was on board as needed for breakthrough seizures. No evidence of seizure activity while in the hospital. GI prophylaxis provided . Patient was counseled to on compliance with medication regimen. Bedside swallow evaluation revealed high risk for aspiration. Diet texture provided per speech therapist recommendation. Strict aspiration precaution maintained. Patient required total assistance with meals. Speech therapist recommended video swallow evaluation when feasible. Patient clinically stabilized and was ready for discharge to [facility] for continuation of care. FINAL DIAGNOSES: Breakthrough seizure , likely secondary to noncompliance with medication Acute on chronic diastolic congestive heart failure with preserved ejection fraction Atrial fibrillation/flutter- converted to sinus rhythm Hypertension with initial hypertensive urgency Diabetes mellitus type 2 Hypoxemia requiring supplemental oxygen UTI with Pseudomonas aeruginosa Pneumonia Chronic anemia Elevated troponin Medication noncompliance CVA Electrolyte imbalance (hypokalemia, hypomagnesemia, hypophosphatemia) Dysphagia Chronic anemia DISCHARGE MEDICATIONS: See Medication Reconciliation list. DISCHARGE INSTRUCTIONS: Patient was discharged to the [facility] facility. Follow up with medical doctor at the facility. I have been assigned to dictate discharge summary for this account. I was not involved in the patient's management. Eli Goodwin NP Apr 29, 2020 15:25
== END 2020-04-28 20:50 | DRG 100 ==
LOC: EDBD 20:25 → EMR 20:36 → 2E 23:02 → EDBEDREQ 23:06 → 4E 04-23 01:02
DX: G40.909 Epilepsy, unspecified, not intractable, without status epilepticus (principal); I50.33 Acute on chronic diastolic (congestive) heart failure; J18.9 Pneumonia, unspecified organism; N39.0 Urinary tract infection, site not specified; I48.92 Unspecified atrial flutter; I16.0 Hypertensive urgency; I11.0 Hypertensive heart disease with heart failure; E83.42 Hypomagnesemia; E11.65 Type 2 diabetes mellitus with hyperglycemia; E87.6 Hypokalemia; Z91.14 Patient's other noncompliance with medication regimen; D64.9 Anemia, unspecified; I48.91 Unspecified atrial fibrillation; Z86.73 Personal history of transient ischemic attack (TIA), and cerebral infarction without residual deficits; Z20.828 Contact with and (suspected) exposure to other viral communicable diseases; R09.02 Hypoxemia; B96.5 Pseudomonas (aeruginosa) (mallei) (pseudomallei) as the cause of diseases classified elsewhere; R13.10 Dysphagia, unspecified; E83.39 Other disorders of phosphorus metabolism
CPT/HCPCS: 36415; 70450; 71045; 80053; 80061; 80202; 81003; 82248; 82550; 82607; 82728; 82746; 82962; 82977; 83036; 83540; 83550; 83735; 83880; 84100; 84132; 84443; 84484; 84550; 85007; 85025; 86140; 86710; 87040; 87081; 87086; 87181; 93005; 93306; 96361; 96365; 96375; 99285; J1815; J7030; J8499; S5561; U0002